=== PATIENT | female | born 1980 | race American Indian/Alaskan Native ===

== ENCOUNTER → 2017-10-19 08:24 | Outpatient (CLI) | payer MEDICAID, SELFPAY ==
[2017-10-21 11:40] LABS: Sequential Screen 2nd Trimeste SCREEN NEGATIVE
== END ==
DX: Z3A.16 16 weeks gestation of pregnancy (principal)
CPT/HCPCS: 36415; 86336

== ENCOUNTER → 2018-01-04 11:53 | Outpatient (CLI) | payer MEDICAID, SELFPAY ==
[2018-01-04 14:52] LABS: Hematocrit 34.3 % (36-46); Hemoglobin 11.5 g/dL (12.0-16.0)
[2018-01-04 15:22] LABS: GTT (PREG) 1 Hour PP 50gm Dose 101 mg/dL (76-139)
== END ==
DX: Z3A.26 26 weeks gestation of pregnancy (principal)
CPT/HCPCS: 36415; 82950; 85014; 85018

== ENCOUNTER 2018-01-20 09:09 | Observation (INO) | payer MEDICAID, SELFPAY ==
[2018-01-20] MEDS: NIFEdipine 10 MG CAPSULE PO ×4 (09:45→10:45)
[2018-01-20] MEDS: NIFEdipine 30 MG TAB ER PO (09:56)
[2018-01-20] MEDS: INDOMETHACIN 25 MG CAPSULE 50 MG PO (09:56)
[2018-01-20 10:17] LABS: Appearance Urine UA CLEAR; Bilirubin Urine UA NEGATIVE (NEGATIVE); Color Urine UA YELLOW; Glucose Urine UA NEGATIVE (Normal); Ketones Urine UA NEGATIVE (NEGATIVE); Leukocyte Esterase Urine UA NEGATIVE (NEGATIVE); Nitrite Urine UA Negative (Negative); Occult Blood Urine UA NEGATIVE (Negative); Protein Urine UA NEGATIVE (Negative); Specific Gravity Urine UA 1.015 (1.000-1.035); Urobilinogen Urine UA 0.2 E.U./dL (0.2)
[2018-01-20 10:17] LABS: Add Manual Diff / Slide Review NO; Basophils Percent Auto 0.5 % (0-2); Eosinophils Percent Auto 1.3 % (2-4); Hematocrit 35.3 % (36-46); Hemoglobin 11.9 g/dL (12.0-16.0); Lymphocytes Percent Auto 17.9 % (25-40); Mean Corpuscular HGB Conc 33.8 % (30-36); Mean Corpuscular Hemoglobin 28.8 PG (26-34); Mean Corpuscular Volume 85.2 fL (80-100); Monocytes Percent Auto 3.8 % (3-14); Neutrophils Absolute Auto 8300 /uL (3000-5900); Neutrophils Percent Auto 76.5 % (50-75); Platelet Count 364 X10^3/uL (150-400); Red Blood Cell Count 4.14 X10^6/uL (4.0-5.2); Red Cell Distribution Width 16.2 % (11.6-14.8); White Blood Cell Count 10.9 X10^3/uL (4.5-11.0)
[2018-01-20 10:23] LABS: Aspartate Aminotransferase 15 IU/L (14-36); Carbon Dioxide 18 mmol/L (22-32); Chloride 107 mmol/L (98-107); Estimated Glomerular Filt Rate > 60.0 mL/min (>60); HEMOLYSIS < 15 (0-50); Magnesium 1.9 mg/dL (1.6-2.3); Potassium 3.8 mmol/L (3.4-5.1); Sodium 134 mmol/L (137-145)
[2018-01-20 10:26] LABS: Blood Urea Nitrogen 2 mg/dL (7-17)
== END 2018-01-20 11:30 | disposition home or self-care (01) ==
DX: O60.03 Preterm labor without delivery, third trimester (principal); Z3A.29 29 weeks gestation of pregnancy
CPT/HCPCS: 59025; 59050; 80051; 81003; 82565; 82731; 83735; 84112; 84450; 84520; 84550; 85025; G0378; G0379

== ENCOUNTER → 2018-03-01 13:46 | Outpatient (CLI) | payer MEDICAID, SELFPAY | DX: Z34.93 Encounter for supervision of normal pregnancy, unspecified, third trimester (principal); Z3A.35 35 weeks gestation of pregnancy | CPT/HCPCS: 87081; 87653 ==

== ENCOUNTER → 2018-03-08 10:32 | Outpatient (CLI) | payer MEDICAID, SELFPAY ==
[2018-03-08 11:44] LABS: Add Manual Diff / Slide Review NO; Basophils Percent Auto 0.6 % (0-2); Eosinophils Percent Auto 0.9 % (2-4); Hematocrit 38.7 % (36-46); Hemoglobin 13.1 g/dL (12.0-16.0); Lymphocytes Percent Auto 23.4 % (25-40); Mean Corpuscular Hemoglobin 29.8 PG (26-34); Mean Corpuscular Volume 87.6 fL (80-100); Monocytes Percent Auto 3.8 % (3-14); Neutrophils Absolute Auto 7000 /uL (3000-5900); Neutrophils Percent Auto 71.3 % (50-75); Platelet Count 338 X10^3/uL (150-400); Red Blood Cell Count 4.41 X10^6/uL (4.0-5.2); Red Cell Distribution Width 16.4 % (11.6-14.8); White Blood Cell Count 9.8 X10^3/uL (4.5-11.0)
[2018-03-08 12:27] LABS: Alanine Aminotransferase 20 IU/L (9-52); Aspartate Aminotransferase 18 IU/L (14-36); BUN Creatinine Ratio 8.3 (6-22); Blood Urea Nitrogen 5 mg/dL (7-17); Estimated Glomerular Filt Rate > 60.0 mL/min (>60); Uric Acid 4.7 mg/dL (2.5-6.2)
== END ==
DX: O16.5 Unspecified maternal hypertension, complicating the puerperium (principal)
CPT/HCPCS: 36415; 82565; 84450; 84460; 84520; 84550; 85025

== ENCOUNTER 2018-03-15 11:09 | Observation (INO) | payer MEDICAID, SELFPAY ==
[2018-03-15] MEDS: MORPHINE 10 MG/ML INJ IM (14:10)
== END 2018-03-15 14:00 | disposition home or self-care (01) ==
DX: Z34.83 Encounter for supervision of other normal pregnancy, third trimester (principal); Z3A.37 37 weeks gestation of pregnancy
CPT/HCPCS: 59025; 59050; 96372; G0378; G0379; J2270

== ENCOUNTER 2018-03-17 12:50 | Outpatient (CLI) | payer MEDICAID, SELFPAY ==
--- NOTE | 2018-03-17 13:36 | PM.OBTRLD ---
Visit Information Visit Information Date of evaluation: 03/17/18 Primary OB Provider: Toi Ann On-call OB Provider: Susan Muhammad Reason for Evaluation: Yes rupture of membranes Exam Vital Signs (past 8 hours): Blood pressure 126/79, pulse of 95 Evaluation Evaluation Baseline heart rate: 125 Variability: Moderate (11-25) monitor accelerations: Present monitor decelerations: Absent Uterine Contraction Intensity: Mild Category of Tracing: I Non-invasive Membranes Rupture Test: negative Diagnosis, Plan/Disposition Final Diagnosis (1) 37 weeks gestation of : Current Visit: Yes Status: Acute (2) Third trimester : Current Visit: Yes Status: Acute Plan/Disposition Plan: Patient with no evidence of rupture membranes follow-up in 1 week or unless active labor, decreased movement, signs of preeclampsia
== END 2018-03-17 13:51 | disposition home or self-care (01) ==
LOC: OB 03-18 16:53
DX: Z03.71 Encounter for suspected problem with amniotic cavity and membrane ruled out (principal); Z3A.37 37 weeks gestation of pregnancy
CPT/HCPCS: 59025; 84112; G0378; G0379

== ENCOUNTER 2018-03-18 19:30 | Inpatient (IN) | payer MEDICAID, SELFPAY ==
[2018-03-18 20:30] VITALS: BP 172/104; PULSE 105
[2018-03-18] MEDS: HYDRALAZINE 20 MG/ML VIAL 5 MG IV ×2 (20:30→23:47)
[2018-03-18 20:40] LABS: Add Manual Diff / Slide Review NO; Eosinophils Percent Auto 0.6 % (2-4); Hematocrit 38.8 % (36-46); Lymphocytes Percent Auto 16.2 % (25-40); Mean Corpuscular HGB Conc 33.5 % (30-36); Mean Corpuscular Hemoglobin 29.4 PG (26-34); Mean Corpuscular Volume 87.8 fL (80-100); Neutrophils Absolute Auto 12000 /uL (3000-5900); Neutrophils Percent Auto 77.2 % (50-75); Platelet Count 337 X10^3/uL (150-400); Red Blood Cell Count 4.42 X10^6/uL (4.0-5.2); White Blood Cell Count 15.6 X10^3/uL (4.5-11.0)
--- NOTE | 2018-03-18 20:41 | PM.OBHP.1 ---
OB HPI Date/Time Date of admission: 03/18/18 Date Patient Seen: 03/18/18 Time Patient Seen: 20:20 History of Present Condition Chief complaint: OBSERVATION : 2 Para: 1 Estimated Date of Delivery: 04/04/18 Estimated Gestational Age (weeks): 37 Narrative: Jenni Mitchell is a 37 year old female 2 para 1 at 37 and 4/7 weeks by dates arrived on Labor and delivery in active labor with elevated blood pressures History of Present care: good care Dating criteria: LMP confirmed by 1st trimester US Ultrasounds: normal mid trimester US Obstetrical complications: gestational hypertension Medical complications: none Preadmission Labs Blood type: O (+) positive -: Antibody screen: negative, GBS status: negative, HBsAG: negative, HIV: negative, HSV 1: positive and HSV 2: negative -: Chlamydia screen: not detected and Gonorrhea screen: not detected -: Rubella: immune and Varicella: immune Sequential screen: Negative 1 hr GTT: 101 Prior (ies) History: 09/08/16 38 weeks female 5 lb 9 oz vaginal delivery with epidural Evaluation Evaluation Baseline heart rate: 120 Variability: Moderate (11-25) monitor accelerations: Present monitor decelerations: Absent Contraction Frequency (minutes): 2 Uterine Contraction Intensity: Moderate Category of Tracing: I Cervical dilation (cm): 4 Cervical effacement (%): 90 station: 0 PFSH Medical History Asthma (Chronic) Surgical History History of cholecystectomy (Inactive) Meds Home Medications Medication Instructions Recorded Confirmed Type albuterol sulfate [Ventolin HFA] #0 09/08/16 History vit-iron fum-folic ac #0 09/08/16 History [Mynatal] nifedipine ER 30 mg 30 mg PO BID #60 tab 02/16/18 02/16/18 Rx tablet,extended release 24 hr Allergies Allergy/AdvReac Type Severity Reaction Status Date / Time codeine Allergy Intermediate HIVES Unverified 09/09/17 12:21 Review of Systems Review of Systems Patient denies headaches, scotomata, epigastric pain. She has had good movement. No rupture membranes. All systems reviewed & are unremarkable except as noted in HPI and below Exam Vital Signs (past 8 hours): blood pressure 155/108, pulse of 93 Narrative Exam Narrative: Patient is HEENT exam poor dentition an abnormal nasal structure. Lungs are clear to auscultation percussion. Heart is regular rate and rhythm no S3-S4 or murmurs. Abdomen is gravid and nontender. DTRs are brisk with no clonus and no edema. Objective Labs Result Diagrams: 03/18/18 20:25 03/18/18 20:33 Assessment and Plan (1) 37 weeks gestation of : Current visit: No Status: Acute (2) Hypertension affecting , antepartum: Current visit: Yes Status: Acute Patient in active labor with hypertension no specific evidence of preeclampsia. Will do preeclamptic labs and treat with IV hydralazine. Monitor for need to start magnesium for preeclampsia. Patient is requesting epidural. Anticipate vaginal delivery.
[2018-03-18 20:59] LABS: Alanine Aminotransferase 16 IU/L (9-52); Albumin 3.4 g/dL (3.5-5.0); Alkaline Phosphatase 282 U/L (38-126); Aspartate Aminotransferase 16 IU/L (14-36); BUN Creatinine Ratio 6.3 (6-22); Bilirubin Total 0.3 mg/dL (0.2-1.3); Blood Urea Nitrogen 5 mg/dL (7-17); Calcium 8.4 mg/dL (8.4-10.2); Carbon Dioxide 21 mmol/L (22-32); Chloride 107 mmol/L (98-107); Estimated Glomerular Filt Rate > 60.0 mL/min (>60); Globulin 3.4 g/dL (1.7-4.1); Glucose 98 mg/dL (70-100); HEMOLYSIS < 15 (0-50); Magnesium 1.9 mg/dL (1.6-2.3); Potassium 3.6 mmol/L (3.4-5.1); Sodium 136 mmol/L (137-145); Total Protein 6.8 g/dL (6.3-8.2); Uric Acid 4.9 mg/dL (2.5-6.2)
[2018-03-18] MEDS: LACTATED RINGERS 1,000 ML 100 ML IV (21:16)
[2018-03-18 22:24] VITALS: BP 159/108
[2018-03-18 23:47] VITALS: BP 160/107; PULSE 117
[2018-03-19] VITALS (7 sets, daily range): BP systolic 109–139; BP diastolic 81–97; PULSE 91–129; RESP 17; TEMP 36.3–37; O2SAT 99–100
--- NOTE | 2018-03-19 | PATH_ITS ---
[facility] Accession Number: [id number] . 01 Material submitted: . PLACENTAL FRAGMENTS . 02 Diagnosis: Placental Fragments: Products of conception/chorionic villi identified. MRV/03/22/2018 . 02 Electronically signed: . Arlen Miguel MD, Pathologist NPI- [id number] . 01 Gross description: . Received in formalin, labeled placental fragments, are multiple fragments of awad-brown and dark maroon spongy hemorrhagic tissue (5.2 x 3.5 x 1.2 cm in aggregate). Entirely submitted in cassettes A1-A4. ([id number]) /FRR . 02 Pathologist provided ICD-10: O43.90 . 02 CPT . 679008 Performed at: 01 [facility] [address] [place] [address], [place], [place] [id number] MD Harris Valverde MD Phone: [phone] Performed at: 02 [facility] [address] [place], [place] [id number] MD Rome Gallardo MD Phone: [phone]
--- NOTE | 2018-03-19 01:56 | PM.OBPRVD ---
Events: Induced HTN Delivery date: 03/19/18 Intrapartal events: None Induction method: none Route of delivery: Laceration description: None Estimated blood loss (mL): 300 Anesthesia type: Epidural Complications: Retained placenta fragment Narrative: Patient arrived on Labor and delivery in active labor. She received an epidural catheter for pain control. heart tones were category 1 to category 2 throughout labor. Patient delivered spontaneously, over an intact perineum. There was a nuchal cord. The infant was placed on the maternal abdomen and after cord stopped pulsating the cord was clamped cut and cord bloods obtained. The placenta did not deliver spontaneously. After 30 min the a attempt at manual delivery removed the majority of the placenta but it was evident there were still placental fragments left. The operating room staff was called and patient was taken for a curettage which removed fragments of retained placenta. Patient had no cervical, vaginal, or perineal tears. Baby 1: Infant gender: Male Presentation: vertex position: Right Occiput Anterior Placenta delivery description: Curettage cord vessel description: Nuchal Cord score (1 min): 6 score (5 min): 7 score (10 min): 9 Plan for aftercare: Routine post vaginal delivery with careful monitoring for bleeding.
--- NOTE | 2018-03-19 02:49 | PM.PREOP ---
Pre-operative Note Interval Note Pre-op Check: Yes History & Physical exam performed today by Physician Changes: Yes H&P completed within 30 days and has changed as indicated here:: vaginal delivery followed by retained placental fragment
[2018-03-19] MEDS: CEFAZOLIN 2 GM/100 ML FROZ.PIGGY IV (02:55)
--- NOTE | 2018-03-19 03:03 | SUR.OPER ---
Lithotomy on padded OR bed, head on pillow, arms secured on padded arm boards at <90 degrees abduction. Legs secured in padded yellow fins stirrups.
--- NOTE | 2018-03-19 03:25 | PM.OP.1 ---
Operative Date/Time/Diagnoses Date of procedure: 03/19/18 Time of procedure: 03:25 Pre-op diagnosis: Retained placental fragment Post-op diagnosis: same Procedure & Clinicians Procedure: Uterine curettage Same procedure as scheduled: Yes Indications: Retained placental fragment Surgeon: Susan Muhammad Click Yes if Unassisted: Yes Anesthesia Type: Epidural and Sedation Operative Notes Findings: Retained placental fragment Closure Type: not applicable Specimen(s): other (Placental fragments) Estimated Blood Loss (mL): 200 Blood products transfused: none Procedure in detail: Patient was brought to the operating room where she underwent sedation. She was placed in low Yellofin stirrups and prepped and draped in the usual sterile fashion. 2 g of Ancef were given IV. Patient was prepped and draped the usual sterile fashion. Her bladder was drained with an in-and out catheter. A ring forceps was was placed on the anterior lip of the cervix. Clots were removed. Gentle scraping removed placental fragments. The patient's bleeding seemed to be under control. She went to the recovery room in good condition. Counts of instruments and sponges were correct. Complications: none Condition: stable Disposition: other ( bernardo) Plan for aftercare: Routine with monitoring for bleeding
--- NOTE | 2018-03-19 03:28 | P.OP_ITS ---
Operative Date/Time/Diagnoses Date of procedure: 03/19/18 Time of procedure: 03:25 Pre-op diagnosis: Retained placental fragment Post-op diagnosis: same Procedure & Clinicians Procedure: Uterine curettage Same procedure as scheduled: Yes Indications: Retained placental fragment Surgeon: Susan Muhammad Click Yes if Unassisted: Yes Anesthesia Type: Epidural and Sedation Operative Notes Findings: Retained placental fragment Closure Type: not applicable Specimen(s): other (Placental fragments) Estimated Blood Loss (mL): 200 Blood products transfused: none Procedure in detail: Patient was brought to the operating room where she underwent sedation. She was placed in low Yellofin stirrups and prepped and draped in the usual sterile fashion. 2 g of Ancef were given IV. Patient was prepped and draped the usual sterile fashion. Her bladder was drained with an in -and out catheter. A ring forceps was was placed on the anterior lip of the cervix. Clots were removed. Gentle scraping removed placental fragments. The patient's bleeding seemed to be under control. She went to the recovery room in good condition. Counts of instruments and sponges were correct. Complications: none Condition: stable Disposition: other ( bernardo) Plan for aftercare: Routine with monitoring for bleeding
[2018-03-19] MEDS: IBUPROFEN 600 MG TABLET PO ×3 (04:08→18:41)
[2018-03-19] MEDS: HYDROCODONE/ACET 5/325 TABLET 2 TAB PO ×5 (04:55→22:13)
[2018-03-19] MEDS: DOCUSATE 250 MG CAPSULE PO (09:21)
[2018-03-19] MEDS: LABETALOL 100 MG TABLET PO (16:43)
[2018-03-20 03:35] VITALS: TEMP 36.3
[2018-03-20] MEDS: HYDROCODONE/ACET 5/325 TABLET 2 TAB PO ×2 (03:35→08:28)
[2018-03-20] MEDS: IBUPROFEN 600 MG TABLET PO (03:39)
[2018-03-20 07:27] LABS: Add Manual Diff / Slide Review NO; Basophils Percent Auto 0.6 % (0-2); Eosinophils Percent Auto 0.8 % (2-4); Hematocrit 29.5 % (36-46); Hemoglobin 10.1 g/dL (12.0-16.0); Lymphocytes Percent Auto 28.7 % (25-40); Mean Corpuscular HGB Conc 34.2 % (30-36); Mean Corpuscular Hemoglobin 29.8 PG (26-34); Mean Corpuscular Volume 87.2 fL (80-100); Monocytes Percent Auto 3.1 % (3-14); Neutrophils Absolute Auto 9400 /uL (3000-5900); Neutrophils Percent Auto 66.8 % (50-75); Platelet Count 304 X10^3/uL (150-400); Red Blood Cell Count 3.38 X10^6/uL (4.0-5.2); Red Cell Distribution Width 16.3 % (11.6-14.8)
--- NOTE | 2018-03-20 08:20 | PM.OBDS.1 ---
Discharge Providers Date of admission: 03/18/18 19:30 Primary care physician: Toi Ann MD Consults: 03/19/18 03:52 Consult to Serology Teacher Routine Comment: Discharge provider: Toi Ann MD Discharge Date: 03/20/18 Summary Date Patient Seen: 03/20/18 Time Patient Seen: 08:23 Hospital Course: The patient is a 37-year-old female two now para two who presented in active labor. Patient had a spontaneous vaginal delivery of a 37 week male infant weighing 5 lb 14 oz with scores of eight at 1 min nine at 5 min. Patient had a retained placenta and was taken to the operating room where a curettage was performed. Post delivery and curettage the patient did wel. She remained afebrile with stable vital signs. The patient had mildly elevated blood pressures and was treated with labetalol. The labetalol dose was 100 b.i.d.. Peripartum Data Delivery Method: Natural Vaginal Laceration description: None Procedures: Dilatation and curettage complications: retained placenta Discharge Diagnosis (1) 37 weeks gestation of : Status: Acute Problem Details: The patient is a 37-year-old [place] female who presented in active labor at 37 weeks. Patient delivered spontaneously without difficulty but had a retained placenta which required curettage. Post delivery she did well. She remained afebrile with stable vital signs and was progressively elevated and ambulated. (2) Hypertension affecting , antepartum: Status: Acute Problem Details: Patient with gestational hypertension treated with labetalol and discharged on 100 mg b.i.d. Status at Discharge Functional status at discharge: independent ambulation Overall status at discharge: patient is back to baseline Time Spent with Patient Total time spent providing and/or coordinating discharge services: Less than 30 minutes Objective Labs Result Diagrams: 03/20/18 Unknown 03/18/18 20:33 Labs: Laboratory Results - last 24 hr 03/20/18 Unknown WBC 14.0 H RBC 3.38 L Hgb 10.1 L Hct 29.5 L MCV 87.2 MCH 29.8 MCHC 34.2 RDW 16.3 H Plt Count 304 Neut % (Auto) 66.8 Lymph % (Auto) 28.7 [place] % (Auto) 3.1 Eos % (Auto) 0.8 L Baso % (Auto) 0.6 Neut # (Auto) 9400 H Discharge Plan Discharge Plan Patient Disposition: Home Discharge comment: follow up 1 week for blood pressure check Discharge Med Rec/Prescriptions Prescriptions: New ibuprofen 600 mg tablet 600 mg PO QID PRN (Reason: pain) Qty: 20 RF: 0 hydrocodone-acetaminophen [Vicodin] 5-300 mg tablet 1 tab PO Q4H PRN (Reason: pain) Qty: 20 RF: 0 benzocaine-menthol [Dermoplast (with menthol)] 20-0.5 % Aerosol 1 spray Topical Q1HR PRN (Reason: perineal pain) Qty: 1 RF: 0 labetalol 100 mg Tablet 100 mg PO BID Qty: 28 RF: 0 docusate sodium 250 mg Capsule 250 mg PO DAILY Qty: 20 RF: 0 lanolin [Gxn-[id number]] Cream 1 applic Topical PRN PRN (Reason: Tenderness) Qty: 1 RF: 0 Continue albuterol sulfate [Ventolin HFA] 90 MCG/PUFF HFA aerosol inhaler Qty: 0 RF: 0 vit-iron fum-folic ac [Mynatal] 1 EACH capsule Qty: 0 RF: 0 Discontinued nifedipine 30 mg tablet extended release 24hr 30 mg PO BID Qty: 60 RF: 0 Follow up/Referrals: Toi Ann MD [Primary Care Provider] - 03/25/18 12:00 am Provider Discharge Instructions Diet: Diet as Tolerated Activity: up ad ;jennifer Skin/Wound/Dressing Care Report to your healthcare provider any signs of infection, such as:: chills, fever, increased pain and unusual drainage Other wound treatment: keep clean and dry Discharge Data Primary Care Provider: Toi Ann Attending Provider: Susan Muhammad Admit Date/Time: 03/18/18 19:30
[2018-03-20 08:26] VITALS: BP 122/84; PULSE 88
[2018-03-20] MEDS: LABETALOL 100 MG TABLET PO (08:26)
[2018-03-20] MEDS: DOCUSATE 250 MG CAPSULE PO (08:26)
--- NOTE | 2018-03-20 08:53 | PM.OBHP.1 ---
OB HPI Date/Time Date of admission: 03/20/18 Date Patient Seen: 03/20/18 Time Patient Seen: 08:54 History of Present Condition Chief complaint: OBSERVATION : 1 Para: 0 Estimated Date of Delivery: 03/23/18 Estimated Gestational Age (weeks): 39 Narrative: Jenni Mitchell is a 37 year old female Evaluation Evaluation Laboratory results: Laboratory Tests 03/18/18 03/18/18 03/18/18 20:25 20:25 20:33 WBC 15.6 H RBC 4.42 Hgb 13.0 Hct 38.8 MCV 87.8 MCH 29.4 MCHC 33.5 RDW 16.0 H Plt Count 337 Neut % (Auto) 77.2 H Lymph % (Auto) 16.2 L [place] % (Auto) 5.0 Eos % (Auto) 0.6 L Baso % (Auto) 1.0 Neut # (Auto) 20452 H Sodium 136 L Potassium 3.6 Chloride 107 Carbon Dioxide 21 L BUN 5 L Creatinine 0.80 Estimated GFR > 60.0 BUN/Creatinine Ratio 6.3 Glucose 98 Uric Acid 4.9 Calcium 8.4 Magnesium 1.9 Total Bilirubin 0.3 AST 16 ALT 16 Alkaline Phosphatase 282 H Total Protein 6.8 Albumin 3.4 L Globulin 3.4 Albumin/Globulin Ratio 1.0 Blood Type O Positive Antibody Screen Negative 03/20/18 Unknown WBC 14.0 H RBC 3.38 L Hgb 10.1 L Hct 29.5 L MCV 87.2 MCH 29.8 MCHC 34.2 RDW 16.3 H Plt Count 304 Neut % (Auto) 66.8 Lymph % (Auto) 28.7 [place] % (Auto) 3.1 Eos % (Auto) 0.8 L Baso % (Auto) 0.6 Neut # (Auto) 9400 H Sodium Potassium Chloride Carbon Dioxide BUN Creatinine Estimated GFR BUN/Creatinine Ratio Glucose Uric Acid Calcium Magnesium Total Bilirubin AST ALT Alkaline Phosphatase Total Protein Albumin Globulin Albumin/Globulin Ratio Blood Type Antibody Screen [facility] Medical History Asthma (Chronic) Surgical History History of cholecystectomy (Inactive) Social History Smoking Status: Unknown if ever smoked Meds Home Medications Medication Instructions Recorded Confirmed Type albuterol sulfate [Ventolin HFA] #0 09/08/16 History vit-iron fum-folic ac #0 09/08/16 History [Mynatal] benzocaine-menthol [Dermoplast 1 spray TOPICAL Q1HR PRN #1 g 03/20/18 Rx (with menthol)] docusate sodium 250 mg PO DAILY #20 cap 03/20/18 Rx hydrocodone-acetaminophen [Vicodin] 1 tab PO Q4H PRN #20 tab 03/20/18 Rx ibuprofen 600 mg PO QID PRN #20 tab 03/20/18 Rx labetalol 100 mg PO BID #28 tab 03/20/18 Rx lanolin [Bjw-A-Hwqeig] 1 applic TOPICAL PRN PRN #1 g 03/20/18 Rx Allergies Allergy/AdvReac Type Severity Reaction Status Date / Time codeine Allergy Intermediate HIVES Verified 03/18/18 22:28 Exam Vital Signs (past 8 hours): - 03/20/18 03:35 03/20/18 08:26 Temperature 97.4 F L Pulse Rate 88 Blood Pressure 122/84 Oxygen Delivery Method Room Air Objective Labs Result Diagrams: 03/20/18 Unknown 03/18/18 20:33 Labs: Laboratory Results - last 24 hr 03/20/18 Unknown WBC 14.0 H RBC 3.38 L Hgb 10.1 L Hct 29.5 L MCV 87.2 MCH 29.8 MCHC 34.2 RDW 16.3 H Plt Count 304 Neut % (Auto) 66.8 Lymph % (Auto) 28.7 [place] % (Auto) 3.1 Eos % (Auto) 0.8 L Baso % (Auto) 0.6 Neut # (Auto) 9400 H Assessment and Plan (1) 37 weeks gestation of : Problem details: The patient is a 37-year-old [place] female who presented in active labor at 37 weeks. Patient delivered spontaneously without difficulty but had a retained placenta which required curettage. Post delivery she did well. She remained afebrile with stable vital signs and was progressively elevated and ambulated. Current visit: No Status: Acute (2) Hypertension affecting , antepartum: Problem details: Patient with gestational hypertension treated with labetalol and discharged on 100 mg b.i.d. Current visit: Yes Status: Acute
--- NOTE | 2018-03-20 08:56 | P.HPOB_ITS ---
OB HPI Date/Time Date of admission: 03/20/18 Date Patient Seen: 03/20/18 Time Patient Seen: 08:54 History of Present Condition Chief complaint: OBSERVATION : 1 Para: 0 Estimated Date of Delivery: 03/23/18 Estimated Gestational Age (weeks): 39 Narrative: Jenni Mitchell is a 37 year old female Evaluation Evaluation Laboratory results: Laboratory Tests 03/18/18 03/18/18 03/18/18 20:25 20:25 20:33 WBC 15.6 H RBC 4.42 Hgb 13.0 Hct 38.8 MCV 87.8 MCH 29.4 MCHC 33.5 RDW 16.0 H Plt Count 337 Neut % (Auto) 77.2 H Lymph % (Auto) 16.2 L [place] % (Auto) 5.0 Eos % (Auto) 0.6 L Baso % (Auto) 1.0 Neut # (Auto) 43882 H Sodium 136 L Potassium 3.6 Chloride 107 Carbon Dioxide 21 L BUN 5 L Creatinine 0.80 Estimated GFR > 60.0 BUN/Creatinine Ratio 6.3 Glucose 98 Uric Acid 4.9 Calcium 8.4 Magnesium 1.9 Total Bilirubin 0.3 AST 16 ALT 16 Alkaline Phosphatase 282 H Total Protein 6.8 Albumin 3.4 L Globulin 3.4 Albumin/Globulin Ratio 1.0 Blood Type O Positive Antibody Screen Negative 03/20/18 Unknown WBC 14.0 H RBC 3.38 L Hgb 10.1 L Hct 29.5 L MCV 87.2 MCH 29.8 MCHC 34.2 RDW 16.3 H Plt Count 304 Neut % (Auto) 66.8 Lymph % (Auto) 28.7 [place] % (Auto) 3.1 Eos % (Auto) 0.8 L Baso % (Auto) 0.6 Neut # (Auto) 9400 H Sodium Potassium Chloride Carbon Dioxide BUN Creatinine Estimated GFR BUN/Creatinine Ratio Glucose Uric Acid Calcium Magnesium Total Bilirubin AST ALT Alkaline Phosphatase Total Protein Albumin Globulin Albumin/Globulin Ratio Blood Type Antibody Screen [facility] Medical History Asthma (Chronic) Surgical History History of cholecystectomy (Inactive) Social History Smoking Status: Unknown if ever smoked Meds Home Medications Medication Instructions Recorded Confirmed Type albuterol sulfate [Ventolin HFA] #0 09/08/16 History vit-iron fum-folic ac #0 09/08/16 History [Mynatal] benzocaine-menthol [Dermoplast 1 spray TOPICAL Q1HR PRN #1 g 03/20/18 Rx (with menthol)] docusate sodium 250 mg PO DAILY #20 cap 03/20/18 Rx hydrocodone-acetaminophen [Vicodin] 1 tab PO Q4H PRN #20 tab 03/20/18 Rx ibuprofen 600 mg PO QID PRN #20 tab 03/20/18 Rx labetalol 100 mg PO BID #28 tab 03/20/18 Rx lanolin [[id number]-B-Gqitpj] 1 applic TOPICAL PRN PRN #1 g 03/20/18 Rx Allergies Allergy/AdvReac Type Severity Reaction Status Date / Time codeine Allergy Intermediate HIVES Verified 03/18/18 22:28 Exam Vital Signs (past 8 hours): - 03/20/18 03:35 03/20/18 08:26 Temperature 97.4 F L Pulse Rate 88 Blood Pressure 122/84 Oxygen Delivery Method Room Air Objective Labs Result Diagrams: 03/20/18 Unknown 03/18/18 20:33 Labs: Laboratory Results - last 24 hr 03/20/18 Unknown WBC 14.0 H RBC 3.38 L Hgb 10.1 L Hct 29.5 L MCV 87.2 MCH 29.8 MCHC 34.2 RDW 16.3 H Plt Count 304 Neut % (Auto) 66.8 Lymph % (Auto) 28.7 [place] % (Auto) 3.1 Eos % (Auto) 0.8 L Baso % (Auto) 0.6 Neut # (Auto) 9400 H Assessment and Plan (1) 37 weeks gestation of : Problem details: The patient is a 37-year-old [place] female who presented in active labor at 37 weeks. Patient delivered spontaneously without difficulty but had a retained placenta which required curettage. Post delivery she did well. She remained afebrile with stable vital signs and was progressively elevated and ambulated. Current visit: No Status: Acute (2) Hypertension affecting , antepartum: Problem details: Patient with gestational hypertension treated with labetalol and discharged on 100 mg b.i.d. Current visit: Yes Status: Acute
[2018-03-20 10:47] VITALS: BP 122/84; PULSE 88; RESP 17; TEMP 36.6
== END 2018-03-20 13:35 | disposition home or self-care (01) | DRG 807 ==
PROVIDERS: Admitting Provider Specialist; Visit Provider Specialist
PROC: 10E0XZZ Delivery of Products of Conception, External Approach (ICD-10-PCS; CPT 58120; principal; 2018-03-19 02:40)
DX: O13.4 Gestational [pregnancy-induced] hypertension without significant proteinuria, complicating childbirth (principal); Z37.0 Single live birth; Z3A.37 37 weeks gestation of pregnancy; O69.81X0 Labor and delivery complicated by cord around neck, without compression, not applicable or unspecified; O72.2 Delayed and secondary postpartum hemorrhage
CPT/HCPCS: 01967; 36415; 59025; 59050; 59160; 59409; 80053; 83735; 84112; 84550; 85025; 86850; 86900; 86901; 88305; G0379; J0360; J0690; J2704

== ENCOUNTER 2019-03-13 17:35 | Emergency (ER) | payer MEDICAID, OTHER, SELFPAY ==
[2019-03-13 17:46] VITALS: BP 127/80; PULSE 73; RESP 18; TEMP 36.4; O2SAT 99
--- NOTE | 2019-03-13 17:52 | DI.US.S_ITS ---
PROCEDURE: US OB <= 14 WEEKS FETUS INDICATIONS: SPOTTING OUTSIDE/PRIOR DATING DATA: Last menstrual period (LMP): Not available. LMP-based estimated date of delivery (GURU): Not available. First dating scan (date and location): This study, 03/13/19. Estimated date of delivery (GURU) from first dating scan: 11/11/19, plus or -7 days. TECHNIQUE: Real-time scanning was performed of the fetus and maternal pelvic organs, with image documentation. COMPARISON: None. FINDINGS: Embryo: Not seen but a gestational sac is present with 5 mm mean sac diameter correlating with a gestational age of 5 weeks 2 days, plus or -7 days. Measurement variability in dating: +/- 4 weeks by LMP, +/- 7 days by mean sac diameter (use before 6 weeks gestation if crown-rump length not able to be measured), +/- 5 days by crown-rump length (up to 8 weeks 6 days gestation), +/- 7 days by crown-rump length (up to 13 weeks 6 days gestation). Maternal organs: Ovaries normal considering gestational status. Limited images through the kidneys demonstrate no hydronephrosis. IMPRESSION: Apparent intrauterine gestation, by mean sac diameter measuring approximately 5 weeks 2 days of gestational age. Assuming viable gestation is present the liver they would be projected to be centered on 11/11/19. Followup anatomic survey at 20 weeks gestation is recommended. Correlation with quantitative beta hCG may be warranted depending on clinical status to confirm viable gestation. Dictated by: Daron Jaime M.D. on 03/13/2019 at 19:12 Approved by: Daron Jaime M.D. on 03/13/2019 at 19:13
--- NOTE | 2019-03-13 18:37 | ED.PREGNANCY ---
HPI - General Chief complaint: Vaginal Bleeding Stated complaint: 13WKS PREG AND HAS SPOTTING Time Seen by Provider: 03/13/19 17:59 Source: patient Mode of arrival: Ambulatory Limitations: no limitations History of Present Illness HPI Narrative: Patient is a 38-year-old female presenting with some light spotting today. She only noticed it when she wiped she has had a was bright red no cramping. She is not sure exactly how far along she is she initially thought 13 weeks but really does not know. She has no nausea or vomiting. No problems previous pregnancies. MD Complaint: vaginal bleeding Related Data Home Medications Medication Instructions Recorded Confirmed Mynatal 1 cap PO DAILY #0 09/08/16 03/13/19 Allergies Allergy/AdvReac Type Severity Reaction Status Date / Time codeine Allergy Intermediate HIVES Verified 03/13/19 17:51 Review of Systems Review of Systems Narrative: GENERAL: Denies chills, fatigue, malaise, fever, sweats, travel HEENT: Denies sinus pain, ear pain, sore throat, difficulty swallowing, neck pain RESPIRATORY: Denies dyspnea, cough, wheezing, hemoptysis, sputum. CARDIOVASCULAR: Denies chest pain, palpitations, orthopnea, edema GASTROINTESTINAL: Denies nausea, vomiting, abdominal pain, diarrhea, constipation, melena. : Denies dysuria, frequency, incontinence, hematuria, urinary retention, flank pain. BOOKKEEPING MACHINE OPERATOR: See HPI MUSCULOSKELETAL: Denies weakness, joint pain, or bony pain SKIN: No rash, no erythema, no pruritus NEUROLOGIC: Denies weakness, dizziness, headache, numbness, change in speech, confusion PSYCHIATRIC: No concerning psychosocial issues. 12 point review of systems is negative except for those stated above and HPI Exam Initial Vital Signs Initial Vital Signs: Vital Signs Temperature 97.5 F L 03/13/19 17:46 Pulse Rate 73 03/13/19 17:46 Respiratory Rate 18 03/13/19 17:46 Blood Pressure 127/80 03/13/19 17:46 Pulse Oximetry 99 03/13/19 17:46 GENERAL: Well-appearing, well-nourished and in no acute distress. HEENT: Head atraumatic,EOMI, pupils reactive, face symmetric, moist mucous membranes CARDIOVASCULAR: Regular rate and rhythm without murmurs, rubs or gallops. RESPIRATORY: Breath sounds equal bilaterally, no wheezes rales or rhonchi. ABDOMEN: Soft, nontender. Normoactive bowel sounds all 4 quadrants. No guarding or rebound. : No CVA tenderness EXTREMITIES: Normal range of motion, no clubbing or edema. Neurovascularly intact NEUROLOGICAL: Alert and oriented x4.Normal gait and speech. SKIN: Warm, dry, no laceration, no petechiae, no rashes or lesions. Course Orders Ordered: ED Orders 03/13/19 17:52 US OB <= 14 weeks fetus Stat 03/13/19 18:13 ABO RH Type Stat Complete Blood Count AUTO DIFF Stat Comprehensive Metabolic Panel Stat HCG Quantitative Stat 03/13/19 18:14 Urine Culture Stat Urine Microscopic Stat Vital Signs Vital signs: Vital Signs - 8 hr 03/13/19 17:46 03/13/19 19:22 Temperature 97.5 F L Pulse Rate 73 90 Respiratory Rate 18 16 Blood Pressure 127/80 Blood Pressure [Right Arm] 129/89 Pulse Oximetry 99 100 MDM - OB/Uterine Contractions Lab Data Attestation: I reviewed the patient's lab results. Result diagrams: 03/13/19 18:13 03/13/19 18:13 Labs: Lab Results 03/13/19 03/13/19 03/13/19 Range/Units 18:13 18:13 18:14 WBC 14.0 H (4.5-11.0) X10^3/uL RBC 4.66 (4.0-5.2) X10^6/uL Hgb 12.8 (12.0-16.0) g/dL Hct 39.4 (36-46) % MCV 84.5 (80-100) fL MCH 27.4 (26-34) PG MCHC 32.5 (30-36) % RDW 15.5 H (11.6-14.8) % Plt Count 377 (150-400) X10^3/uL Neut % (Auto) 80.4 H (50-75) % Lymph % (Auto) 11.8 L (25-40) % [place] % (Auto) 4.1 (3-14) % Eos % (Auto) 3.0 (2-4) % Baso % (Auto) 0.7 (0-2) % Neut # (Auto) 01135 H (3136-2486) /uL Lymph # (Auto) 1700 (2888-2964) /uL [place] # (Auto) 600 (0-900) /uL Eos # (Auto) 400 (0-450) /uL Baso # (Auto) 100 (0-100) /uL Sodium 137 (137-145) mmol/L Potassium 3.4 (3.4-5.1) mmol/L Chloride 106 (98-107) mmol/L Carbon Dioxide 22 (22-32) mmol/L BUN 6 L (7-17) mg/dL Creatinine 0.70 (0.52-1.04) mg/dL Estimated GFR > 60.0 (>60) mL/min BUN/Creatinine Ratio 8.6 (6-22) Glucose 115 H (70-100) mg/dL Calcium 8.5 (8.4-10.2) mg/dL Total Bilirubin 0.3 (0.2-1.3) mg/dL AST 22 (14-36) IU/L ALT 19 (9-52) IU/L Alkaline Phosphatase 104 (38-126) U/L Total Protein 7.6 (6.3-8.2) g/dL Albumin 4.1 (3.5-5.0) g/dL Globulin 3.5 (1.7-4.1) g/dL Albumin/Globulin Ratio 1.2 (1.0-2.8) HCG, Quant 2275.2 mIU/mL Urine RBC None seen (0-5/HPF) Urine WBC 1-5/hpf (0-5/HPF) Ur Squamous Epith Cells 1-5 /hpf (0-5/HPF) Urine Bacteria Few (2-10) H (None) Urine Mucus 1+ H (Negative) Ur Culture Indicated? Specimen cultured Point of Care Testing Test Results Positive Urine Dip Bedside Urine Glucose Negative Bedside Urine Bilirubin - Negative Bedside Urine Ketone +/- 5 Urine Specific [place] 1.020 Bedside Urine Occult Blood - Negative Bedside Urine pH 6.5 Bedside Urine Protein +/- 15 Bedside Urine Urobilinogen - Negative Bedside Urine Nitrite - Negative Bedside Urine Leukocytes + 70 Esterase Imaging Data OB US: Radiologist's impression: PROCEDURE: US OB <= 14 WEEKS FETUS INDICATIONS: SPOTTING OUTSIDE/PRIOR DATING DATA: Last menstrual period (LMP): Not available. LMP-based estimated date of delivery (GURU): Not available. First dating scan (date and location): This study, 03/13/19. Estimated date of delivery (GURU) from first dating scan: 11/11/19, plus or -7 days. TECHNIQUE: Real-time scanning was performed of the fetus and maternal pelvic organs, with image documentation. COMPARISON: None. FINDINGS: Embryo: Not seen but a gestational sac is present with 5 mm mean sac diameter correlating with a gestational age of 5 weeks 2 days, plus or -7 days. Measurement variability in dating: +/- 4 weeks by LMP, +/- 7 days by mean sac diameter (use before 6 weeks gestation if crown-rump length not able to be measured), +/- 5 days by crown-rump length (up to 8 weeks 6 days gestation), +/- 7 days by crown-rump length (up to 13 weeks 6 days gestation). Maternal organs: Ovaries normal considering gestational status. Limited images through the kidneys demonstrate no hydronephrosis. IMPRESSION: Apparent intrauterine gestation, by mean sac diameter measuring approximately 5 weeks 2 days of gestational age. Assuming viable gestation is present the liver they would be projected to be centered on 11/11/19. Followup anatomic survey at 20 weeks gestation is recommended. Correlation with quantitative beta hCG may be warranted depending on clinical status to confirm viable gestation. Dictated by: Daron Jaime M.D. on 03/13/2019 at 19:12 Approved by: Daron Jaime M.D. on 03/13/2019 at 19:13 MDM Narrative Medical decision making narrative: Patient has minimal amount of bleeding. Elevated HCG and 5 week on ultrasound. I explained threatened and she needs to have repeat ultrasound. Also when to return to ED. Amoxicillin called in to look on her drug for patient for UTI amoxicillin 500 mg twice a day for 7 days Discharge Plan Departure Patient Disposition: Home Clinical Impression: , threatened, UTI (urinary tract infection) Discharge Date/Time: 03/13/19 19:48 Instructions: Threatened Activity Restrictions/Additional Instructions: [facility] [place]275.2 Due date: 11/11/19 *You have been diagnosed with Threatened *What to do: You need to follow up with your TRAILER PARK MANAGER. NO SEX, until bleeding stops *Continue to take medications as directed *Follow up with your primary care provider in 2-3 days *Return to ER if you should have increased vaginal bleeding, increasing cramping any new, worsening or concerning symptoms Prescriptions: No Action Mynatal 1 EACH capsule 1 cap PO DAILY Qty: 0 RF: 0 Referrals: Toi Ann MD [Primary Care Provider] -
[2019-03-13 18:46] LABS: Bacteria Urine Few (2-10); Culture Indicated Urine Specimen Cultured; Mucus Urine 1+ (Negative); RBC Urine None Seen (0-5/HPF); Squamous Epithelial Cell Urine 1-5 /HPF (0-5/HPF); WBC Urine 1-5/HPF (0-5/HPF)
[2019-03-13 18:47] LABS: Add Manual Diff / Slide Review NO; Basophils Absolute Auto 100 /uL (0-100); Basophils Percent Auto 0.7 % (0-2); Eosinophils Absolute Auto 400 /uL (0-450); Hematocrit 39.4 % (36-46); Hemoglobin 12.8 g/dL (12.0-16.0); Lymphocytes Absolute Auto 1700 /uL (1100-4500); Lymphocytes Percent Auto 11.8 % (25-40); Mean Corpuscular HGB Conc 32.5 % (30-36); Mean Corpuscular Hemoglobin 27.4 PG (26-34); Mean Corpuscular Volume 84.5 fL (80-100); Monocytes Absolute Auto 600 /uL (0-900); Monocytes Percent Auto 4.1 % (3-14); Neutrophils Absolute Auto 11200 /uL (1500-7000); Neutrophils Percent Auto 80.4 % (50-75); Platelet Count 377 X10^3/uL (150-400); Red Blood Cell Count 4.66 X10^6/uL (4.0-5.2); Red Cell Distribution Width 15.5 % (11.6-14.8)
[2019-03-13 18:59] LABS: Alanine Aminotransferase 19 IU/L (9-52); Albumin 4.1 g/dL (3.5-5.0); Albumin Globulin Ratio 1.2 (1.0-2.8); Alkaline Phosphatase 104 U/L (38-126); Aspartate Aminotransferase 22 IU/L (14-36); BUN Creatinine Ratio 8.6 (6-22); Bilirubin Total 0.3 mg/dL (0.2-1.3); Blood Urea Nitrogen 6 mg/dL (7-17); Calcium 8.5 mg/dL (8.4-10.2); Carbon Dioxide 22 mmol/L (22-32); Chloride 106 mmol/L (98-107); Estimated Glomerular Filt Rate > 60.0 mL/min (>60); Globulin 3.5 g/dL (1.7-4.1); Glucose 115 mg/dL (70-100); HEMOLYSIS < 15 (0-50); Potassium 3.4 mmol/L (3.4-5.1); Sodium 137 mmol/L (137-145); Total Protein 7.6 g/dL (6.3-8.2)
[2019-03-13 19:15] LABS: HCG Quantitative /Beta subunit 2275.2 mIU/mL
[2019-03-13 19:22] VITALS: BP 129/89; PULSE 90; RESP 16; O2SAT 100
== END 2019-03-13 19:48 | disposition home or self-care (01) ==
PROVIDERS: Emergency Medicine; Emergency Provider Emergency Medicine
DX: O20.9 Hemorrhage in early pregnancy, unspecified (principal); N39.0 Urinary tract infection, site not specified; Z3A.13 13 weeks gestation of pregnancy
CPT/HCPCS: 36415; 76801; 76830; 80053; 81003; 81015; 81025; 84702; 85025; 86900; 86901; 87086; 99282; 99284

== ENCOUNTER → 2019-03-28 15:30 | Outpatient (ROUT) | payer MEDICAID, OTHER, SELFPAY ==
[2019-03-28 17:27] LABS: Urine N gonorrhoeae NOT DETECTED
[2019-03-28 17:29] LABS: Urine Chlamydia NOT DETECTED
== END ==
DX: Z11.3 Encounter for screening for infections with a predominantly sexual mode of transmission (principal)
CPT/HCPCS: 87491; 87591

== ENCOUNTER 2019-04-11 09:29 | Day surgery (SDC) | payer MEDICAID, OTHER, SELFPAY ==
[2019-04-06 15:07] VITALS: BMI 23.2
[2019-04-11] VITALS (9 sets, daily range): BP systolic 112–151; BP diastolic 75–93; PULSE 57–90; RESP 10–24; TEMP 36.1–36.6; O2SAT 97–100; BMI 22.7
--- NOTE | 2019-04-11 | PATH_ITS ---
[facility] Accession Number: [id number] . 01 Material submitted: . product of conception - PRODUCTS OF CONCEPTION . 02 Diagnosis: Products Of Conception, Removal: Chorionic villi, consistent with products of conception. [facility] 04/13/2019 1250 Local . 02 Electronically signed: . Ptaricia Ray MD, Pathologist NPI- [id number] . 01 Gross description: . The specimen is received in a formalin-filled container labeled products of conception and consists of multiple red hemorrhagic soft tissue fragments admixed with blood clot, 8.5 x 7.0 x 2.1 cm in aggregate. Sectioning reveals a 3.1 x 2.4 x 1.5 cm fragment of gestational sac with adherent chorionic villi. The sac linings are smooth and unremarkable, however, an umbilical cord or part is not grossly identified. Sectioning of the remaining specimen reveals hemorrhagic grossly unremarkable cut surfaces without parts identified. Protective Services Officer sections including gestational sac and chorionic villi are submitted in A1. ([id number]) /[facility] 04/12/2019 1653 Local . 02 Pathologist provided ICD-10: O02.1 . 02 CPT . 929292 Performed at: 01 [facility] [address], [place], [place] [id number] MD Harris Valverde MD Phone: [phone] Performed at: 02 [facility] [address] [place], [place] [id number] MD Patricia Ray MD Phone: [phone]
--- NOTE | 2019-04-11 12:01 | PM.HP.1 ---
History of Present Illness History of Present Illness Date Patient Seen: 04/11/19 Time Patient Seen: 12:01 Chief complaint: 91349 Narrative: Patient is a 38-year-old 3 para 2 with a blighted ovum Patient History Medical History (Updated 03/28/19 @ 12:52 by Toi Ann MD) Asthma (Chronic) Surgical History (Updated 03/18/18 @ 20:51 by Susan Muhammad MD) History of cholecystectomy (Inactive) Family & Social History Family History (Updated 03/24/19 @ 16:46 by Sera Gooden RN) Father Diabetes mellitus Hypertension Social History: household members spouse Tobacco & Substance use: Smoking Status Never smoker alcohol intake frequency other Substance Use Type does not use Meds Home Medications and Allergies Home Medications Medication Instructions Recorded Confirmed Type Mynatal 1 cap PO DAILY #0 09/08/16 04/06/19 History Allergies Allergy/AdvReac Type Severity Reaction Status Date / Time codeine Allergy Intermediate HIVES Verified 04/11/19 10:18 Exam Vital Signs (past 8 hours): - 04/11/19 09:56 Temperature 97.6 F Pulse Rate 62 Respiratory Rate 16 Blood Pressure 132/85 Pulse Oximetry 98 Oxygen Delivery Method Room Air Narrative Exam Narrative: HEENT: No thyromegaly, no anterior cervical or supraclavicular lymphadenopathy. Lungs:Clear to auscultation bilaterally, no wheezes. Cardiovascular: Regular rate and rhythm, no murmurs, rubs, or gallops. Abdomen: Well-healed laparoscopy scars. No hepatosplenomegaly. No masses palpable. External genitalia: Normal Vagina: Normal Cervix: Normal Bimanual exam: 7 Week size uterus. Mobile. Rectal: No masses. Assessment & Plan Assessment & Plan narrative: Assessment: 38-year-old 3 para 2 with a blighted ovum Plan: Suction D&C The risks, benefits, and alternatives to the procedure were explained to the patient. The risks including bleeding, infection, and uterine perforation. She understands these risks and agrees to proceed. A full par Q was held and consent form was signed. Time Spent With Patient Time with patient: 15-24 minutes
--- NOTE | 2019-04-11 12:02 | PM.PREOP ---
Pre-operative Note Interval Note History & Physical reviewed/Exam performed by Physician: Yes Changes to H&P: No
--- NOTE | 2019-04-11 12:29 | SUR.OPER ---
Lithotomy on padded OR bed, head on pillow, arms secured on padded arm boards at <90 degrees abduction. Legs secured in padded yellow fins stirrups.
[2019-04-11] MEDS: fentaNYL 100 MCG/2 ML INJ IV (13:03)
[2019-04-11] MEDS: OXYCODONE/ACETAMINOPHEN 5/325 TABLET 1 TAB PO (13:51)
--- NOTE | 2019-04-11 19:05 | SUR.PHASEII ---
1355 Pt ambulated to the bathroom x2.
--- NOTE | 2019-04-25 07:50 | PM.GYNOP.1 ---
Operative Date/Time/Diagnoses Date of procedure: 04/11/19 Time of procedure: 12:45 Pre-op diagnosis: Blighted ovum Post-op diagnosis: same Procedure & Clinicians Procedure: Procedures Operation Date: 04/11/19 11:15 Actual Procedures Side Surgeon p Dilation and Curettage suction Nettie Whitley MD Indications: Blighted ovum Surgeon: Nettie Whitley Anesthesia Type: General (LMA) Operative Notes Findings: Seven week size anteverted uterus Large amount of fluid in blood Closure Type: not applicable Specimen(s): other (Products of conception) Estimated blood loss (mL): 75 Blood products transfused: none Procedure in detail: After informed consent was obtained, the patient was taken to the operating room where she was placed in the dorsal supine position. After adequate LMA general anesthesia was achieved, she was placed in the dorsal lithotomy position, and prepped and draped in the usual sterile fashion. A time-out was performed. A bivalve speculum was placed into the vagina and the anterior lip of the cervix was grasped with a single-tooth tenaculum. The cervix was dilated to the # 7 Hegar dilator. The # 7 curved plastic curette passed easily into the endometrial cavity. Several passes with suction revealed fluid and blood. There was small amount of tissue. Several more passes with suction revealed blood only. Gentle sharp curettage was performed yielding a small amount of blood. The instruments were removed from the uterus. Single-tooth tenaculum was removed from the anterior lip of the cervix. The bivalve speculum was removed from the vagina. Sponge, lap, and instrument counts were correct x2. The patient tolerated the procedure well, and was taken to PACU in stable condition. Complications: none Post-operative Condition: stable Disposition: PACU Plan for aftercare: Home after recovery
== END 2019-04-11 14:06 | disposition home or self-care (01) ==
PROVIDERS: Visit Provider Obstetrics & Gynecology
PROC: (CPT 58120; principal; 2019-04-11 11:15)
DX: O02.1 Missed abortion (principal); J45.909 Unspecified asthma, uncomplicated
CPT/HCPCS: 59820; 94762; J1100; J1885; J2250; J2405; J2704; J3010

== ENCOUNTER → 2019-08-25 11:14 | Outpatient (CLI) | payer MEDICAID, OTHER, SELFPAY ==
[2019-08-25 13:30] LABS: Urine N gonorrhoeae NOT DETECTED
[2019-08-25 13:32] LABS: Urine Chlamydia NOT DETECTED
== END ==
DX: Z11.3 Encounter for screening for infections with a predominantly sexual mode of transmission (principal)
CPT/HCPCS: 87491; 87591

== ENCOUNTER → 2019-09-28 15:09 | Outpatient (CLI) | payer MEDICAID, OTHER, SELFPAY ==
[2019-09-28 17:00] LABS: HCG Quantitative /Beta subunit 674.4 mIU/mL
== END ==
DX: O03.9 Complete or unspecified spontaneous abortion without complication (principal)
CPT/HCPCS: 36415; 84702

== ENCOUNTER → 2019-10-17 14:14 | Outpatient (CLI) | payer MEDICAID, OTHER, SELFPAY ==
[2019-10-17 15:15] LABS: HCG Quantitative /Beta subunit 157.1 mIU/mL
== END ==
DX: O02.1 Missed abortion (principal)
CPT/HCPCS: 36415; 84702

== ENCOUNTER 2019-12-11 01:57 | Emergency (ER) | payer MEDICAID, OTHER, SELFPAY ==
[2019-12-11 02:05] VITALS: BP 170/102; PULSE 92; RESP 20; TEMP 36.2; O2SAT 98; BMI 27.3
--- NOTE | 2019-12-11 02:15 | ED.GENADULT ---
HPI - General Adult General Chief complaint: Abdominal Pain Stated complaint: stomach pain/bleeding Time Seen by Provider: 12/11/19 02:00 Source: patient Mode of arrival: Ambulatory Limitations: no limitations History of Present Illness HPI narrative: 39-year-old female here for evaluation of lower abdominal discomfort. She states that a couple days ago she started having some mild discomfort. Also notice vaginal bleeding with urination only. She did where he had stated that she was not having any vaginal bleeding when she was not urinating. Denies any change in bowel habits. States that his August she had a spontaneous . This was medically managed. No instrumentation was performed. She also had a spontaneous at the end of last year. She has not had a menstrual cycle since this in August. She is not currently on control. No prior abdominal surgeries. Has not tried anything for symptoms prior to arrival. States that last evening the pain became worse. It is left greater than right. She also had some more bright red blood with urination. Related Data Home Medications Medication Instructions Recorded Confirmed Mynatal 1 cap PO DAILY #0 09/08/16 08/25/19 Allergies Allergy/AdvReac Type Severity Reaction Status Date / Time codeine Allergy Intermediate HIVES Verified 12/11/19 02:11 Review of Systems Constitutional Constitutional: Denies fatigue and Denies fever(s) Cardiovascular Cardiovascular: Denies chest pain and Denies dyspnea Respiratory Respiratory: Denies dyspnea Gastrointestinal Gastrointestinal: Reports abdominal pain, Denies change in bowel habits, Denies nausea and Denies vomiting Genitourinary Genitourinary: Denies change in libido, Denies dysuria and Denies dysuria Genitourinary: Denies change in libido, Denies difficulty voiding, Denies dysuria, Denies dysuria, Reports pelvic pain, Reports vaginal discharge (Blood with urination) and Denies vaginal odor Musculoskeletal Musculoskeletal: Denies arthralgias and Denies myalgias Integumentary/Breasts Skin/Breast: Denies rash Neurologic Neurologic: Denies behavioral changes Psychiatric Psychiatric: Denies behavioral changes and Denies change in libido Endocrine Endocrine: Denies change in libido and Denies fatigue Hematologic/Lymphatic Hematologic/Lymphatic: Denies easy bleeding and Denies easy bruising Allergic/Immunologic Allergic/Immunologic: Denies urticaria Patient History Medical History AMA (advanced maternal age) multigravida 35+ (Acute) Asthma (Chronic) (Inactive) (spontaneous vaginal delivery) (Acute) Surgical History (Updated 08/24/19 @ 14:48 by Elham Davidson RN) History of cholecystectomy (Inactive ~2010) S/P dilatation and curettage (Acute ~04/11/19) S/P rhinoplasty (Acute ~2006) [place] teeth removed (Acute) Family History (Updated 08/24/19 @ 14:51 by Elham Davidson RN) Father Diabetes mellitus Hypertension Mother Pancreatic cancer Grandfather Hypertension Diabetes mellitus S/P triple vessel bypass Grandmother Cancer Grandfather No problems noted. Grandmother No problems noted. Social History marital status: household members: spouse and children education level: high school (10th Grade) occupational status: unemployed current occupational exposures/hazards: No special constantine needs: No Smoking Status: Never smoker substance use type: does not use Smoking Status: Never smoker alcohol intake frequency: other Substance Use Type: does not use Exam Initial Vital Signs Initial Vital Signs: Vital Signs Temperature 97.1 F L 12/11/19 02:05 Pulse Rate 92 H 12/11/19 02:05 Respiratory Rate 20 12/11/19 02:05 Blood Pressure 170/102 H 12/11/19 02:05 Pulse Oximetry 98 12/11/19 02:05 Const General: cooperative and comfortable Limitations: mental status not altered HENMT Head: normal to inspection and normocephalic Resp Effort & Inspection: normal respiratory effort Cardio Rate: regular rate GI Inspection: non-distended Palpation: soft, No firm and tender (Lower abdomen) Back/Spine/Pelvis Back: No CVA tenderness Skin Lesions: no lesions Rashes: no rashes Neuro General: patient alert and patient awake Cognition: normal cognition Speech: speech normal Extrem General: normal to inspection and capillary refill normal Psych Appearance: grossly normal and well kempt Scores GCS Richie coma scale eye opening: Spontaneous Richie coma scale verbal response: Orientated Richie coma scale motor response: Obey commands Richie coma scale total score: 15 Course Orders Ordered: ED Orders 12/11/19 02:03 Urine Culture Stat Urine Microscopic Stat 12/11/19 02:25 US pelvic complete Stat 12/11/19 02:40 Complete Blood Count AUTO DIFF Stat Comprehensive Metabolic Panel Stat Lipase Stat Discontinued Medications Morphine Sulfate (Morphine) 4 mg IV NOW ONE Stop: 12/11/19 02:16 Last Admin: 12/11/19 02:46 Dose: 4 mg Documented by: [email or web address] Vital Signs Vital signs: Vital Signs - 8 hr 12/11/19 02:05 12/11/19 02:48 12/11/19 03:33 Temperature 97.1 F L Pulse Rate 92 H 85 66 Respiratory Rate 20 24 16 Blood Pressure 170/102 H 143/108 H 134/83 Pulse Oximetry 98 99 99 Medical Decision Making Lab Data Lab results reviewed: Yes I reviewed the patient's lab results. Result diagrams: 12/11/19 02:40 12/11/19 02:40 Labs: Lab Results 12/11/19 12/11/19 12/11/19 Range/Units 02:03 02:40 02:40 WBC 10.5 (4.5-11.0) X10^3/uL RBC 4.51 (4.0-5.2) X10^6/uL Hgb 13.0 (12.0-16.0) g/dL Hct 39.4 (36-46) % MCV 87.2 (80-100) fL MCH 28.8 (26-34) PG MCHC 33.0 (30-36) % RDW 13.8 (11.6-14.8) % Plt Count 363 (150-400) X10^3/uL Neut % (Auto) 65.6 (50-75) % Lymph % (Auto) 20.4 L (25-40) % [place] % (Auto) 5.0 (3-14) % Eos % (Auto) 7.5 H (2-4) % Baso % (Auto) 1.5 (0-2) % Neut # (Auto) 6900 (1707-3438) /uL Lymph # (Auto) 2100 (4266-6117) /uL [place] # (Auto) 500 (0-900) /uL Eos # (Auto) 800 H (0-450) /uL Baso # (Auto) 200 H (0-100) /uL Sodium 137 (137-145) mmol/L Potassium 3.7 (3.4-5.1) mmol/L Chloride 109 H (98-107) mmol/L Carbon Dioxide 21 L (22-32) mmol/L BUN 6 L (7-17) mg/dL Creatinine 0.68 (0.52-1.04) mg/dL Estimated GFR > 60.0 (>60) mL/min BUN/Creatinine Ratio 8.8 (6-22) Glucose 110 H (70-100) mg/dL Calcium 8.9 (8.4-10.2) mg/dL Total Bilirubin 0.5 (0.2-1.3) mg/dL AST 28 (14-36) IU/L ALT 20 (<35) IU/L Alkaline Phosphatase 110 (38-126) U/L Total Protein 7.5 (6.3-8.2) g/dL Albumin 4.3 (3.5-5.0) g/dL Globulin 3.2 (1.7-4.1) g/dL Albumin/Globulin Ratio 1.3 (1.0-2.8) Lipase 94 (23-300) U/L Urine RBC 0-1/hpf (0-5/HPF) Urine WBC 0-1/hpf (0-5/HPF) Ur Squamous Epith Cells 0-1 /hpf (0-5/HPF) Urine Bacteria Occasional (0-1) (None) Ur Culture Indicated? Specimen cultured Point of Care Testing Test Results Negative Urine Dip Bedside Urine Glucose Negative Bedside Urine Bilirubin - Negative Bedside Urine Ketone - Negative Urine Specific [place] 1.005 Bedside Urine Occult Blood +++ Bedside Urine pH 7.0 Bedside Urine Protein - Negative Bedside Urine Urobilinogen +/- 1mg Bedside Urine Nitrite - Negative Bedside Urine Leukocytes +/- 15 Esterase Point of care testing: Point of Care Testing Test Results Negative Urine Dip Bedside Urine Glucose Negative Bedside Urine Bilirubin - Negative Bedside Urine Ketone - Negative Urine Specific [place] 1.005 Bedside Urine Occult Blood +++ Bedside Urine pH 7.0 Bedside Urine Protein - Negative Bedside Urine Urobilinogen +/- 1mg Bedside Urine Nitrite - Negative Bedside Urine Leukocytes +/- 15 Esterase Imaging Data US - SUGARCANE RESEARCH TECHNICIAN: Radiologist's Impression: Large amount of mildly complex fluid in the endometrial cavity/cervical canal. 3.6 cm complex cyst left ovary. Close follow-up recommended to surgical intervention is not being clinically considered at this time. MDM Narrative Medical decision making narrative: -given her clinical presentation and the abdominal exam and the CT report and the lack of vaginal bleeding except for when urinating that we can hold on a pelvic exam for now. Patient is low suspicion for STI. Patient states she is not having any vaginal bleeding except when she urinates. She states that when she does urinate the blood is coming from her vagina and not from her urine. The ultrasound shows complex fluid in the uterus/cervical canal. She also has a left-sided ovary. I do suspect that this is what is causing the patient's lower abdominal pain which she describes as a cramping sensation. There is blood flow to the left ovary. Low suspicion for ovarian torsion. I did discuss the case with Dr. jean who was the putty mixer on-call. Given the patient's vital signs/labs/clinical presentation feel that a D&C is not currently indicated. I did discuss potentially putting the patient on a control taper however the patient declined this. Will send home with symptom control. She was given strict return precautions with regard to bleeding that could potentially happen over the next couple hours/days. Patient will contact Dr. jean office on Thursday for follow-up. I feel given the findings today on the ultrasound that we can hold on a CT scan for now. I did consider other intra-abdominal causes of her discomfort however feel that is most likely related to the findings of the ultrasound this evening. Discharge Plan Departure Patient Disposition: Home Clinical Impression: Abdominal pain Qualifiers: Abdominal location: unspecified location Qualified Code(s): R10.9 - Unspecified abdominal pain Ovarian cyst Qualifiers: Laterality: left Qualified Code(s): N83.202 - Unspecified ovarian cyst, left side Instructions: DI for Ovarian Cyst, DI for Abnormal Uterine Bleeding Activity Restrictions/Additional Instructions: I do recommend on Thursday you contact the [facility] at [phone] to schedule a follow-up with Dr. jean. Do not be surprised if you start to have vaginal bleeding over the next several hours/days. This could potentially be fairly significant given the fact that she has not had a menstrual cycle since your miscarriage several months ago. If you have bleeding of more than 2-3 pads an hour for 2-3 hours in a row please return to the emergency department for further evaluation. If your abdominal pain worsens please return. If you develop any other new symptoms please return. Take the medications as directed. Prescriptions: No Action Mynatal 1 EACH capsule 1 cap PO DAILY Qty: 0 RF: 0
--- NOTE | 2019-12-11 02:25 | DI.US.S_ITS ---
PROCEDURE: US PELVIC COMPLETE INDICATIONS: Lower abdominal pain, vaginal bleeding, eval ovaries TECHNIQUE: Real-time scanning was performed of the pelvic organs, with image documentation. Additional endovaginal scanning was necessary due to incomplete visualization of the adnexal and endometrial structures by transabdominal scanning. COMPARISON: [facility], , US OB <= 14 WEEKS FETUS, 03/13/2019, 18:24. [facility], , US OB <= 14 WEEKS FETUS, 03/28/2019, 12:49. [facility], [place], US OB <= 14 WEEKS FETUS, 04/04/2019, 10:34. [facility], [place], US OB <= 14 WEEKS FETUS, 08/25/2019, 11:00. [facility], , US OB <= 14 WEEKS FETUS, 09/19/2019, 13:05. FINDINGS: Transabdominal scanning: Limited scanning through the kidneys shows no hydronephrosis. No pathologic free abdominal or pelvic fluid. Endovaginal scanning: Uterus: The uterus is normal in size and measures 8.1 x 4.9 x 4.8 centimetres. No focal myometrial abnormality is identified. A large amount of fluid is identified contained within the endometrial cavity that measures up to 1.6 centimeters in thickness and is 6.2 centimetres in length. This fluid extends into the region of the cervix to the level of the external cervical os. Fluid is noted to be present within the vagina. Heterogeneous echotexture is evident along the periphery of this fluid collection involving the endometrial tissues. There may be debris contained within the endometrial cavity. No intrauterine is evident. Ovaries: The right ovary measures 1.5 x 3.3 x 2.2 centimeters. The left ovary measures 4.6 x 3.7 x 4.0 centimeters. The right ovary is normal in size. The left ovary is enlarged related to a 3.6 x 3.2 x 4.6 centimeter left ovarian cyst that contains a single peripheral nodule and at least 1 thin septation. IMPRESSION: 1. No intrauterine or extrauterine is evident. 2. Prominent endometrial heterogeneity with a large amount of fluid contained within the uterine cavity and endocervical canal may be related to a spontaneous and clinical correlation is recommended. Superimposed hemorrhage or infection cannot be excluded. But considered to be unlikely, the possibility of a neoplastic process cannot be excluded and follow-up imaging is recommended. 3. Mildly complex left ovarian cyst. A follow-up pelvic ultrasound in 2 months is recommended to re-evaluate this structure. Note: The preliminary report provided by [facility] is concordant with the final report. Dictated by: Paco Hale M.D. on 12/11/2019 at 6:38 Approved by: Paco Hale M.D. on 12/11/2019 at 6:44
[2019-12-11 02:34] LABS: RBC Urine 0-1/HPF (0-5/HPF); WBC Urine 0-1/HPF (0-5/HPF)
[2019-12-11 02:35] LABS: Bacteria Urine Occasional (0-1); Culture Indicated Urine Specimen Cultured; Squamous Epithelial Cell Urine 0-1 /HPF (0-5/HPF)
[2019-12-11] MEDS: MORPHINE 4 MG/ML INJ IV (02:46)
[2019-12-11 02:48] VITALS: BP 143/108; PULSE 85; RESP 24; O2SAT 99
[2019-12-11 02:51] LABS: Add Manual Diff / Slide Review NO; Basophils Absolute Auto 200 /uL (0-100); Basophils Percent Auto 1.5 % (0-2); Eosinophils Absolute Auto 800 /uL (0-450); Eosinophils Percent Auto 7.5 % (2-4); Hematocrit 39.4 % (36-46); Lymphocytes Absolute Auto 2100 /uL (1100-4500); Lymphocytes Percent Auto 20.4 % (25-40); Mean Corpuscular Hemoglobin 28.8 PG (26-34); Mean Corpuscular Volume 87.2 fL (80-100); Monocytes Absolute Auto 500 /uL (0-900); Neutrophils Absolute Auto 6900 /uL (1500-7000); Neutrophils Percent Auto 65.6 % (50-75); Platelet Count 363 X10^3/uL (150-400); Red Blood Cell Count 4.51 X10^6/uL (4.0-5.2); Red Cell Distribution Width 13.8 % (11.6-14.8); White Blood Cell Count 10.5 X10^3/uL (4.5-11.0)
[2019-12-11 03:01] LABS: Alanine Aminotransferase 20 IU/L (<35); Albumin 4.3 g/dL (3.5-5.0); Albumin Globulin Ratio 1.3 (1.0-2.8); Alkaline Phosphatase 110 U/L (38-126); Aspartate Aminotransferase 28 IU/L (14-36); BUN Creatinine Ratio 8.8 (6-22); Bilirubin Total 0.5 mg/dL (0.2-1.3); Blood Urea Nitrogen 6 mg/dL (7-17); Calcium 8.9 mg/dL (8.4-10.2); Carbon Dioxide 21 mmol/L (22-32); Chloride 109 mmol/L (98-107); Estimated Glomerular Filt Rate > 60.0 mL/min (>60); Globulin 3.2 g/dL (1.7-4.1); Glucose 110 mg/dL (70-100); HEMOLYSIS < 15 (0-50); Lipase 94 U/L (23-300); Potassium 3.7 mmol/L (3.4-5.1); Sodium 137 mmol/L (137-145); Total Protein 7.5 g/dL (6.3-8.2)
[2019-12-11 03:33] VITALS: BP 134/83; PULSE 66; RESP 16; O2SAT 99
[2019-12-11 04:40] VITALS: BP 135/90; PULSE 64; RESP 17; O2SAT 99
[2019-12-11] MEDS: TRAMADOL 50 MG PREPACK 1 BOTTLE MISC (04:45)
[2019-12-11] MEDS: KETOROLAC 60 MG/2 ML VIAL 30 MG IV (04:46)
== END 2019-12-11 04:55 | disposition home or self-care (01) ==
PROVIDERS: Emergency Provider Emergency Medicine
DX: N83.202 Unspecified ovarian cyst, left side (principal); R31.9 Hematuria, unspecified; R10.9 Unspecified abdominal pain
CPT/HCPCS: 36415; 76830; 76856; 80053; 81003; 81015; 81025; 83690; 85025; 87086; 96374; 96375; 99284; J1885; J2270

== ENCOUNTER 2020-01-11 21:04 | Emergency (ER) | payer MEDICAID, OTHER, SELFPAY ==
[2020-01-11 21:10] VITALS: BP 148/94; PULSE 95; RESP 15; TEMP 36.8; O2SAT 96; BMI 25.4
--- NOTE | 2020-01-11 22:50 | ED.DIZZY ---
HPI - Dizziness General Chief Complaint: Dizziness Stated Complaint: dizzy after ear surgery Time Seen by Provider: 01/11/20 21:15 Source: patient Mode of arrival: Ambulatory Limitations: no limitations History of Present Illness HPI Narrative: 39F non smoker with history of chronic ear problems and hearing loss presents with dizziness, nausea and vomiting over the past day or two. She just had a left mastoidectomy at [facility] a few days ago. She has had no headache or blurred vision. She denies any trouble with speech. She denies any fever, chills nor chest pain or shortness of breath. She is admittedly quite anxious and states she is very concerned about having caught COVID while at [facility] complaint: dizziness Onset (ago): day(s) Timing: unsure Description: sense of movement History of similar episodes: Yes History of trauma: No Severity: moderate Relieving factors: rest Exacerbating factors: movement Associated symptoms: nausea and vomiting Related Data Home Medications Medication Instructions Recorded Confirmed Mynatal 1 cap PO DAILY #0 09/08/16 08/25/19 Previous Rx's Medication Instructions Recorded meclizine 25 mg PO TID PRN #10 tab 01/12/20 Allergies Allergy/AdvReac Type Severity Reaction Status Date / Time codeine Allergy Intermediate HIVES Verified 12/11/19 02:11 Review of Systems Constitutional Constitutional: Denies chills, Denies fatigue, Denies fever(s), Denies frequent falls, Denies lethargy and Denies weakness Eyes Eyes: Denies change in vision, Denies eye discharge, Denies irritation and Denies loss of vision ENT Ears, Nose, Mouth, and Throat: Denies change in voice, Reports vertigo, Denies dizziness, Denies neck pain, Denies sore throat and Denies throat swelling Cardiovascular Cardiovascular: Denies chest pain, Denies irregular heart rhythm, Denies lightheadedness, Denies palpitations, Denies dyspnea, Denies dyspnea on exertion and Denies orthopnea Respiratory Respiratory: Denies cough, Denies dyspnea, Denies dyspnea on exertion and Denies wheezing Gastrointestinal Gastrointestinal: Denies abdominal pain, Denies change in bowel habits, Denies diarrhea, Denies nausea and Denies vomiting Musculoskeletal Musculoskeletal: Denies neck pain and Denies numbness Integumentary/Breasts Skin/Breast: Denies pruritus, Denies erythema, Denies rash and Denies wounds Neurologic Neurologic: Denies behavioral changes, Denies confusion, Reports vertigo, Denies dizziness, Denies frequent falls, Denies loss of vision, Denies numbness and Denies weakness Psychiatric Psychiatric: Denies anxiety, Denies behavioral changes, Denies confusion, Denies depression, Denies homicidal ideation and Denies suicidal ideation Endocrine Endocrine: Denies fatigue, Denies flushing and Denies palpitations Hematologic/Lymphatic Hematologic/Lymphatic: Denies easy bruising Allergic/Immunologic Allergic/Immunologic: Denies urticaria, Denies throat swelling and Denies wheezing Patient History Medical History AMA (advanced maternal age) multigravida 35+ (Acute) Asthma (Chronic) (Inactive) (spontaneous vaginal delivery) (Acute) Surgical History History of cholecystectomy (Inactive ~2010) S/P dilatation and curettage (Acute ~04/11/19) S/P rhinoplasty (Acute ~2006) [place] teeth removed (Acute) Family History Father Diabetes mellitus Hypertension Mother Pancreatic cancer Grandfather Hypertension Diabetes mellitus S/P triple vessel bypass Grandmother Cancer Grandfather No problems noted. Grandmother No problems noted. Social History marital status: household members: spouse and children education level: high school (10th Grade) occupational status: unemployed current occupational exposures/hazards: No special constantine needs: No Smoking Status: Never smoker substance use type: does not use Smoking Status: Never smoker alcohol intake frequency: other Substance Use Type: does not use Exam Narrative Exam Narrative: GEN: AOx3 and in mild distress EYES: Pupils are equal, round, and reactive to light and accommodation. Extraoccular muscles are intact bilaterally. There is no subconjunctival hemorrhage or exudate. ENT: R TM with tube in place. L TM obscured by cerumen. CHEST: Lungs are clear to auscultation bilaterally and free of wheezes, rales, or rhonchi. Heart rate is regular rhythm, there are no murmurs, clicks, rubs, or gallops. There is no chest wall tenderness. ABD: Abdomen is soft and nontender. There is no guarding or rebound. Bowel sounds are normal in all 4 quadrants. There is no mass or organomegaly. EXT: Full painless ROM of all extremities with no loss of sensation or strength. SKIN: Warm, pink, and dry. No erythema or rash Initial Vital Signs Initial Vital Signs: Vital Signs Temperature 98.3 F 01/11/20 21:10 Pulse Rate 95 H 01/11/20 21:10 Respiratory Rate 15 01/11/20 21:10 Blood Pressure 148/94 H 01/11/20 21:10 Pulse Oximetry 96 01/11/20 21:10 Course Orders Ordered: Discontinued Medications Meclizine HCl (Antivert) 50 mg PO NOW ONE Stop: 01/11/20 22:47 Last Admin: 01/12/20 00:15 Dose: 50 mg Documented by: JOB Ondansetron HCl (Zofran Odt Prepack) 1 bottle MISC SEEINSTR ONE Stop: 01/11/20 22:47 Last Admin: 01/12/20 00:15 Dose: 1 bottle Documented by: JOB Vital Signs Vital signs: Vital Signs - 8 hr 01/12/20 00:52 Pulse Rate 78 Respiratory Rate 15 Blood Pressure 152/106 H Pulse Oximetry 98 MDM - Dizziness MDM Narrative Medical decision making narrative: patient much better after above stated therapies. No longer dizzy. No vomiting. She has an appointment later today. She's given return precautions. Discharge Plan Departure Patient Disposition: Home Clinical Impression: Dizziness, Vertigo Vomiting Qualifiers: Vomiting type: unspecified Vomiting Intractability: non-intractable Nausea presence: with nausea Qualified Code(s): R11.2 - Nausea with vomiting, unspecified Discharge Date/Time: 01/12/20 00:53 Instructions: DI for Vertigo, Nausea and Vomiting-Adult Activity Restrictions/Additional Instructions: There is no evidence of an emergent or life threatening illness at this time, but follow up with your doctor later today is recommended nonetheless to continue to rule out serious underlying causes of your symptoms. Please call the office for an appointment. Please return to the Emergency Department for any worsening or persistent symptoms. Please take medications as directed. Prescriptions: New meclizine 25 mg tablet 25 mg PO TID PRN (Reason: dizziness) Qty: 10 RF: 0 No Action Mynatal 1 EACH capsule 1 cap PO DAILY Qty: 0 RF: 0
[2020-01-12] MEDS: MECLIZINE HCL 12.5 MG TABLET 50 MG PO (00:15)
[2020-01-12] MEDS: ONDANSETRON 4 MG ODT PREPACK 1 BOTTLE MISC (00:15)
[2020-01-12 00:52] VITALS: BP 152/106; PULSE 78; RESP 15; O2SAT 98
--- NOTE | 2020-01-12 12:10 | PC.NURSE ---
Pt on phone, [facility] pharmacy does not have meclizine in stock. Requests prescription be called in to [facility]. With authorization from Dr Christa RN complies.
[2020-01-13 21:10] LABS: COVID19 Sendout Not Detected (Not Detect)
== END 2020-01-12 00:53 | disposition home or self-care (01) ==
PROVIDERS: Emergency Provider Emergency Medicine
DX: R42 Dizziness and giddiness (principal); R11.2 Nausea with vomiting, unspecified; Z98.890 Other specified postprocedural states
CPT/HCPCS: 87635; 99283

== ENCOUNTER 2020-01-14 06:53 | Emergency (ER) | payer MEDICAID, OTHER, SELFPAY ==
[2020-01-14 07:04] VITALS: BP 170/97; PULSE 108; RESP 20; TEMP 36.8; O2SAT 99; BMI 25.4
[2020-01-14 07:26] VITALS: PULSE 86; O2SAT 98
--- NOTE | 2020-01-14 07:28 | PC.NURSE ---
Pt states she recently had ear procedure done which she cannot remember the name of. states after procedure she was having bouts of vertigo. came to ED to be seen. states she was covid testing and she was having anxiety regarding her results which were negative. appears well. warm to touch. NAD. denies breathing difficulty cough or SOB.
[2020-01-14 07:30] VITALS: PULSE 100; O2SAT 98
--- NOTE | 2020-01-14 07:42 | ED.FEVER ---
HPI - Fever General Chief Complaint: Fever Stated Complaint: Hot and cold flashes, doesn't feel well Time Seen by Provider: 01/14/20 07:08 Source: patient Mode of arrival: Ambulatory Limitations: no limitations History of Present Illness HPI Narrative: Patient is a 39-year-old female who presents with hot and cold flashes ongoing for the past few nights. She was actually seen and evaluated here 2 nights ago with dizziness and vertigo. She had a COVID-19 test at that time that was pending she has been quite anxious and nervous about it she has 5 children at home. She also recently had surgery on her left ear, to clean out some inflammation. But that appears to be healing and she does not have any complaints about that. She called earlier for her COVID-19 results but they were not in however they are in this morning and are negative. The nurse told her these results and she says she instantly feels better. She says she thinks she was making herself sick with worry. She kept getting hot and cold flashes no chest pain shortness of breath no painful or frequent urination no abdominal pain. She now overall feels 100% better. Associated symptoms: denies other symptoms Related Data Home Medications Medication Instructions Recorded Confirmed Mynatal 1 cap PO DAILY #0 09/08/16 08/25/19 Previous Rx's Medication Instructions Recorded meclizine 25 mg PO TID PRN #10 tab 01/12/20 Allergies Allergy/AdvReac Type Severity Reaction Status Date / Time codeine Allergy Intermediate HIVES Verified 12/11/19 02:11 Review of Systems Review of Systems Narrative: GENERAL: See HPI Denies chills, fatigue, malaise, fever, sweats, travel HEENT: Denies sinus pain, ear pain, sore throat, difficulty swallowing, neck pain RESPIRATORY: Denies dyspnea, cough, wheezing, hemoptysis, sputum. CARDIOVASCULAR: Denies chest pain, palpitations, orthopnea, edema GASTROINTESTINAL: Denies nausea, vomiting, abdominal pain, diarrhea, constipation, melena. : Denies dysuria, frequency, incontinence, hematuria, urinary retention, flank pain. MUSCULOSKELETAL: Denies weakness, joint pain, or bony pain SKIN: No rash, no erythema, no pruritus NEUROLOGIC: Denies weakness, dizziness, headache, numbness, change in speech, confusion PSYCHIATRIC: No concerning psychosocial issues. 12 point review of systems is negative except for those stated above and HPI Patient History Medical History AMA (advanced maternal age) multigravida 35+ (Acute) Asthma (Chronic) (Inactive) (spontaneous vaginal delivery) (Acute) Surgical History History of cholecystectomy (Inactive ~2010) S/P dilatation and curettage (Acute ~04/11/19) S/P rhinoplasty (Acute ~2006) [place] teeth removed (Acute) Family History Father Diabetes mellitus Hypertension Mother Pancreatic cancer Grandfather Hypertension Diabetes mellitus S/P triple vessel bypass Grandmother Cancer Grandfather No problems noted. Grandmother No problems noted. Social History marital status: household members: spouse and children education level: high school (10th Grade) occupational status: unemployed current occupational exposures/hazards: No special constantine needs: No Smoking Status: Never smoker substance use type: does not use Smoking Status: Never smoker alcohol intake frequency: other Substance Use Type: does not use Exam Initial Vital Signs Initial Vital Signs: Vital Signs Temperature 98.2 F 01/14/20 07:04 Pulse Rate 108 H 01/14/20 07:04 Respiratory Rate 20 01/14/20 07:04 Blood Pressure 170/97 H 01/14/20 07:04 Pulse Oximetry 99 01/14/20 07:04 GENERAL: Well-appearing, well-nourished and in no acute distress. HEENT: Head atraumatic,EOMI, pupils reactive, face symmetric, moist mucous membranes CARDIOVASCULAR: Regular rate and rhythm without murmurs, rubs or gallops. RESPIRATORY: Breath sounds equal bilaterally, no wheezes rales or rhonchi. ABDOMEN: Soft, nontender. Normoactive bowel sounds all 4 quadrants. No guarding or rebound. EXTREMITIES: Normal range of motion, no clubbing or edema. Neurovascularly intact NEUROLOGICAL: Alert and oriented x4.Normal gait and speech. Cranial nerves II through XII grossly intact. SKIN: Warm, dry, no laceration, no petechiae, no rashes or lesions. Course Orders Ordered: ED Orders 01/14/20 07:24 Basic Metabolic Panel Stat Complete Blood Count AUTO DIFF Stat Vital Signs Vital signs: Vital Signs - 8 hr 01/14/20 07:04 01/14/20 07:26 01/14/20 07:30 Temperature 98.2 F Pulse Rate 108 H 86 100 H Respiratory Rate 20 Blood Pressure 170/97 H Pulse Oximetry 99 98 98 01/14/20 08:00 Temperature Pulse Rate 82 Respiratory Rate Blood Pressure Pulse Oximetry 97 MDM - Fever Lab Data Result diagrams: 01/14/20 07:24 01/14/20 07:24 Labs: Lab Results 01/14/20 01/14/20 Range/Units 07:24 07:24 WBC 6.3 (4.5-11.0) X10^3/uL RBC 4.78 (4.0-5.2) X10^6/uL Hgb 13.9 (12.0-16.0) g/dL Hct 41.3 (36-46) % MCV 86.5 (80-100) fL MCH 29.1 (26-34) PG MCHC 33.7 (30-36) % RDW 14.2 (11.6-14.8) % Plt Count 394 (150-400) X10^3/uL Neut % (Auto) 64.3 (50-75) % Lymph % (Auto) 28.3 (25-40) % [place] % (Auto) 6.0 (3-14) % Eos % (Auto) 1.1 L (2-4) % Baso % (Auto) 0.3 (0-2) % Neut # (Auto) 4100 (6024-7622) /uL Lymph # (Auto) 1800 (3494-2304) /uL [place] # (Auto) 400 (0-900) /uL Eos # (Auto) 100 (0-450) /uL Baso # (Auto) 0 (0-100) /uL Sodium 137 (137-145) mmol/L Potassium 3.9 (3.4-5.1) mmol/L Chloride 107 (98-107) mmol/L Carbon Dioxide 21 L (22-32) mmol/L BUN 6 L (7-17) mg/dL Creatinine 0.70 (0.52-1.04) mg/dL Estimated GFR > 60.0 (>60) mL/min BUN/Creatinine Ratio 8.6 (6-22) Glucose 106 H (70-100) mg/dL Calcium 9.0 (8.4-10.2) mg/dL MDM Narrative Medical decision making narrative: Patient initially did not have blood work done with dizziness. Was complaining of sweats and chills but all her symptoms immediately resolved when she found results of COVID-19 test. Her basic blood work today is overall reassuring. She has no other infectious symptoms. At this time can be discharged home. Discharge Plan Departure Patient Disposition: Home Clinical Impression: Worried well Discharge Date/Time: 01/14/20 08:29 Instructions: DI for Fever (Symptom) -- Adult Activity Restrictions/Additional Instructions: *You have been diagnosed with no abnormality found in her blood work *What to do: The COVID-19 test is negative recommend that you continue to still wear mask and practice social distance same *Continue to take medications as directed *Follow up with your primary care provider in 2-3 days *Return to ER if you should have increased dizziness chest pain shortness of breath or any new, worsening or concerning symptoms Prescriptions: No Action Mynatal 1 EACH capsule 1 cap PO DAILY Qty: 0 RF: 0 meclizine 25 mg tablet 25 mg PO TID PRN (Reason: dizziness) Qty: 10 RF: 0 Referrals: [facility] [Outside]
[2020-01-14 07:47] LABS: Add Manual Diff / Slide Review NO; Basophils Absolute Auto 0 /uL (0-100); Basophils Percent Auto 0.3 % (0-2); Eosinophils Absolute Auto 100 /uL (0-450); Eosinophils Percent Auto 1.1 % (2-4); Hematocrit 41.3 % (36-46); Hemoglobin 13.9 g/dL (12.0-16.0); Lymphocytes Absolute Auto 1800 /uL (1100-4500); Lymphocytes Percent Auto 28.3 % (25-40); Mean Corpuscular HGB Conc 33.7 % (30-36); Mean Corpuscular Hemoglobin 29.1 PG (26-34); Mean Corpuscular Volume 86.5 fL (80-100); Monocytes Absolute Auto 400 /uL (0-900); Neutrophils Absolute Auto 4100 /uL (1500-7000); Neutrophils Percent Auto 64.3 % (50-75); Platelet Count 394 X10^3/uL (150-400); Red Blood Cell Count 4.78 X10^6/uL (4.0-5.2); Red Cell Distribution Width 14.2 % (11.6-14.8); White Blood Cell Count 6.3 X10^3/uL (4.5-11.0)
[2020-01-14 07:56] LABS: BUN Creatinine Ratio 8.6 (6-22); Blood Urea Nitrogen 6 mg/dL (7-17); Carbon Dioxide 21 mmol/L (22-32); Chloride 107 mmol/L (98-107); Estimated Glomerular Filt Rate > 60.0 mL/min (>60); Glucose 106 mg/dL (70-100); HEMOLYSIS 17 (0-50); Potassium 3.9 mmol/L (3.4-5.1); Sodium 137 mmol/L (137-145)
[2020-01-14 08:00] VITALS: PULSE 82; O2SAT 97
[2020-01-14 08:29] VITALS: BP 168/75; PULSE 84; RESP 16; O2SAT 97
== END 2020-01-14 08:29 | disposition home or self-care (01) ==
PROVIDERS: Emergency Provider Emergency Medicine
DX: R50.9 Fever, unspecified (principal)
CPT/HCPCS: 36415; 80048; 85025; 99283

== ENCOUNTER 2020-01-30 18:24 | Emergency (ER) | payer MEDICAID, OTHER, SELFPAY ==
[2020-01-30] VITALS (12 sets, daily range): BP systolic 160–191; BP diastolic 85–116; PULSE 85–112; RESP 20; TEMP 37.3; O2SAT 94–99
--- NOTE | 2020-01-30 19:01 | DI.CT.S_ITS ---
PROCEDURE: CT HEAD/BRAIN WO CON INDICATIONS: Left-sided weakness TECHNIQUE: Noncontrast 4.5 mm thick angled axial sections acquired from the foramen magnum to the vertex, with coronal and sagittal reformats. For radiation dose reduction, the following was used: automated exposure control, adjustment of mA and/or kV according to patient size. COMPARISON: [facility], CT, HEAD WITHOUT CONTRAST, 06/01/2010, 2:44. FINDINGS: Image quality: Excellent. CSF spaces: Basal cisterns are patent. No extra-axial fluid collections. Ventricles are normal in size and shape. Brain: No midline shift. No intracranial masses or hemorrhage. Joshua-white matter interface is normal. Skull and face: Calvarium and visualized facial bones are intact, without suspicious lesions. Sinuses: Visualized sinuses and mastoids are clear. IMPRESSION: No acute process. Dictated by: Ulysses Bhatt M.D. on 01/30/2020 at 19:40 Approved by: Ulysses Bhatt M.D. on 01/30/2020 at 19:40
--- NOTE | 2020-01-30 19:13 | ED_ITS ---
HPI - Neuro Symptoms/Deficit General Chief Complaint: Neuro Symptoms/Deficit Stated Complaint: Left side weakness, numbness Time Seen by Provider: 01/30/20 19:00 Source: patient and EMS Mode of arrival: EMS Limitations: no limitations History of Present Illness HPI Narrative: 39-year-old female who arrived by EMS for 2 days of tingling in her left hand and left elbow and along the outside of her left leg. She is also having some fullness in her left ear which he states was similar to what it felt like before she had a tympanoplasty on the left. Symptoms been going on for 2 days. She noticed it in her left hand when she was beading a couple days ago. She noticed that it was on the little finger side of her hand him moved up to her elbow. Has been off and on. Same with her left lower extremity. Has not tried anything for her symptoms prior to arrival On Anticoagulants: No Related Data Home Medications Medication Instructions Recorded Confirmed Mynatal 1 cap PO DAILY #0 09/08/16 08/25/19 Previous Rx's Medication Instructions Recorded meclizine 25 mg PO TID PRN #10 tab 01/12/20 Allergies Allergy/AdvReac Type Severity Reaction Status Date / Time codeine Allergy Intermediate HIVES Verified 01/30/20 18:27 Review of Systems Constitutional Constitutional: Denies fever(s) and Denies headache(s) Eyes Eyes: Denies change in vision ENT Ears, Nose, Mouth, and Throat: Denies vertigo, Denies dizziness, Denies facial pain, Denies headache(s), Denies disequilibrium, Denies sinus pressure and Denies sore throat Comments: Left ear fullness Cardiovascular Cardiovascular: Denies chest pain at rest, Denies rapid heart rate and Denies dyspnea Respiratory Respiratory: Denies dyspnea Gastrointestinal Gastrointestinal: Denies abdominal pain, Denies nausea and Denies vomiting Genitourinary Genitourinary: Denies dysuria Genitourinary: Denies dysuria Musculoskeletal Musculoskeletal: Denies arthralgias, Denies myalgias and Reports tingling Integumentary/Breasts Skin/Breast: Denies lesions and Denies rash Neurologic Neurologic: Denies behavioral changes, Denies confusion, Denies vertigo, Denies dizziness, Denies headache(s), Reports tingling and Denies disequilibrium Psychiatric Psychiatric: Denies behavioral changes and Denies confusion Hematologic/Lymphatic Hematologic/Lymphatic: Denies easy bleeding and Denies easy bruising Patient History Medical History AMA (advanced maternal age) multigravida 35+ (Acute) Asthma (Chronic) (Inactive) (spontaneous vaginal delivery) (Acute) Surgical History History of cholecystectomy (Inactive ~2010) S/P dilatation and curettage (Acute ~04/11/19) S/P rhinoplasty (Acute ~2006) [place] teeth removed (Acute) Family History Father Diabetes mellitus Hypertension Mother Pancreatic cancer Grandfather Hypertension Diabetes mellitus S/P triple vessel bypass Grandmother Cancer Grandfather No problems noted. Grandmother No problems noted. Social History marital status: household members: spouse and children education level: high school (10th Grade) occupational status: unemployed current occupational exposures/hazards: No special constantine needs: No Smoking Status: Never smoker substance use type: does not use Smoking Status: Never smoker alcohol intake frequency: other Substance Use Type: does not use Exam Initial Vital Signs Initial Vital Signs: Vital Signs Pulse Oximetry 99 01/30/20 18:33 Const General: cooperative and comfortable Limitations: mental status not altered HENMT Head: normal to inspection and normocephalic Ears: EAC's normal, mastoid abnormal and other (PE tube R ear. L TM S/O surgery ) Resp Effort & Inspection: normal respiratory effort Auscultation: clear to auscultation bilaterally Cardio Rate: regular rate Rhythm: regular rhythm GI Palpation: soft Skin Lesions: no lesions Rashes: no rashes Neuro General: patient alert, patient awake and patient oriented x3 Cognition: normal cognition Speech: speech normal Extrem General: normal to inspection and capillary refill normal Psych Appearance: grossly normal and well kempt Scores GCS Richie coma scale eye opening: Spontaneous Richie coma scale verbal response: Orientated Richie coma scale motor response: Obey commands [place] coma scale total score: 15 NIH Stroke Scale Level of Conciousness: Alert, keenly responsive Ask month/age: Answers both questions correctly. Open/close eyes, close hand: Performs both tasks correctly Best gaze horizontal: Normal Visual garcia: No visual loss Facial palsy: Normal symetrical movement Left arm drift: No drift for full 10 sec Right arm drift: No drift for full 10 sec Left leg drift: No drift for full 10 sec Right leg drift: No drift for full 10 sec Limb ataxia: Absent Sensory on face/arms/legs: Mild to moderate sensory loss, can tell touch Best language: No aphasia, normal Dysarthria: Normal Extinction or inattention: No abnormality Total NIH Stroke scale score: 1 Course Orders Ordered: ED Orders 01/30/20 19:01 CT head/brain wo con Stat 01/30/20 19:50 CMP [Comprehensive Metabolic Panel] Stat Complete Blood Count AUTO DIFF Stat Vital Signs Vital signs: Vital Signs - 8 hr 01/30/20 18:34 01/30/20 18:35 01/30/20 18:38 Temperature Pulse Rate 87 96 H 112 H Respiratory Rate Blood Pressure 160/101 H 162/108 H 162/108 H Pulse Oximetry 99 98 01/30/20 19:00 01/30/20 19:37 01/30/20 19:38 Temperature Pulse Rate 100 H 107 H 99 H Respiratory Rate Blood Pressure 180/107 H 191/116 H Pulse Oximetry 98 94 97 01/30/20 20:00 01/30/20 20:16 01/30/20 20:17 Temperature Pulse Rate 91 H 88 94 H Respiratory Rate Blood Pressure 167/99 H Pulse Oximetry 98 99 98 01/30/20 20:30 01/30/20 21:01 Temperature 99.1 F Pulse Rate 90 85 Respiratory Rate 20 Blood Pressure 166/110 H 162/85 H Pulse Oximetry 98 98 MDM - Neuro Symptoms/Deficit Lab Data Attestation: I reviewed the patient's lab results. Result diagrams: 01/30/20 19:50 01/30/20 19:50 Labs: Lab Results 01/30/20 01/30/20 Range/Units 19:50 19:50 WBC 9.1 (4.5-11.0) X10^3/uL RBC 4.61 (4.0-5.2) X10^6/uL Hgb 13.5 (12.0-16.0) g/dL Hct 40.0 (36-46) % MCV 86.7 (80-100) fL MCH 29.2 (26-34) PG MCHC 33.7 (30-36) % RDW 14.2 (11.6-14.8) % Plt Count 317 (150-400) X10^3/uL Neut % (Auto) 72.6 (50-75) % Lymph % (Auto) 20.0 L (25-40) % [place] % (Auto) 6.4 (3-14) % Eos % (Auto) 0.3 L (2-4) % Baso % (Auto) 0.7 (0-2) % Neut # (Auto) 6600 (6582-9278) /uL Lymph # (Auto) 1800 (1281-1389) /uL [place] # (Auto) 600 (0-900) /uL Eos # (Auto) 0 (0-450) /uL Baso # (Auto) 100 (0-100) /uL Sodium 137 (137-145) mmol/L Potassium 3.7 (3.4-5.1) mmol/L Chloride 108 H (98-107) mmol/L Carbon Dioxide 21 L (22-32) mmol/L BUN 6 L (7-17) mg/dL Creatinine 0.72 (0.52-1.04) mg/dL Estimated GFR > 60.0 (>60) mL/min BUN/Creatinine Ratio 8.3 (6-22) Glucose 112 H (70-100) mg/dL Calcium 8.8 (8.4-10.2) mg/dL Total Bilirubin 0.4 (0.2-1.3) mg/dL AST 21 (14-36) IU/L ALT 15 (<35) IU/L Alkaline Phosphatase 98 (38-126) U/L Total Protein 7.7 (6.3-8.2) g/dL Albumin 4.3 (3.5-5.0) g/dL Globulin 3.4 (1.7-4.1) g/dL Albumin/Globulin Ratio 1.3 (1.0-2.8) Urine Dip Bedside Urine Glucose Negative Bedside Urine Bilirubin - Negative Bedside Urine Ketone - Negative Urine Specific [place] 1.015 Bedside Urine Occult Blood + Bedside Urine pH 6.5 Bedside Urine Protein - Negative Bedside Urine Urobilinogen - Negative Bedside Urine Nitrite - Negative Bedside Urine Leukocytes - Negative Esterase Imaging Data CT scan - head: Radiologist's Impression: [address] [address] [address] Scan Report Signed Patient: Jenni Mitchell R#: [id number] : 1980Acct:[id number] Age/Sex: 39 / FDate of Service: 01/30/20 Loc: ED Accession Number: [id number] Procedure: CT head/brain wo con Ordering Provider: Jeronimo Mendoza D.O. PROCEDURE: CT HEAD/BRAIN WO CON INDICATIONS: Left-sided weakness TECHNIQUE: Noncontrast 4.5 mm thick angled axial sections acquired from the foramen magnum to the vertex, with coronal and sagittal reformats. For radiation dose reduction, the following was used: automated exposure control, adjustment of mA and/or kV according to patient size. COMPARISON: [facility], CT, HEAD WITHOUT CONTRAST, 06/01/2010, 2:44. FINDINGS: Image quality: Excellent. CSF spaces: Basal cisterns are patent. No extra-axial fluid collections. Ventricles are normal in size and shape. Brain: No midline shift. No intracranial masses or hemorrhage. Joshua-white matter interface is normal. Skull and face: Calvarium and visualized facial bones are intact, without suspicious lesions. Sinuses: Visualized sinuses and mastoids are clear. IMPRESSION: No acute process. Dictated by: Ulysses Bhatt M.D. on 01/30/2020 at 19:40 Approved by: Ulysses Bhatt M.D. on 01/30/2020 at 19:40 [facility] Narrative Medical decision making narrative: NIH score 1 secondary to subjective decreased sensation to left side of face and left lower extremity. Rest of her neurologic exam is unremarkable. Head CT is unremarkable. Labs are unremarkable. Low suspicion for CVA. Her left arm symptoms could potentially be a ulnar nerve issue secondary to the distribution of her tingling. I feel no further workup is needed in the emergency department. We did discuss return precautions and follow-up instructions. She expressed understanding and agreement. Discharge Plan Departure Patient Disposition: Home Clinical Impression: Paresthesias Discharge Date/Time: 01/30/20 21:03 Instructions: DI for Numbness/Tingling Activity Restrictions/Additional Instructions: Recommend that you obtain a blood pressure cuff and start taking your blood pressure no more than 1 time a day and potentially even just 2 or 3 times a week. Once you obtain several readings of this talk with your primary doctor about the indications for starting blood pressure medications. Also recommend that you start on a whxc-umg-ayhiydk decongestant such as Claritin or Priya or Zyrtec. You can purchase the generic versions of these medications. Return to the emergency department for any new or worsening symptoms Prescriptions: No Action Mynatal 1 EACH capsule 1 cap PO DAILY Qty: 0 RF: 0 meclizine 25 mg tablet 25 mg PO TID PRN (Reason: dizziness) Qty: 10 RF: 0
[2020-01-30 19:57] LABS: Add Manual Diff / Slide Review NO; Basophils Absolute Auto 100 /uL (0-100); Basophils Percent Auto 0.7 % (0-2); Eosinophils Absolute Auto 0 /uL (0-450); Eosinophils Percent Auto 0.3 % (2-4); Hemoglobin 13.5 g/dL (12.0-16.0); Lymphocytes Absolute Auto 1800 /uL (1100-4500); Mean Corpuscular HGB Conc 33.7 % (30-36); Mean Corpuscular Hemoglobin 29.2 PG (26-34); Mean Corpuscular Volume 86.7 fL (80-100); Monocytes Absolute Auto 600 /uL (0-900); Monocytes Percent Auto 6.4 % (3-14); Neutrophils Absolute Auto 6600 /uL (1500-7000); Neutrophils Percent Auto 72.6 % (50-75); Platelet Count 317 X10^3/uL (150-400); Red Blood Cell Count 4.61 X10^6/uL (4.0-5.2); Red Cell Distribution Width 14.2 % (11.6-14.8); White Blood Cell Count 9.1 X10^3/uL (4.5-11.0)
[2020-01-30 20:09] LABS: Alanine Aminotransferase 15 IU/L (<35); Albumin 4.3 g/dL (3.5-5.0); Albumin Globulin Ratio 1.3 (1.0-2.8); Alkaline Phosphatase 98 U/L (38-126); Aspartate Aminotransferase 21 IU/L (14-36); BUN Creatinine Ratio 8.3 (6-22); Bilirubin Total 0.4 mg/dL (0.2-1.3); Blood Urea Nitrogen 6 mg/dL (7-17); Calcium 8.8 mg/dL (8.4-10.2); Carbon Dioxide 21 mmol/L (22-32); Chloride 108 mmol/L (98-107); Estimated Glomerular Filt Rate > 60.0 mL/min (>60); Globulin 3.4 g/dL (1.7-4.1); Glucose 112 mg/dL (70-100); HEMOLYSIS < 15 (0-50); Potassium 3.7 mmol/L (3.4-5.1); Sodium 137 mmol/L (137-145); Total Protein 7.7 g/dL (6.3-8.2)
== END 2020-01-30 21:03 | disposition home or self-care (01) ==
PROVIDERS: Nurse Practitioner Family; Emergency Provider Emergency Medicine
DX: R20.2 Paresthesia of skin (principal)
CPT/HCPCS: 36415; 70450; 80053; 81003; 85025; 99284

== ENCOUNTER 2020-05-19 01:53 | Emergency (ER) | payer MEDICAID, OTHER, SELFPAY ==
[2020-05-19 01:55] VITALS: BP 149/110; PULSE 112; RESP 18; TEMP 36.6; O2SAT 99; BMI 25.4
--- NOTE | 2020-05-19 02:24 | ED.EAR ---
HPI - Ear Problem General Chief complaint: Ear Stated complaint: Sinus pressure X1 day Time Seen by Provider: 05/19/20 01:57 Source: patient and family Mode of arrival: Ambulatory Limitations: no limitations History of Present Illness HPI Narrative: 39F non smoker with extensive history of nose and ear surgeries presents with the chief complaint of some facial fullness and pain, bilateral ear pain, and mild headache this afternoon. She has not taken any medications thus far. She denies any fever chills and has had no sore throat or cough. She denies any N/V/D or other. Related Data Home Medications Medication Instructions Recorded Confirmed Mynatal 1 cap PO DAILY #0 09/08/16 08/25/19 Previous Rx's Medication Instructions Recorded meclizine 25 mg PO TID PRN #10 tab 01/12/20 Allergies Allergy/AdvReac Type Severity Reaction Status Date / Time codeine Allergy Intermediate HIVES Verified 05/19/20 02:01 Review of Systems Constitutional Constitutional: Denies chills, Denies fatigue, Denies fever(s), Denies frequent falls, Denies lethargy and Denies weakness Eyes Eyes: Denies change in vision, Denies eye discharge, Denies irritation and Denies loss of vision ENT Ears, Nose, Mouth, and Throat: Denies change in voice, Denies dizziness, Reports facial pain, Denies neck pain, Reports post nasal drip, Denies sore throat and Denies throat swelling Comments: otalgia Cardiovascular Cardiovascular: Denies chest pain, Denies irregular heart rhythm, Denies lightheadedness, Denies palpitations, Denies dyspnea, Denies dyspnea on exertion and Denies orthopnea Respiratory Respiratory: Denies cough, Denies dyspnea, Denies dyspnea on exertion and Denies wheezing Gastrointestinal Gastrointestinal: Denies abdominal pain, Denies change in bowel habits, Denies diarrhea, Denies nausea and Denies vomiting Musculoskeletal Musculoskeletal: Denies neck pain and Denies numbness Integumentary/Breasts Skin/Breast: Denies pruritus, Denies erythema, Denies rash and Denies wounds Neurologic Neurologic: Denies behavioral changes, Denies confusion, Denies dizziness, Denies frequent falls, Denies loss of vision, Denies numbness and Denies weakness Psychiatric Psychiatric: Denies anxiety, Denies behavioral changes, Denies confusion, Denies depression, Denies homicidal ideation and Denies suicidal ideation Endocrine Endocrine: Denies fatigue, Denies flushing and Denies palpitations Hematologic/Lymphatic Hematologic/Lymphatic: Denies easy bruising Allergic/Immunologic Allergic/Immunologic: Denies urticaria, Denies throat swelling and Denies wheezing Patient History Medical History AMA (advanced maternal age) multigravida 35+ Asthma (spontaneous vaginal delivery) Surgical History History of cholecystectomy (~2010) S/P dilatation and curettage (~04/11/19) S/P rhinoplasty (~2006) [place] teeth removed Family History Father Diabetes mellitus Hypertension Mother Pancreatic cancer Grandfather Hypertension Diabetes mellitus S/P triple vessel bypass Grandmother Cancer Grandfather No problems noted. Grandmother No problems noted. Social History marital status: household members: spouse and children education level: high school (10th Grade) occupational status: unemployed current occupational exposures/hazards: No special constantine needs: No Smoking Status: Never smoker substance use type: does not use Smoking Status: Never smoker alcohol intake frequency: other Substance Use Type: does not use and marijuana Exam Narrative Exam Narrative: GEN: AOx3 and in mild distress EYES: Pupils are equal, round, and reactive to light and accommodation. Extraoccular muscles are intact bilaterally. There is no subconjunctival hemorrhage or exudate. HEAD: mild tenderness to palpation over maxillary sinuses. No pain over frontal. No change with transillumination ENT: TMs clear bilaterally. Mild clear effusion B/L. Mild postnasal drip. No pharyngeal erythema or exudate. No uvular swelling CHEST: Lungs are clear to auscultation bilaterally and free of wheezes, rales, or rhonchi. Heart rate is regular rhythm, there are no murmurs, clicks, rubs, or gallops. There is no chest wall tenderness. ABD: Abdomen is soft and nontender. There is no guarding or rebound. Bowel sounds are normal in all 4 quadrants. There is no mass or organomegaly. EXT: Full painless ROM of all extremities with no loss of sensation or strength. SKIN: Warm, pink, and dry. No erythema or rash Initial Vital Signs Initial Vital Signs: Vital Signs Temperature 97.9 F 05/19/20 01:55 Pulse Rate 112 H 05/19/20 01:55 Respiratory Rate 18 05/19/20 01:55 Blood Pressure 149/110 H 05/19/20 01:55 Pulse Oximetry 99 05/19/20 01:55 Course Vital Signs Vital signs: Vital Signs - 8 hr 05/19/20 01:55 Temperature 97.9 F Pulse Rate 112 H Respiratory Rate 18 Blood Pressure 149/110 H Pulse Oximetry 99 Discharge Plan Departure Patient Disposition: Home Clinical Impression: Congestion of nasal sinus Instructions: DI for Sinus Headache Activity Restrictions/Additional Instructions: *You have been diagnosed with [headache, ear fullness, face pain all likely due to nasal congestion and drainage ] *What to do: *Take medications as directed: Over the counter medications with an antihistamine (Benadryl, Cristin, Zyrtec, etc) to help dry your secretions and a decongestant (such as sudafed or phenylephrine) to help with inflammation. Also, Tylenol or Motrin will be helpful for pain. *Follow up with your primary care provider in 2-3 days, call for an appointment. Let them know you were seen in the Emergency Department and that we ask that you be seen in follow up *Return to ER if you should have any new, worsening or concerning symptoms Prescriptions: No Action Mynatal 1 EACH capsule 1 cap PO DAILY Qty: 0 RF: 0 meclizine 25 mg tablet 25 mg PO TID PRN (Reason: dizziness) Qty: 10 RF: 0
== END 2020-05-19 02:30 | disposition home or self-care (01) ==
PROVIDERS: Emergency Provider Emergency Medicine
DX: R09.81 Nasal congestion (principal); R51.9 Headache, unspecified; H92.03 Otalgia, bilateral
CPT/HCPCS: 99281

== ENCOUNTER 2020-05-21 16:47 | Emergency (ER) | payer OTHER, MEDICAID, SELFPAY ==
[2020-05-21] VITALS (11 sets, daily range): BP systolic 134–172; BP diastolic 86–110; PULSE 85–115; RESP 14–26; TEMP 36.8–37.2; O2SAT 97–99
--- NOTE | 2020-05-21 17:16 | DI.CT.S_ITS ---
PROCEDURE: CT STROKE INDICATIONS: TPA CANDIDATE, RUE weakness, tingling started 164 TECHNIQUE: Noncontrast 4.5 mm thick angled axial sections acquired from the foramen magnum to the vertex, with coronal reformats. For radiation dose reduction, the following was used: automated exposure control, adjustment of mA and/or kV according to patient size. COMPARISON: [facility], CT, CT HEAD/BRAIN WO CON, 01/30/2020, 19:30. FINDINGS: Image quality: Excellent. CSF spaces: Basal cisterns are patent. No extra-axial fluid collections. Ventricles are normal in size and shape. Brain: No midline shift. No intracranial masses or hemorrhage. Joshua-white matter interface is normal. Skull and face: Calvarium and visualized facial bones are intact, without suspicious lesions. Sinuses: Patient is status post left mastoidectomy. Fluid and gas is noted within the nasopharynx. Visualized sinuses and mastoids are otherwise clear. IMPRESSION: 1. No acute intracranial findings. These findings were discussed with Dr. Youssef at 5:34 p.m. On May 21, 2020. This study fulfills neurological imaging criteria for inclusion or exclusion of acute stroke therapies based on available published neurological imaging guidelines. Dictated by: Kayleigh Oconnor M.D. on 05/21/2020 at 17:31 Approved by: Kayleigh Oconnor M.D. on 05/21/2020 at 17:34
--- NOTE | 2020-05-21 17:17 | DI.CT.S_ITS ---
PROCEDURE: CT ANGIO HEAD AND NECK INDICATIONS: RUE weakness, tingling started 1644 TECHNIQUE: Pre-contrast 4.5 mm thick sections acquired from the foramen magnum to the vertex. After the administration of intravenous contrast, 1 mm thick sections acquired from the aortic arch through the [place]. Post-contrast 4.5 mm thick sections then re-acquired from the foramen magnum to the vertex. 3-dimensional tylhzmj-ryywqrxps-bqlxdowold (MIP) and/or volume rendering reformats were acquired of the central intracranial vasculature and neck separately. COMPARISON: None. FINDINGS: Image quality: Excellent. BRAIN: CSF spaces: Ventricles are normal in size and shape. Basal cisterns are patent. No extra-axial fluid collections. Brain: No midline shift. No intracranial bleeds or masses. Joshua-white matter interface appears intact. Skull and face: Calvarium and facial bones appear intact, without suspicious lesions. Orbits appear normal. Sinuses: Sinuses and mastoids are clear. HEAD CT ANGIOGRAPHY: Anterior circulation: Intracranial internal carotid arteries are normal in size and flow. The flow within the paired anterior cerebral arteries is normal and symmetric. The flow within the middle cerebral arteries is normal and symmetric. The anterior communicating artery is seen. No aneurysms are seen. Posterior circulation: Visualized portions of the vertebral arteries demonstrate normal caliber, and join to form a normal appearing basilar artery. Flow within the posterior cerebral arteries is normal and symmetric. No aneurysms are seen. NECK CT ANGIOGRAPHY: Carotid system: The great vessels demonstrate a bovine anatomy as they arise from the aortic arch. The origins of the common carotid arteries appear patent. The common carotid arteries demonstrate normal caliber and courses. The bifurcation regions are both widely patent. The internal carotid arteries demonstrate normal calibers and courses. Posterior circulation: The origins of the vertebral arteries both appear widely patent. The more superior extracranial portions of both vertebral arteries also demonstrate normal courses and calibers. They join to form a normal appearing basilar artery. Soft tissues: Visualized neck soft tissues demonstrate no suspicious abnormalities. Bones: No suspicious bony lesions. Patient status post left mastoidectomy. Visualized cervical spine appears normally aligned. Fluid and gas is noted in the nasopharynx. IMPRESSION: 1. No stenosis, occlusion, or aneurysm. 2. Postsurgical change of the left mastoid. Fluid and gas in the nasopharynx Any quantitative measurements of stenosis were performed using NASCET criteria. Dictated by: Kayleigh Oconnor M.D. on 05/21/2020 at 17:56 Approved by: Kayleigh Oconnor M.D. on 05/21/2020 at 18:03
--- NOTE | 2020-05-21 17:31 | ED_ITS ---
HPI - Neuro Symptoms/Deficit General Chief Complaint: Neuro Symptoms/Deficit Stated Complaint: Right side numbeness Time Seen by Provider: 05/21/20 16:56 Source: patient Mode of arrival: Ambulatory Limitations: no limitations History of Present Illness HPI Narrative: 39-year-old female non-smoker with history of hypertension and multiple sinus surgeries presents with her significant other and a chief complaint of a sudden onset right upper extremity numbness, tingling, weakness and blurred vision that started suddenly at 4:45 p.m. she was taken directly to CT and activated as a code stroke. She denies any recent injury, fever chills. She denies use of blood thinners or trouble with bleeding. She states her symptoms are worsening. She's had no recent surgery, denies bleeding. She had no seizure activity. She's had no fever or chills. She denies known exposure to COVID Onset (ago): minute(s) Time: 16:45 Last Observed Normal: 16:45 Timing confirmed by: family member Location: right arm History of same: No Severity: moderate Quality: weak, numb and tingling Relieving factors: none Exacerbating factors: none Context: sudden onset On Anticoagulants: No Treatments Prior to Arrival: none Related Data Home Medications Medication Instructions Recorded Confirmed Mynatal 1 cap PO DAILY #0 09/08/16 08/25/19 Previous Rx's Medication Instructions Recorded meclizine 25 mg PO TID PRN #10 tab 01/12/20 Allergies Allergy/AdvReac Type Severity Reaction Status Date / Time codeine Allergy Intermediate HIVES Verified 05/19/20 02:01 Review of Systems Constitutional Constitutional: Denies chills, Denies fatigue, Denies fever(s), Denies frequent falls, Denies lethargy and Reports weakness Eyes Eyes: Denies change in vision, Denies eye discharge, Denies irritation and Denies loss of vision ENT Ears, Nose, Mouth, and Throat: Denies change in voice, Denies dizziness, Denies neck pain, Denies sore throat and Denies throat swelling Cardiovascular Cardiovascular: Denies chest pain, Denies irregular heart rhythm, Denies lightheadedness, Denies palpitations, Denies dyspnea, Denies dyspnea on exertion and Denies orthopnea Respiratory Respiratory: Denies cough, Denies dyspnea, Denies dyspnea on exertion and Denies wheezing Gastrointestinal Gastrointestinal: Denies abdominal pain, Denies change in bowel habits, Denies diarrhea, Denies nausea and Denies vomiting Musculoskeletal Musculoskeletal: Denies neck pain and Denies numbness Integumentary/Breasts Skin/Breast: Denies pruritus, Denies erythema, Denies rash and Denies wounds Neurologic Neurologic: Denies behavioral changes, Denies confusion, Denies dizziness, Denies frequent falls, Denies loss of vision, Denies numbness, Reports paresthesias and Reports weakness Psychiatric Psychiatric: Denies anxiety, Denies behavioral changes, Denies confusion, Denies depression, Denies homicidal ideation and Denies suicidal ideation Endocrine Endocrine: Denies fatigue, Denies flushing and Denies palpitations Hematologic/Lymphatic Hematologic/Lymphatic: Denies easy bruising Allergic/Immunologic Allergic/Immunologic: Denies urticaria, Denies throat swelling and Denies wheezing Patient History Medical History (Updated 05/21/20 @ 21:28 by Enma Bloom RN) AMA (advanced maternal age) multigravida 35+ Asthma (spontaneous vaginal delivery) Surgical History History of cholecystectomy (~2010) S/P dilatation and curettage (~04/11/19) S/P rhinoplasty (~2006) B[place] teeth removed Family History Father Diabetes mellitus Hypertension Mother Pancreatic cancer Grandfather Hypertension Diabetes mellitus S/P triple vessel bypass Grandmother Cancer Grandfather No problems noted. Grandmother No problems noted. Social History marital status: household members: spouse and children education level: high school (10th Grade) occupational status: unemployed current occupational exposures/hazards: No special constantine needs: No Smoking Status: Never smoker substance use type: does not use Smoking Status: Never smoker alcohol intake frequency: other Substance Use Type: does not use and marijuana Exam Narrative Exam Narrative: GENERAL: [39] year old patient appears stated age. Well- nourished, well-developed patient, in mild distress. Anxious HEAD: Atraumatic. Normocephalic. EYES: Pupils equal round and reactive. Extraocular motions intact. No scleral icterus. No injection or drainage. ENT: Nose without bleeding, purulent drainage. Throat without erythema, tonsillar hypertrophy or exudate. Airway patent. NECK: Trachea midline. Non tender CARDIOVASCULAR: Regular rate and rhythm without murmurs, gallops, or rubs. RESPIRATORY: Clear to auscultation. Breath sounds equal bilaterally. No wheezes, rales, or rhonchi. GASTROINTESTINAL: Abdomen soft, non-tender, nondistended. EXTREMITIES: No edema or joint tenderness. BACK: Nontender without deformity or crepitance. No flank tenderness. NEURO: AOx3. SKIN: No rash or erythema of visible areas Initial Vital Signs Initial Vital Signs: Vital Signs Temperature 99 F 05/21/20 17:12 Pulse Rate 115 H 05/21/20 17:12 Respiratory Rate 18 05/21/20 17:12 Blood Pressure 172/106 H 05/21/20 17:12 Pulse Oximetry 98 05/21/20 17:12 Scores NIH Stroke Scale Level of Conciousness: Alert, keenly responsive Ask month/age: Answers both questions correctly. Open/close eyes, close hand: Performs both tasks correctly Best gaze horizontal: Normal Visual garcia: No visual loss Facial palsy: Minor paralysis, flattened nasolabial fold, asymmetry on smiling Left arm drift: No drift for full 10 sec Right arm drift: Some effort against gravity, cannot maintain, drifts down to bed Left leg drift: No drift for full 5 sec Right leg drift: No drift for full 5 sec Limb ataxia: Absent Sensory on face/arms/legs: Mild to moderate sensory loss, can tell touch Best language: No aphasia, normal Dysarthria: Normal Extinction or inattention: No abnormality Total NIH Stroke scale score: 4 Course Course Course Narrative: tPA (Tissue Plasminogen Activator) Dosing for Stroke Calculator from [employer] on 05/21/2020 All calculations should be rechecked by clinician prior to use RESULT SUMMARY: 5.7 mg Bolus dose, given IV over 1 min 51.5 mg Infusion, given IV over 60 mins 42.8 mg Waste, to be discarded INPUTS: Weight ?> 63.6 kg tPA Contraindications for Ischemic Stroke from [employer] on 05/21/2020 All calculations should be rechecked by clinician prior to use RESULT SUMMARY: Patient eligible for tPA. INPUTS: Age ?18 ?> 1 = Yes Clinical diagnosis of ischemic stroke causing neurological deficit ?> 1 = Yes Time of symptom onset ?> 1 = Yes Intracranial hemorrhage on CT ?> 0 = No Clinical presentation suggests subarachnoid hemorrhage ?> 0 = No Neurosurgery, head trauma, or stroke in past 3 months ?> 0 = No Uncontrolled hypertension (>185 mmHg SBP or >110 mmHg DBP) ?> 0 = No History of intracranial hemorrhage ?> 0 = No Known intracranial arteriovenous malformation, neoplasm, or aneurysm ?> 0 = No Active internal bleeding ?> 0 = No Suspected/confirmed endocarditis ?> 0 = No Known bleeding diathesis ?> 0 = No Abnormal blood glucose ( ?> 0 = No Only minor or rapidly improving stroke symptoms ?> 0 = No Major surgery or serious non-head trauma in the previous 14 days ?> 0 = No History of gastrointestinal or urinary tract hemorrhage within 21 days ?> 0 = No Seizure at stroke onset ?> 0 = No Recent arterial puncture at a noncompressible site ?> 0 = No Recent lumbar puncture ?> 0 = No Post myocardial infarction pericarditis ?> 0 = No ?> 0 = No Age >80 years ?> 0 = No History of prior stroke and diabetes ?> 0 = No Any active anticoagulant use (even with INR ?> 0 = No NIHSS >25 ?> 0 = No CT shows multilobar infarction (hypodensity >1/3 cerebral hemisphere) ?> 0 = No 1735 tPA ordered 1750 bolus administered, followed by drip Orders Ordered: Discontinued Medications Alteplase, Recombinant (Alteplase 100 Mg Vial) 5.7 mg 0.09 mg/kg (5.7 mg) IV NOW ONE Stop: 05/21/20 18:33 Last Admin: 05/21/20 17:48 Dose: 5.7 mg Documented by: LESA Alteplase, Recombinant (Alteplase 100 Mg Vial) 51.5 mg 0.81 mg/kg (51.5 mg) IV NOW ONE Stop: 05/21/20 18:33 Last Admin: 05/21/20 17:51 Dose: 51.5 mg Documented by: LESA Sodium Chloride (Normal Saline 0.9%) 1,000 mls @ 150 mls/hr IV CONT MAYANK Last Infusion: 05/21/20 21:05 Dose: 150 mls/hr Documented by: Infusion: 05/21/20 21:05 Dose: 150 mls/hr Documented by: Infusion: 05/21/20 20:52 Dose: 0 mls/hr Documented by: Admin: 05/21/20 19:22 Dose: 150 mls/hr Documented by: LESA Pantoprazole Sodium (Pantoprazole 40 Mg Vial) 40 mg IV NOW ONE Stop: 05/21/20 20:42 Last Admin: 05/21/20 20:44 Dose: 40 mg Documented by: LESA Reevaluation(s) Reevaluation #1: near complete resolution of symptoms at completion of drip Consultations Consultation #1: call to [facility] Neuro, agree with plan, request we speak with Neuro ICU call to [facility] Neuro ICU (Jase) happy to accept Vital Signs Vital signs: Vital Signs - 8 hr 05/21/20 17:12 05/21/20 17:40 05/21/20 17:41 Temperature 99 F 98.2 F Pulse Rate 115 H 85 Respiratory Rate 18 16 Blood Pressure 172/106 H 166/110 H 146/96 H Pulse Oximetry 98 05/21/20 18:46 05/21/20 19:30 05/21/20 19:31 Temperature Pulse Rate 89 99 H 99 H Respiratory Rate 16 18 25 H Blood Pressure 138/91 H 134/89 Pulse Oximetry 99 98 98 05/21/20 19:40 05/21/20 19:50 05/21/20 20:00 Temperature Pulse Rate 87 94 H 96 H Respiratory Rate 26 H 25 H 25 H Blood Pressure 146/90 H Pulse Oximetry 99 97 98 05/21/20 20:10 Temperature Pulse Rate 92 H Respiratory Rate 25 H Blood Pressure Pulse Oximetry 99 MDM - Neuro Symptoms/Deficit Lab Data Result diagrams: 05/21/20 17:29 05/21/20 17:29 Labs: Lab Results 05/21/20 05/21/20 05/21/20 Range/Units 17:29 17:29 17:29 WBC 9.1 (4.5-11.0) X10^3/uL RBC 4.57 (4.0-5.2) X10^6/uL Hgb 13.5 (12.0-16.0) g/dL Hct 40.1 (36-46) % MCV 87.8 (80-100) fL MCH 29.5 (26-34) PG MCHC 33.6 (30-36) % RDW 14.3 (11.6-14.8) % Plt Count 420 H (150-400) X10^3/uL Neut % (Auto) 58.0 (50-75) % Lymph % (Auto) 28.9 (25-40) % [place] % (Auto) 5.7 (3-14) % Eos % (Auto) 6.2 H (2-4) % Baso % (Auto) 1.2 (0-2) % Neut # (Auto) 5300 (6839-1102) /uL Lymph # (Auto) 2600 (5915-4249) /uL [place] # (Auto) 500 (0-900) /uL Eos # (Auto) 600 H (0-450) /uL Baso # (Auto) 100 (0-100) /uL PT 11.6 (10.1-12.7) SECONDS INR 1.0 (0.9-1.3) APTT 32 (26.4-36.2) SECONDS Sodium 139 (137-145) mmol/L Potassium 3.6 (3.4-5.1) mmol/L Chloride 109 H (98-107) mmol/L Carbon Dioxide 23 (22-32) mmol/L BUN 8 (7-17) mg/dL Creatinine 0.80 (0.52-1.04) mg/dL Estimated GFR > 60.0 (>60) mL/min BUN/Creatinine Ratio 10.0 (6-22) Glucose 116 H (70-100) mg/dL Calcium 8.8 (8.4-10.2) mg/dL Total Creatine Kinase 72 (30-135) U/L CK-MB (CK-2) TNP CK-MB (CK-2) Rel Index TNP Troponin I < 0.012 (0.01-0.034) ng/mL Urine RBC (0-5/HPF) Urine WBC (0-5/HPF) Ur Squamous Epith Cells (0-5/HPF) Amorphous Sediment Urine Bacteria (None) Ur Culture Indicated? U Opiates 300ng/mL cut (Negative) Ur Oxycodone Screen (Negative) Urine Methadone Screen (Negative) Ur Barbiturates Screen (Negative) U Tricyclic Antidepress (Negative) Ur Phencyclidine Scrn (Negative) Ur Amphetamines Screen (Negative) U Methamphetamines Scrn (Negative) Ur MDMA Scrn (Ecstasy) (Negative) U Benzodiazepines Scrn (Negative) Urine Cocaine Screen (Negative) U Marijuana (THC) Screen (Negative) COVID-19 PCR (Negative) 05/21/20 05/21/20 05/21/20 Range/Units 18:11 18:22 18:22 WBC (4.5-11.0) X10^3/uL RBC (4.0-5.2) X10^6/uL Hgb (12.0-16.0) g/dL Hct (36-46) % MCV (80-100) fL MCH (26-34) PG MCHC (30-36) % RDW (11.6-14.8) % Plt Count (150-400) X10^3/uL Neut % (Auto) (50-75) % Lymph % (Auto) (25-40) % [place] % (Auto) (3-14) % Eos % (Auto) (2-4) % Baso % (Auto) (0-2) % Neut # (Auto) (9633-3067) /uL Lymph # (Auto) (5611-8395) /uL [place] # (Auto) (0-900) /uL Eos # (Auto) (0-450) /uL Baso # (Auto) (0-100) /uL PT (10.1-12.7) SECONDS INR (0.9-1.3) APTT (26.4-36.2) SECONDS Sodium (137-145) mmol/L Potassium (3.4-5.1) mmol/L Chloride (98-107) mmol/L Carbon Dioxide (22-32) mmol/L BUN (7-17) mg/dL Creatinine (0.52-1.04) mg/dL Estimated GFR (>60) mL/min BUN/Creatinine Ratio (6-22) Glucose (70-100) mg/dL Calcium (8.4-10.2) mg/dL Total Creatine Kinase (30-135) U/L CK-MB (CK-2) CK-MB (CK-2) Rel Index Troponin I (0.01-0.034) ng/mL Urine RBC 1-5/hpf (0-5/HPF) Urine WBC 0-1/hpf (0-5/HPF) Ur Squamous Epith Cells 1-5 /hpf (0-5/HPF) Amorphous Sediment 1+ Urine Bacteria Occasional (0-1) (None) Ur Culture Indicated? Cult not indicated U Opiates 300ng/mL cut Negative (Negative) Ur Oxycodone Screen Negative (Negative) Urine Methadone Screen Negative (Negative) Ur Barbiturates Screen Negative (Negative) U Tricyclic Antidepress Negative (Negative) Ur Phencyclidine Scrn Negative (Negative) Ur Amphetamines Screen Negative (Negative) U Methamphetamines Scrn Negative (Negative) Ur MDMA Scrn (Ecstasy) Negative (Negative) U Benzodiazepines Scrn Negative (Negative) Urine Cocaine Screen Negative (Negative) U Marijuana (THC) Screen Positive H (Negative) COVID-19 PCR Negative (Negative) Point of Care Testing Glucose POC 98 Urine Dip Bedside Urine Glucose Negative Bedside Urine Bilirubin - Negative Bedside Urine Ketone - Negative Urine Specific [place] 1.010 Bedside Urine Occult Blood + Bedside Urine pH 7.5 Bedside Urine Protein - Negative Bedside Urine Urobilinogen - Negative Bedside Urine Nitrite - Negative Bedside Urine Leukocytes - Negative Esterase Imaging Data CT scan - head: Radiologist's Impression: Jenni Mitchell V 39 F [address] [id number] Scan ReportSigned Patient: Jenni Mitchell VMR#: [id number]: 1980Acct:[id number]/Sex: 39 / FDate of Service: 05/21/20Loc: EDAccession Number: [id number] Procedure: CT Stroke Ordering Provider: Danial Youssef D.O. PROCEDURE: CT STROKE INDICATIONS: TPA CANDIDATE, RUE weakness, tingling started 1645 TECHNIQUE: Noncontrast 4.5 mm thick angled axial sections acquired from the foramen magnum to the vertex, with coronal reformats. For radiation dose reduction, the following was used: automated exposure control, adjustment of mA and/or kV according to patient size. COMPARISON: [facility], CT, CT HEAD/BRAIN WO CON, 01/30/2020, 19:30. FINDINGS: Image quality: Excellent. CSF spaces: Basal cisterns are patent. No extra-axial fluid collections. Ventricles are normal in size and shape. Brain: No midline shift. No intracranial masses or hemorrhage. Joshua-white matter interface is normal. Skull and face: Calvarium and visualized facial bones are intact, without suspicious lesions. Sinuses: Patient is status post left mastoidectomy. Fluid and gas is noted within the nasopharynx. Visualized sinuses and mastoids are otherwise clear. IMPRESSION: 1. No acute intracranial findings. These findings were discussed with Dr. Youssef at 5:34 p.m. On May 21, 2020. This study fulfills neurological imaging criteria for inclusion or exclusion of acute stroke therapies based on available published neurological imaging guidelines. Dictated by: Kayleigh Oconnor M.D. on 05/21/2020 at 17:31 Approved by: Kayleigh Oconnor M.D. on 05/21/2020 at 17:34 CTA Head/Neck: Radiologist's Impression: Chart Viewer Diagnostics DATE TYPE STATUS REF RANGE/AUTHOR Jeremiah Today 17:17 Kayleigh Oconnor Today 17:16 Kayleigh Oconnor 01/30/20 19:01 Ulysses Bhatt 12/11/19 02:25 Paco Hale 03/13/19 17:52 Daron Jaime 09/16/16 12:29 Jenni Mitchell V 39, F0 1980 [facility] ER, Main ED R05 63.6kg Neuro Symptoms/Deficit Search Chart No Data to Display HIVES ONSET 02/12/16 Today 20:10 Jenni Mitchell V 39 F [address] Scan ReportSigned Patient: Jenni Mitchell VMR#: [id number]: 1980Acct:[id number]/Sex: 39 / FDate of Service: 05/21/20Loc: EDAccession Number: [id number] Procedure: CT angio head and neck Ordering Provider: Danial Youssef D.O. PROCEDURE: CT ANGIO HEAD AND NECK INDICATIONS: RUE weakness, tingling started 5 TECHNIQUE: Pre-contrast 4.5 mm thick sections acquired from the foramen magnum to the vertex. After the administration of intravenous contrast, 1 mm thick sections acquired from t he aortic arch through the [place] of [place]. Post-contrast 4.5 mm thick sections then re- acquired from the foramen magnum to the vertex. 3-dimensional scgpijl-maaunxwto-[id number] (MIP) and/or volume rendering reformats were acquired of the central intracranial vasculature and neck separately. COMPARISON: None. FINDINGS: Image quality: Excellent. BRAIN: CSF spaces: Ventricles are normal in size and shape. Basal cisterns are patent. No extra-axial fluid collections. Brain: No midline shift. No intracranial bleeds or masses. Joshua-white matter interface appears intact. Skull and face: Calvarium and facial bones appear intact, without suspicious lesions. Orbits appear normal. Sinuses: Sinuses and mastoids are clear. HEAD CT ANGIOGRAPHY: Anterior circulation: Intracranial internal carotid arteries are normal in size and flow. The flow within the paired anterior cerebral arteries is normal and symmetric. The flow within the middle cerebral arteries is normal and symmetric. The anterior communicating artery is seen. No aneurysms are seen. Posterior circulation: Visualized portions of the vertebral arteries demonstrate normal caliber, and join to form a normal appearing basilar artery. Flow within the posterior cerebral arteries is normal and symmetric. No aneurysms are seen. NECK CT ANGIOGRAPHY: Carotid system: The great vessels demonstrate a bovine anatomy as they arise from the aortic arch. The origins of the common carotid arteries appear patent. The common carotid arteries demonstrate normal caliber and courses. The bifurcation regions are both widely patent. The internal carotid arteries demonstrate normal calibers and courses. Posterior circulation: The origins of the vertebral arteries both appear widely patent. The more superior extracranial portions of both vertebral arteries also demonstrate normal courses and calibers. They join to form a normal appearing basilar artery. Soft tissues: Visualized neck soft tissues demonstrate no suspicious abnormalities. Bones: No suspicious bony lesions. Patient status post left mastoidectomy. Visualized cervical spine appears normally aligned. Fluid and gas is noted in the nasopharynx. IMPRESSION: 1. No stenosis, occlusion, or aneurysm. 2. Postsurgical change of the left mastoid. Fluid and gas in the nasopharynx Any quantitative measurements of stenosis were performed using NASCET criteria. Dictated by: Kayleigh Oconnor M.D. on 05/21/2020 at 17:56 Approved by: Kayleigh Oconnor M.D. on 05/21/2020 at 18:03 Critical Care Time Critical Care Time Critical Care Time: Yes Total Critical Care Time: 30 Attestation: The high probability of a clinically significant, sudden or life threatening deterioration of the [Neuro] system(s) required my full and direct attention, intervention and personal management. The aggregate critical care time was [30] minutes. This time is in addition to time spent performing reported procedures but includes the following: [x] Data Review and interpretation x Patient assessment and monitoring of vital signs [x] Documentation [x] Medication orders and management Discharge Plan Departure Patient Disposition: [facility] Clinical Impression: Ischemic stroke Prescriptions: No Action Mynatal 1 EACH capsule 1 cap PO DAILY Qty: 0 RF: 0 meclizine 25 mg tablet 25 mg PO TID PRN (Reason: dizziness) Qty: 10 RF: 0
[2020-05-21 17:41] LABS: Add Manual Diff / Slide Review NO; Basophils Absolute Auto 100 /uL (0-100); Basophils Percent Auto 1.2 % (0-2); Eosinophils Absolute Auto 600 /uL (0-450); Eosinophils Percent Auto 6.2 % (2-4); Hematocrit 40.1 % (36-46); Hemoglobin 13.5 g/dL (12.0-16.0); Lymphocytes Absolute Auto 2600 /uL (1100-4500); Lymphocytes Percent Auto 28.9 % (25-40); Mean Corpuscular HGB Conc 33.6 % (30-36); Mean Corpuscular Hemoglobin 29.5 PG (26-34); Mean Corpuscular Volume 87.8 fL (80-100); Monocytes Absolute Auto 500 /uL (0-900); Monocytes Percent Auto 5.7 % (3-14); Neutrophils Absolute Auto 5300 /uL (1500-7000); Platelet Count 420 X10^3/uL (150-400); Red Blood Cell Count 4.57 X10^6/uL (4.0-5.2); Red Cell Distribution Width 14.3 % (11.6-14.8); White Blood Cell Count 9.1 X10^3/uL (4.5-11.0)
[2020-05-21 17:48] LABS: Prothrombin Time 11.6 SECONDS (10.1-12.7)
[2020-05-21] MEDS: ALTEPLASE 100 MG VIAL 5.7 MG IV (17:48)
[2020-05-21 17:51] LABS: PTT Partial Thromboplastin Tim 32 SECONDS (26.4-36.2)
[2020-05-21] MEDS: ALTEPLASE 100 MG VIAL 51.5 MG IV (17:51)
[2020-05-21 17:56] LABS: Blood Urea Nitrogen 8 mg/dL (7-17); Calcium 8.8 mg/dL (8.4-10.2); Carbon Dioxide 23 mmol/L (22-32); Chloride 109 mmol/L (98-107); Creatine Kinase 72 U/L (30-135); Estimated Glomerular Filt Rate > 60.0 mL/min (>60); Glucose 116 mg/dL (70-100); HEMOLYSIS 15 (0-50); Potassium 3.6 mmol/L (3.4-5.1); Sodium 139 mmol/L (137-145)
[2020-05-21 18:08] LABS: Troponin I < 0.012 ng/mL (0.01-0.034)
--- NOTE | 2020-05-21 18:31 | PC.NURSE ---
Pt reports improved feeling in fingers at 1805, improvement of feeling in right arm up to elbow, 1814. Able to touch right arm to nose slowly at 182. Dr Youssef notfied or changes in pt condition.
[2020-05-21 18:47] LABS: COVID19 -Nasal RAPID Negative (Negative)
[2020-05-21 18:54] LABS: UR Morphine/Opiate cutoff 300 Negative (Negative); Ur Creatinine Normal (Normal); Ur Specific Gravity Normal (Normal); Urine Amphetamines Negative (Negative); Urine Barbiturates Negative (Negative); Urine Benzodiazepines Negative (Negative); Urine Cocaine Negative (Negative); Urine MDMA Negative (Negative); Urine Methadone Negative (Negative); Urine Methamphetamines Negative (Negative); Urine Oxycodone Negative (Negative); Urine Phencyclidine Negative (Negative); Urine Tetrahydrocannabinol Positive (Negative); Urine Tricyclic Antidepressant Negative (Negative); Urine pH Normal (Normal)
--- NOTE | 2020-05-21 18:57 | PC.NURSE ---
Pt reports I think everything is better. Pt able to move self out of bed, stand at bedside, raise arm with full ROM (though slower movement than left side.) Denies numbness and tingling. NIHSS 1 at this time.
[2020-05-21 19:20] LABS: Amorphous Sediment Urine 1+; Bacteria Urine Occasional (0-1); Culture Indicated Urine Cult Not Indicated; RBC Urine 1-5/HPF (0-5/HPF); Squamous Epithelial Cell Urine 1-5 /HPF (0-5/HPF); WBC Urine 0-1/HPF (0-5/HPF)
[2020-05-21] MEDS: SODIUM CHLORIDE 0.9% 1,000 ML 150 ML IV (19:22)
--- NOTE | 2020-05-21 20:08 | PC.NURSE ---
report called to [facility] ICU, Mily MENARD.
[2020-05-21] MEDS: PANTOPRAZOLE 40 MG VIAL IV (20:44)
--- NOTE | 2020-05-21 21:05 | PC.NURSE ---
pt transferred to outside hospital with NS infusing at 150ml/hr at 2105
== END 2020-05-21 21:00 | disposition short-term general hospital (02) ==
PROVIDERS: Emergency Provider Emergency Medicine
DX: I63.9 Cerebral infarction, unspecified (principal); R20.2 Paresthesia of skin; G81.91 Hemiplegia, unspecified affecting right dominant side; H53.8 Other visual disturbances; R29.704 NIHSS score 4; Z20.828 Contact with and (suspected) exposure to other viral communicable diseases
CPT/HCPCS: 36415; 70450; 70496; 70498; 80048; 80305; 81003; 81015; 82550; 82962; 84484; 85025; 85610; 85730; 87635; 93005; 96361; 96374; 96375; 99283; 99291; 99292; C9113; J2997

== ENCOUNTER 2020-05-28 03:26 | Emergency (ER) | payer MEDICAID, OTHER, SELFPAY ==
[2020-05-28 03:32] VITALS: BP 144/86; PULSE 62; RESP 16; O2SAT 96; BMI 25.4
--- NOTE | 2020-05-28 03:38 | ED_ITS ---
HPI - Female Genitourinary General Chief complaint: GI Bleed Stated complaint: BLOOD IN STOOL X2 Time Seen by Provider: 05/28/20 03:29 Source: patient Mode of arrival: Ambulatory Limitations: no limitations History of Present Illness HPI Narrative: 39-year-old woman 7 days tPA for what was presumed to be a stroke involving her arm. She was sent down to [facility] for continued care after tPA. She has been doing well since discharge but has had a bit of constipation. She was carefully warned to return to the hospital for any evidence of bleeding. This evening after having of very constipated bowel mov ement she noticed bright red blood on the toilet tissue after wiping. She comes in for further evaluation. She has no personal history of internal external hemorrhoids and typically does not have any issues with constipation. She describes no dizziness, palpitations, vaginal bleeding or discharge currently, no chest pain, shortness of breath, fevers, abdominal pain, diarrhea or vomiting. Related Data Home Medications Medication Instructions Recorded Confirmed Mynatal 1 cap PO DAILY #0 09/08/16 08/25/19 Previous Rx's Medication Instructions Recorded meclizine 25 mg PO TID PRN #10 tab 01/12/20 Allergies Allergy/AdvReac Type Severity Reaction Status Date / Time codeine Allergy Intermediate HIVES Verified 05/19/20 02:01 Review of Systems Review of Systems ROS Unobtainable: All systems reviewed & are unremarkable except as noted in HPI and below Patient History Medical History AMA (advanced maternal age) multigravida 35+ Asthma (spontaneous vaginal delivery) Surgical History History of cholecystectomy (~2010) S/P dilatation and curettage (~04/11/19) S/P rhinoplasty (~2006) [place] teeth removed Family History Father Diabetes mellitus Hypertension Mother Pancreatic cancer Grandfather Hypertension Diabetes mellitus S/P triple vessel bypass Grandmother Cancer Grandfather No problems noted. Grandmother No problems noted. alcohol intake frequency: other Substance Use Type: does not use and marijuana Exam Narrative Exam Narrative: General: Healthy appearing, in no acute distress. Able to give a complete and coherent history. Well-nourished well-developed HEENT: Moist mucous membranes, normal sclera with reactive pupils, Respiratory: Lungs are clear to auscultation, no wheezing no rales no rhonchi. Full and symmetrical air movement Cardiac: Regular rate and rhythm no murmurs no bruits Abdomen: Soft nontender good bowel tones, no flank pain Skin: Warm and dry, no rashes Neurologic: Grossly neurologically intact with no obvious asymmetries or abnormalities Extremities: No trauma, well perfused Psych: Cooperative, appropriate insight and affect Rectal exam: Small anal fissure with small external hemorrhoid at the 12 o'clock position. No active bleeding. Initial Vital Signs Initial Vital Signs: Vital Signs Pulse Rate 62 05/28/20 03:32 Respiratory Rate 16 05/28/20 03:32 Blood Pressure 144/86 H 05/28/20 03:32 Pulse Oximetry 96 05/28/20 03:32 Course Vital Signs Vital signs: Vital Signs - 8 hr 05/28/20 03:32 Pulse Rate 62 Respiratory Rate 16 Blood Pressure 144/86 H Pulse Oximetry 96 [facility] - Female Genitourinary Medical Records Attestation: I reviewed the patient's medical records. [facility] Narrative Medical decision making narrative: 39-year-old woman 1 week after tPA given for presumed stroke (later workup bed Sin[facility]a did not confirm evidence of a stroke), presents with bright red blood on the toilet tissue after having a very firm bowel movement. There were 2 episodes of blood on the tissue so she can in for further evaluation. She does have a small rectal fissure and a small external hemorrhoid that are likely the source of her bleeding. Reassurance is given. MiraLax is recommended to avoid constipation and she is safe for home discharge Discharge Plan Departure Patient Disposition: Home Clinical Impression: Bleeding external hemorrhoids Constipation Qualifiers: Constipation type: unspecified constipation type Qualified Code(s): K59.00 - Constipation, unspecified Instructions: DI for Hemorrhoids, DI for Constipation Activity Restrictions/Additional Instructions: Thank you for coming in today Any bleeding a week after you did receive that clot busting medication for an acute stroke is a very appropriate reason to come to the ER. Fortunately, your having a little bit of bleeding from an external hemorrhoid rather than anything more complicated. This is likely related to the bit of constipation that you are experiencing. This is self-limited and should resolve nicely To help with the constipation, I would suggest MiraLax (or the generic version of this) 1 cap full every day in a large glass of water or coffee or tea. When you notice that your stools are very soft, you can discontinue using the MiraLax. I hope you feel better Prescriptions: No Action Mynatal 1 EACH capsule 1 cap PO DAILY Qty: 0 RF: 0 meclizine 25 mg tablet 25 mg PO TID PRN (Reason: dizziness) Qty: 10 RF: 0
== END 2020-05-28 04:01 | disposition home or self-care (01) ==
PROVIDERS: Emergency Provider Emergency Medicine
DX: K64.4 Residual hemorrhoidal skin tags (principal); K59.00 Constipation, unspecified
CPT/HCPCS: 99281

== ENCOUNTER 2020-06-05 04:42 | Emergency (ER) | payer MEDICAID, OTHER, SELFPAY ==
[2020-06-05 04:49] VITALS: BP 155/93; PULSE 89; RESP 16; TEMP 36.3; O2SAT 97; BMI 24.6
--- NOTE | 2020-06-05 04:55 | DI.RAD.S_ITS ---
PROCEDURE: XR CHEST 1V INDICATIONS: Cough and chills, eval for pneumonia TECHNIQUE: One view of the chest was acquired. COMPARISON: None. FINDINGS: Surgical changes and devices: None. Lungs and pleura: Lungs are clear. No pleural effusions or pneumothorax. Mediastinum: Mediastinal contours appear normal. Heart size is normal. Bones and chest wall: No suspicious bony lesions. Overlying soft tissues appear unremarkable. IMPRESSION: No acute cardiopulmonary disease. 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 Dictated by: Ivett Burger M.D. on 06/05/2020 at 9:08 Approved by: Ivett Burger M.D. on 06/05/2020 at 9:09
[2020-06-05 05:03] LABS: Appearance Urine UA CLEAR; Bilirubin Urine UA NEGATIVE (NEGATIVE); Color Urine UA YELLOW; Glucose Urine UA NEGATIVE (Negative); Ketones Urine UA NEGATIVE (NEGATIVE); Leukocyte Esterase Urine UA TRACE (NEGATIVE); Nitrite Urine UA NEGATIVE (Negative); Occult Blood Urine UA 3+ (Negative); Protein Urine UA NEGATIVE (Negative); Specific Gravity Urine UA 1.025 (1.000-1.035); Urobilinogen Urine UA 0.2 E.U./dL (0.2)
[2020-06-05 05:05] LABS: Pregnancy Test Urine Negative (Negative)
[2020-06-05 05:06] LABS: pH Urine UA 5.5 (4.5-8.0)
[2020-06-05 05:19] LABS: COVID19 -Nasal RAPID Negative (Negative)
[2020-06-05 05:21] LABS: Bacteria Urine Few (2-10); RBC Urine 1-5/HPF (0-5/HPF); Squamous Epithelial Cell Urine 10-30 /HPF (0-5/HPF); WBC Urine 1-5/HPF (0-5/HPF)
[2020-06-05 05:22] LABS: Culture Indicated Urine Cult Not Indicated
--- NOTE | 2020-06-05 05:42 | ED_ITS ---
HPI - General Adult General Chief complaint: Upper Respiratory Symptoms Stated complaint: pt states cold/hot/cold symptons Time Seen by Provider: 06/05/20 04:43 Source: patient Mode of arrival: Ambulatory Limitations: no limitations History of Present Illness HPI narrative: Patient is a 39-year-old female who was discharged from an outside facility approximately 10 days ago after she was transferred there for what initially was thought to be an ischemic stroke. She received tPA prior to transfer to that facility. Since that time she has been on aspirin. She states that since that time she has had bruising especially on her forearms and on her shins. He she is unsure why she is bruising so much. She also states that last night she was having alternating hot and cold symptoms. She did feel like she was very anxious at the time because she did not know why she was bruising so much and because of all of the other issues that she has been having over the past several days/weeks. Related Data Home Medications Medication Instructions Recorded Confirmed Mynatal 1 cap PO DAILY #0 09/08/16 08/25/19 Previous Rx's Medication Instructions Recorded meclizine 25 mg PO TID PRN #10 tab 01/12/20 Allergies Allergy/AdvReac Type Severity Reaction Status Date / Time codeine Allergy Intermediate HIVES Verified 05/19/20 02:01 Review of Systems Constitutional Constitutional: Reports chills, Denies fever(s) and Denies headache(s) Eyes Eyes: Denies change in vision ENT Ears, Nose, Mouth, and Throat: Denies vertigo, Denies dizziness, Denies headache(s), Denies sinus pain and Denies sore throat Cardiovascular Cardiovascular: Denies chest pain and Denies dyspnea Respiratory Respiratory: Denies dyspnea Gastrointestinal Gastrointestinal: Denies abdominal pain, Denies nausea and Denies vomiting Genitourinary Genitourinary: Denies hematuria Genitourinary: Denies hematuria Musculoskeletal Musculoskeletal: Denies arthralgias and Denies myalgias Integumentary/Breasts Comments: Multiple bruising Neurologic Neurologic: Denies vertigo, Denies dizziness and Denies headache(s) Hematologic/Lymphatic Hematologic/Lymphatic: Reports easy bruising Allergic/Immunologic Allergic/Immunologic: Denies urticaria Patient History Medical History (Updated 06/05/20 @ 05:47 by Jeronimo Mendoza DO) AMA (advanced maternal age) multigravida 35+ Asthma (spontaneous vaginal delivery) Surgical History History of cholecystectomy (~2010) S/P dilatation and curettage (~04/11/19) S/P rhinoplasty (~2006) [place] teeth removed Family History Father Diabetes mellitus Hypertension Mother Pancreatic cancer Grandfather Hypertension Diabetes mellitus S/P triple vessel bypass Grandmother Cancer Grandfather No problems noted. Grandmother No problems noted. Social History marital status: household members: spouse and children education level: high school (10th Grade) occupational status: unemployed current occupational exposures/hazards: No special constantine needs: No Smoking Status: Never smoker substance use type: does not use Smoking Status: Never smoker alcohol intake frequency: other Substance Use Type: does not use and marijuana Exam Initial Vital Signs Initial Vital Signs: Vital Signs Temperature 97.3 F L 06/05/20 04:49 Pulse Rate 89 06/05/20 04:49 Respiratory Rate 16 06/05/20 04:49 Blood Pressure 155/93 H 06/05/20 04:49 Pulse Oximetry 97 06/05/20 04:49 Const General: cooperative and comfortable Limitations: mental status not altered HENMT Head: normal to inspection and normocephalic Resp Effort & Inspection: normal respiratory effort Cardio Rate: regular rate Rhythm: regular rhythm Skin Other: Multiple bruises especially on the bilateral anterior tibia. Neuro General: patient alert, patient awake and patient oriented x3 Extrem General: capillary refill normal Psych Appearance: well kempt Course Orders Ordered: ED Orders 06/05/20 04:50 Test Urine Stat Urinalysis and Microscopic Stat 06/05/20 04:55 XR chest 1V Stat COVID19 Stat Vital Signs Vital signs: Vital Signs - 8 hr 06/05/20 04:49 Temperature 97.3 F L Pulse Rate 89 Respiratory Rate 16 Blood Pressure 155/93 H Pulse Oximetry 97 Medical Decision Making Medical Records Medical records reviewed: Yes I reviewed the patient's medical records. Lab Data Lab results reviewed: Yes I reviewed the patient's lab results. Labs: Lab Results 06/05/20 06/05/20 06/05/20 Range/Units 04:50 04:50 04:55 Urine Color Yellow Urine Appearance Clear Urine pH 5.5 (4.5-8.0) Ur Specific [place] 1.025 (1.000-1.035) Urine Protein Negative (Negative) Urine Glucose (UA) Negative (Negative) g/dL Urine Ketones Negative (NEGATIVE) Urine Occult Blood 3+ H (Negative) Urine Nitrate Negative (Negative) Urine Bilirubin Negative (NEGATIVE) Urine Urobilinogen 0.2 (0.2) E.U./dL Ur Leukocyte Esterase Trace H (NEGATIVE) Urine RBC 1-5/hpf (0-5/HPF) Urine WBC 1-5/hpf (0-5/HPF) Ur Squamous Epith Cells 10-30 /hpf H D (0-5/HPF) Urine Bacteria Few (2-10) H (None) Ur Culture Indicated? Cult not indicated Micro UA Comment * Urine Test Negative (Negative) SARS-CoV-2 (PCR) Negative (Negative) Imaging Data Chest x-ray: Attestation: I personally reviewed and interpreted this imaging study as follows: My Impression: No acute changes, no pneumonia MDM Narrative Medical decision making narrative: Her bruising is located in areas where she most likely is having minor traumas. The bruising is most likely secondary to the tPA that she received and also the aspirin that she is currently on. I provided reassurance regarding this. She is not having any other indications for major bleeding. Will continue her on her aspirin. The hot and cold symptoms she was describing is most likely anxiety after my discussion with her. Chest x-ray shows no signs of pneumonia. Urine is not concerning for urinary tract infection. Her COVID is negative. I reassured her of the symptoms she is having she felt much better afterwards. She was given return precautions and follow-up instructions. She expressed understanding and agreement. Discharge Plan Departure Patient Disposition: Home Clinical Impression: Bruising Instructions: Easy Bruising (Alternative Therapy) Activity Restrictions/Additional Instructions: Your evaluation here in the emergency department did not show any signs of an infection. I do suspect that the bruising that you are having is because of the aspirin that you are currently taking. I do recommend that you continue to take the aspirin as he was recommended by the specialist that you saw at [facility]. Contact your primary provider for follow-up. Return to the emergency department for any new or worsening symptoms Prescriptions: No Action Mynatal 1 EACH capsule 1 cap PO DAILY Qty: 0 RF: 0 meclizine 25 mg tablet 25 mg PO TID PRN (Reason: dizziness) Qty: 10 RF: 0
[2020-06-05 06:31] VITALS: BP 127/91; PULSE 77; RESP 22; TEMP 36.8; O2SAT 96
== END 2020-06-05 06:15 | disposition home or self-care (01) ==
PROVIDERS: Emergency Provider Emergency Medicine
DX: T14.8XXA Other injury of unspecified body region, initial encounter (principal); J45.909 Unspecified asthma, uncomplicated; Z20.822 Contact with and (suspected) exposure to COVID-19
CPT/HCPCS: 71045; 81001; 81025; 87635; 99283; C9803

== ENCOUNTER 2020-06-11 03:20 | Emergency (ER) | payer MEDICAID, OTHER, SELFPAY ==
[2020-06-11 03:25] VITALS: BP 171/92; PULSE 96; RESP 16; TEMP 36.5; O2SAT 98; BMI 23.4
--- NOTE | 2020-06-11 03:37 | ED.GENADULT ---
HPI - General Adult General Chief complaint: Abdominal Pain Stated complaint: stomach pain Time Seen by Provider: 06/11/20 03:26 Source: patient Mode of arrival: Ambulatory Limitations: no limitations History of Present Illness HPI narrative: Patient is a 39-year-old female here for evaluation of just over 24 hours of lower abdominal pain. Also describes some itching in her vaginal area. Also describes burning with urination. She states she has had symptoms like this in the past and was given antibiotics for presumed urinary tract infection. She also reports she was seen at an outside facility for some vaginal itching. Was given a cream for this and that improved with now seems to have returned. Somewhat difficult to obtain a true HPI from the patient as she seems to switch back and forth as to whether not she is having urinary symptoms worse is vaginal symptoms. She initially stated that the itching was in her vaginal area but then stated that all of her symptoms are related to urination. She told me she was not having any vaginal discharge. Was not concerned about sexually transmitted diseases. Describes the pain is suprapubic area and also lower back. No change in bowel habits. Other than the cream that she was prescribed she has not tried anything for the symptoms prior to arrival. Related Data Home Medications Medication Instructions Recorded Confirmed Mynatal 1 cap PO DAILY #0 09/08/16 08/25/19 Previous Rx's Medication Instructions Recorded meclizine 25 mg PO TID PRN #10 tab 01/12/20 phenazopyridine [Pyridium] 100 mg PO TID PRN #6 tab 06/11/20 Allergies Allergy/AdvReac Type Severity Reaction Status Date / Time codeine Allergy Intermediate HIVES Verified 05/19/20 02:01 Review of Systems Constitutional Constitutional: Denies fever(s) Cardiovascular Cardiovascular: Denies chest pain and Denies dyspnea Respiratory Respiratory: Denies dyspnea Gastrointestinal Gastrointestinal: Reports abdominal pain, Denies nausea and Denies vomiting Genitourinary Genitourinary: Reports dysuria, Reports dysuria and Denies urinary hesitancy Genitourinary: Reports dysuria, Reports dysuria, Reports pelvic pain, Denies urinary hesitancy, Denies vaginal discharge, Denies vaginal odor and Denies vaginal pruritus Musculoskeletal Musculoskeletal: Reports back pain Integumentary/Breasts Skin/Breast: Denies lesions and Denies rash Neurologic Neurologic: Denies behavioral changes Psychiatric Psychiatric: Denies behavioral changes Hematologic/Lymphatic Hematologic/Lymphatic: Denies easy bleeding and Denies easy bruising Allergic/Immunologic Allergic/Immunologic: Denies urticaria Patient History Medical History AMA (advanced maternal age) multigravida 35+ Asthma (spontaneous vaginal delivery) Surgical History History of cholecystectomy (~2010) S/P dilatation and curettage (~04/11/19) S/P rhinoplasty (~2006) [place] teeth removed Family History Father Diabetes mellitus Hypertension Mother Pancreatic cancer Grandfather Hypertension Diabetes mellitus S/P triple vessel bypass Grandmother Cancer Grandfather No problems noted. Grandmother No problems noted. Social History marital status: household members: spouse and children education level: high school (10th Grade) occupational status: unemployed current occupational exposures/hazards: No special constantine needs: No Smoking Status: Never smoker substance use type: does not use Smoking Status: Never smoker alcohol intake frequency: other Substance Use Type: does not use and marijuana Exam Initial Vital Signs Initial Vital Signs: Vital Signs Temperature 97.7 F 06/11/20 03:25 Pulse Rate 96 H 06/11/20 03:25 Respiratory Rate 16 06/11/20 03:25 Blood Pressure 171/92 H 06/11/20 03:25 Pulse Oximetry 98 06/11/20 03:25 Const General: cooperative and comfortable Limitations: mental status not altered [facility] Head: normal to inspection and normocephalic Resp Effort & Inspection: normal respiratory effort Cardio Rate: regular rate GI Inspection: non-distended Palpation: soft, No firm, No guarding, No rigid and tender (Suprapubic) Skin Lesions: no lesions Rashes: no rashes Neuro General: patient alert and patient awake Cognition: normal cognition Speech: speech normal Extrem General: capillary refill normal Psych Appearance: grossly normal and well kempt Course Orders Ordered: ED Orders 06/11/20 03:32 Urine Microscopic Stat 06/11/20 03:58 CT kidney ureter bladder (KUB) Stat 06/11/20 04:08 Complete Blood Count AUTO DIFF Stat Comprehensive Metabolic Panel Stat Lipase Stat 06/11/20 05:11 Urine Culture Stat Discontinued Medications Phenazopyridine HCl (Phenazopyridine 100 Mg Tablet) 100 mg PO NOW ONE Stop: 06/11/20 05:11 Last Admin: 06/11/20 05:14 Dose: 100 mg Documented by: LISBET Vital Signs Vital signs: Vital Signs - 8 hr 06/11/20 03:25 06/11/20 05:29 Temperature 97.7 F Pulse Rate 96 H 80 Respiratory Rate 16 16 Blood Pressure 171/92 H 137/91 H Pulse Oximetry 98 97 Medical Decision Making Medical Records Medical records reviewed: Yes I reviewed the patient's medical records. Lab Data Lab results reviewed: Yes I reviewed the patient's lab results. Result diagrams: 06/11/20 04:08 06/11/20 04:08 Labs: Lab Results 06/11/20 06/11/20 06/11/20 Range/Units 03:32 04:08 04:08 WBC 8.7 (4.5-11.0) X10^3/uL RBC 4.43 (4.0-5.2) X10^6/uL Hgb 12.9 (12.0-16.0) g/dL Hct 38.5 (36-46) % MCV 86.9 (80-100) fL MCH 29.1 (26-34) PG MCHC 33.5 (30-36) % RDW 14.4 (11.6-14.8) % Plt Count 333 (150-400) X10^3/uL Neut % (Auto) 60.8 (50-75) % Lymph % (Auto) 29.6 (25-40) % [place] % (Auto) 6.6 (3-14) % Eos % (Auto) 2.0 (2-4) % Baso % (Auto) 1.0 (0-2) % Neut # (Auto) 5300 (1333-9459) /uL Lymph # (Auto) 2600 (9495-9790) /uL [place] # (Auto) 600 (0-900) /uL Eos # (Auto) 200 (0-450) /uL Baso # (Auto) 100 (0-100) /uL Sodium 135 L (137-145) mmol/L Potassium 4.0 (3.4-5.1) mmol/L Chloride 109 H (98-107) mmol/L Carbon Dioxide 21 L (22-32) mmol/L BUN 8 (7-17) mg/dL Creatinine 0.61 (0.52-1.04) mg/dL Estimated GFR > 60.0 (>60) mL/min BUN/Creatinine Ratio 13.1 (6-22) Glucose 107 H (70-100) mg/dL Calcium 8.5 (8.4-10.2) mg/dL Total Bilirubin 0.3 (0.2-1.3) mg/dL AST 22 (14-36) IU/L ALT 12 (<35) IU/L Alkaline Phosphatase 93 (38-126) U/L Total Protein 7.4 (6.3-8.2) g/dL Albumin 4.0 (3.5-5.0) g/dL Globulin 3.4 (1.7-4.1) g/dL Albumin/Globulin Ratio 1.2 (1.0-2.8) Lipase 143 (23-300) U/L Urine RBC 1-5/hpf (0-5/HPF) Urine WBC None seen (0-5/HPF) Ur Squamous Epith Cells 0-1 /hpf D (0-5/HPF) Urine Bacteria None seen (None) Ur Culture Indicated? Cult not indicated Urine Dip Bedside Urine Glucose Negative Bedside Urine Bilirubin - Negative Bedside Urine Ketone - Negative Urine Specific [place] 1.020 Bedside Urine Occult Blood ++ Bedside Urine pH 6.5 Bedside Urine Protein - Negative Bedside Urine Urobilinogen - Negative Bedside Urine Nitrite - Negative Bedside Urine Leukocytes - Negative Esterase Point of care testing: Urine Dip Bedside Urine Glucose Negative Bedside Urine Bilirubin - Negative Bedside Urine Ketone - Negative Urine Specific [place] 1.020 Bedside Urine Occult Blood ++ Bedside Urine pH 6.5 Bedside Urine Protein - Negative Bedside Urine Urobilinogen - Negative Bedside Urine Nitrite - Negative Bedside Urine Leukocytes - Negative Esterase Imaging Data CT scan - abdomen/pelvis: Radiologist's Impression: No renal calculi or hydronephrosis MDM Narrative Medical decision making narrative: Initially patient had symptoms that seemed consistent with a urinary tract infection however her urinalysis and urine micro only positive for blood. Her symptoms do seem to be located in the suprapubic region. She switch back and forth as to whether not her symptoms were vaginal verses urinary however after multiple questions pertaining to this she stated that her symptoms were urinary in origin. She was not having any vaginal bleeding. No vaginal discharge. She was not concerned about sexually transmitted diseases. CT scan of the abdomen pelvis showed no acute pathology.Feel we should hold on antibiotics given her urinalysis today however a urine culture was ordered and was pending at the time of discharge. She was given Pyridium to try to help with the dysuria symptoms she is having. No indication for surgical consultation. She was instructed that we would contact her once the urine culture resulted if we needed to start with any antibiotics. She was given return precautions. She expressed understanding and agreement. Discharge Plan Departure Patient Disposition: Home Clinical Impression: Abdominal pain, Dysuria Instructions: DI for Dysuria -- Adult Activity Restrictions/Additional Instructions: A urine culture was pending at the time of your discharge. We will contact you if it is positive we need to start you on antibiotics. Until then a prescription for Pyridium was sent to [facility]. Take it as needed and as directed. Contact your primary provider for follow-up. Return to the emergency department for any new or worsening symptoms Prescriptions: New phenazopyridine [Pyridium] 100 mg tablet 100 mg PO TID PRN (Reason: pain) Qty: 6 RF: 0 No Action Mynatal 1 EACH capsule 1 cap PO DAILY Qty: 0 RF: 0 meclizine 25 mg tablet 25 mg PO TID PRN (Reason: dizziness) Qty: 10 RF: 0
[2020-06-11 03:41] LABS: Bacteria Urine None Seen; WBC Urine None Seen (0-5/HPF)
[2020-06-11 03:51] LABS: Culture Indicated Urine Cult Not Indicated; Squamous Epithelial Cell Urine 0-1 /HPF (0-5/HPF)
[2020-06-11 03:52] LABS: RBC Urine 1-5/HPF (0-5/HPF)
--- NOTE | 2020-06-11 03:58 | DI.CT.S_ITS ---
PROCEDURE: CT KIDNEY URETER BLADDER (KUB) INDICATIONS: Suprapubic pain, blood in urine, eval for stone TECHNIQUE: Noncontrast 5 mm thick sections acquired from the diaphragms to the symphysis. 5 mm thick coronal and sagittal reformats were then performed. For radiation dose reduction, the following was used: automated exposure control, adjustment of mA and/or kV according to patient size. COMPARISON: [facility], CT, KIDNEY/ URETER/BLADDER, 09/09/2006, 16:23. FINDINGS: Image quality: Excellent. Lung bases: Lung bases are clear. Heart size is normal. Urinary system: Both kidneys are normal in size. No kidney stones. No hydronephrosis or perinephric fat stranding. Both ureters appear non-dilated throughout their expected courses. Bladder wall thickness is normal; no calcified bladder stones. Other solid organs: Liver is normal in size. Gallbladder is status post cholecystectomy . Pancreas is normal in contours. Spleen is normal in size. No adrenal nodules. Peritoneum and bowel: Unenhanced bowel loops demonstrate normal wall thickness and caliber. No free fluid or air. Nodes and vessels: No retroperitoneal or mesenteric adenopathy by size criteria. Aorta and inferior vena cava are normal in caliber. Abdominal wall: No ventral hernias. Pelvis: No free pelvic fluid. No inguinal hernias or adenopathy. Bones: No suspicious bony lesions. No vertebral body compression fractures. IMPRESSION 1. No acute abdominal or pelvic abnormality. 2. No renal stones identified. Dictated by: Ishan Alan M.D. on 06/11/2020 at 8:09 Approved by: sIhan Alan M.D. on 06/11/2020 at 8:10
[2020-06-11 04:14] LABS: Add Manual Diff / Slide Review NO; Basophils Absolute Auto 100 /uL (0-100); Eosinophils Absolute Auto 200 /uL (0-450); Hematocrit 38.5 % (36-46); Hemoglobin 12.9 g/dL (12.0-16.0); Lymphocytes Absolute Auto 2600 /uL (1100-4500); Lymphocytes Percent Auto 29.6 % (25-40); Mean Corpuscular HGB Conc 33.5 % (30-36); Mean Corpuscular Hemoglobin 29.1 PG (26-34); Mean Corpuscular Volume 86.9 fL (80-100); Monocytes Absolute Auto 600 /uL (0-900); Monocytes Percent Auto 6.6 % (3-14); Neutrophils Absolute Auto 5300 /uL (1500-7000); Neutrophils Percent Auto 60.8 % (50-75); Platelet Count 333 X10^3/uL (150-400); Red Blood Cell Count 4.43 X10^6/uL (4.0-5.2); Red Cell Distribution Width 14.4 % (11.6-14.8); White Blood Cell Count 8.7 X10^3/uL (4.5-11.0)
[2020-06-11 04:26] LABS: Alanine Aminotransferase 12 IU/L (<35); Albumin Globulin Ratio 1.2 (1.0-2.8); Alkaline Phosphatase 93 U/L (38-126); Aspartate Aminotransferase 22 IU/L (14-36); BUN Creatinine Ratio 13.1 (6-22); Bilirubin Total 0.3 mg/dL (0.2-1.3); Blood Urea Nitrogen 8 mg/dL (7-17); Calcium 8.5 mg/dL (8.4-10.2); Carbon Dioxide 21 mmol/L (22-32); Chloride 109 mmol/L (98-107); Estimated Glomerular Filt Rate > 60.0 mL/min (>60); Globulin 3.4 g/dL (1.7-4.1); Glucose 107 mg/dL (70-100); HEMOLYSIS 33 (0-50); Lipase 143 U/L (23-300); Sodium 135 mmol/L (137-145); Total Protein 7.4 g/dL (6.3-8.2)
[2020-06-11] MEDS: PHENAZOPYRIDINE 100 MG TABLET PO (05:14)
[2020-06-11 05:29] VITALS: BP 137/91; PULSE 80; RESP 16; O2SAT 97
== END 2020-06-11 05:29 | disposition home or self-care (01) ==
PROVIDERS: Emergency Provider Emergency Medicine
DX: R10.30 Lower abdominal pain, unspecified (principal); L29.2 Pruritus vulvae; R30.0 Dysuria
CPT/HCPCS: 36415; 74176; 80053; 81003; 81015; 83690; 85025; 87086; 99284

== ENCOUNTER → 2020-06-22 10:27 | Outpatient (CLI) | payer MEDICAID, OTHER, SELFPAY ==
--- NOTE | 2020-06-22 | DI.RAD.S_ITS ---
PROCEDURE: XR KUB INDICATIONS: CONSTIPATION TECHNIQUE: One view of the abdomen acquired. COMPARISON: None. FINDINGS: Surgical changes and devices: None. Bowel: Bowel gas pattern is normal. Soft tissues: No suspicious abdominal calcifications. Visualized solid organ contours appear normal in size. Bones: No suspicious bony lesions. IMPRESSION: Normal for age, source of current constipation symptoms is not seen. Dictated by: Daron Jaime M.D. on 06/22/2020 at 12:47 Approved by: Daron Jaime M.D. on 06/22/2020 at 12:47
== END ==
PROVIDERS: Referring Provider Physician Assistant; Visit Provider Physician Assistant
DX: K59.00 Constipation, unspecified (principal)
CPT/HCPCS: 74018

== ENCOUNTER 2020-06-28 11:42 | Emergency (ER) | payer MEDICAID, OTHER, SELFPAY ==
[2020-06-28] VITALS (11 sets, daily range): BP systolic 123–140; BP diastolic 75–95; PULSE 83–91; RESP 14–21; TEMP 36.7; O2SAT 97–99; BMI 23.4
--- NOTE | 2020-06-28 11:50 | DI.RAD.S_ITS ---
PROCEDURE: XR CHEST 1V INDICATIONS: chest pain TECHNIQUE: One view of the chest was acquired. COMPARISON: [facility], CR, XR CHEST 1V, 06/05/2020, 5:00. FINDINGS: Surgical changes and devices: None. Lungs and pleura: Lungs are clear. No pleural effusions or pneumothorax. Mediastinum: Mediastinal contours appear normal. Heart size is normal. Bones and chest wall: No suspicious bony lesions. Overlying soft tissues appear unremarkable. IMPRESSION: No evidence acute pulmonary process. Dictated by: Bladimir Donato M.D. on 06/28/2020 at 13:41 Approved by: Bladimir Donato M.D. on 06/28/2020 at 13:42
--- NOTE | 2020-06-28 11:58 | ED.CHESTPAIN ---
HPI - Chest Pain <Juju Hobson PA-C - Last Filed: 06/28/20 16:36> General Chief Complaint: Chest Pain Stated Complaint: Chest pain x 45 mins Time Seen by Provider: 06/28/20 11:43 Source: patient Mode of arrival: EMS Limitations: no limitations History of Present Illness HPI narrative: This is a somewhat uncomfortable and anxious appearing 39-year-old woman has a history of recent ureterolithiasis, hypertension, possible CVA who presents complaining of sharp chest pain that started at about 10:45 a.m. when she was at a for her aunt. She said the pain is a little bit more on the right but is generally in the center of her chest is sharp it was 9/10 when it started and continued constantly and unchanged until she received nitro and aspirin at the clinic locally. She said that this improved her pain and then in the ambulance they gave her another medicine and now her pain is 0/10. She also says she had 2 episodes of vomiting today after the pain started. She says she has never had pain like this previously. She notes that she lost both of her aunts and was 1 today and 1 tomorrow. She also notes that she was recently diagnosed with kidney stones and was passing kidney stones as recently as Thursday 5 days ago taking Flomax for this she stop taking this yesterday. She has not had ongoing symptoms. She denies shortness of breath, lightheadedness, dizziness, abdominal pain, flank pain, dysuria, syncope, palpitations or any other symptoms. MD complaint: chest pain Onset (ago): hour(s) (2) Time: 10:45 Duration: constant and now resolved Onset: other (Occurred at rest while at a ) Pain location: right chest Severity: severe Severity scale (1-10): 9 Quality: sharp Pain radiation: none Relieving factors: nitroglycerin Exacerbating factors: nothing Associated symptoms: nausea (now resolved) and vomiting (2 episodes) Treatments prior to arrival chest pain: aspirin (324), nitroglycerin (2 nitro) and other Related Data Home Medications Medication Instructions Recorded Confirmed Mynatal 1 cap PO DAILY #0 09/08/16 08/25/19 Previous Rx's Medication Instructions Recorded meclizine 25 mg PO TID PRN #10 tab 01/12/20 phenazopyridine [Pyridium] 100 mg PO TID PRN #6 tab 06/11/20 Allergies Allergy/AdvReac Type Severity Reaction Status Date / Time codeine Allergy Intermediate HIVES Verified 06/28/20 11:54 Review of Systems <Juju Hobson PA-C - Last Filed: 06/28/20 16:36> Review of Systems Narrative: GENERAL: Denies chills, fatigue, malaise, fever, sweats. HEENT: Denies sinus pain, ear pain, sore throat, difficulty swallowing, dizziness (did feel a little lightheaded a couple days ago when she was taking the Flomax). RESPIRATORY: Denies dyspnea, cough, wheezing, hemoptysis, sputum. CARDIOVASCULAR: Positive for sharp right-sided chest pain now completely resolved, denies palpitations, orthopnea, edema, GASTROINTESTINAL: Denies nausea, vomiting, abdominal pain, diarrhea, constipation, melena. : Denies dysuria, frequency, incontinence, hematuria, urinary retention. MUSCULOSKELETAL: denies weakness, joint pain, or bony pain SKIN: Denies rash, skin lesions, or other NEUROLOGIC: Denies weakness, headache, numbness, change in speech, confusion, seizures, incoordination. PSYCHIATRIC: No concerning psychosocial issues. 12 point review of systems is negative except for those stated above ROS Unobtainable: All systems reviewed & are unremarkable except as noted in HPI and below Patient History <Juju Hobson PA-C - Last Filed: 06/28/20 16:36> Medical History (Updated 06/28/20 @ 15:25 by Juju Hobson PA-C) AMA (advanced maternal age) multigravida 35+ Asthma (spontaneous vaginal delivery) Surgical History History of cholecystectomy (~2010) S/P dilatation and curettage (~04/11/19) S/P rhinoplasty (~2006) [place] teeth removed Family History Father Diabetes mellitus Hypertension Mother Pancreatic cancer Grandfather Hypertension Diabetes mellitus S/P triple vessel bypass Grandmother Cancer Grandfather No problems noted. Grandmother No problems noted. Social History marital status: household members: spouse and children education level: high school (10th Grade) occupational status: unemployed current occupational exposures/hazards: No special constantine needs: No Smoking Status: Never smoker substance use type: does not use Smoking Status: Never smoker alcohol intake frequency: other Substance Use Type: does not use and marijuana Exam <Juju Hobson PA-C - Last Filed: 06/28/20 16:36> Narrative Exam Narrative: GENERAL: 39 year old patient appears stated age. Well-nourished, well-developed patient, in mild distress. HEAD: Atraumatic. Normocephalic. EYES: Pupils equal round and reactive. Extraocular motions intact. No scleral icterus. No injection or drainage. ENT: Nose without bleeding, purulent drainage. Throat without erythema, tonsillar hypertrophy or exudate. Airway patent. NECK: Trachea midline. Non tender CARDIOVASCULAR: Regular rate and rhythm without murmurs, gallops, or rubs. RESPIRATORY: Clear to auscultation. Breath sounds equal bilaterally. No wheezes, rales, or rhonchi. GASTROINTESTINAL: Abdomen soft, non-tender, nondistended. EXTREMITIES: No edema or joint tenderness. BACK: Nontender without deformity or crepitance. No flank tenderness. NEURO: AOx3. SKIN: No rash or erythema of visible areas Initial Vital Signs Initial Vital Signs: Vital Signs Temperature 98.1 F 06/28/20 11:43 Pulse Rate 90 06/28/20 11:43 Respiratory Rate 16 06/28/20 11:43 Blood Pressure 128/80 06/28/20 11:43 Pulse Oximetry 99 06/28/20 11:43 <Ashlyn Miguel DO - Last Filed: 06/28/20 19:50> Initial Vital Signs Initial Vital Signs: Vital Signs Temperature 98.1 F 06/28/20 11:43 Pulse Rate 90 06/28/20 11:43 Respiratory Rate 16 06/28/20 11:43 Blood Pressure 128/80 06/28/20 11:43 Pulse Oximetry 99 06/28/20 11:43 Scores <Juju Hobson PA-C - Last Filed: 06/28/20 16:36> GCS [place] coma scale eye opening: Spontaneous Richie coma scale verbal response: Orientated [place] coma scale motor response: Obey commands [place] coma scale total score: 15 HEART Score Heart Score history: Slightly Suspicious Heart Score EKG: Normal Heart Score Age: < 45 years old Heart Score risk factors: 1-2 risk factors Course <Juju Hobson PA-C - Last Filed: 06/28/20 16:36> Course Additional Information: Patient had 325 of aspirin at the clinic and was also given 1 nitro at the clinic EMS also gave her 1 nitro EN route in the ambulance. Patient's pain is now 0/10 it was 9/10. 11:57 Labs thus far returning unremarkable. Awaiting 2nd troponin. On rechecking with the patient she has not had any recurrence of her chest pain and denies any other symptoms shins since she has been here. I updated regarding what to expect for the remainder of her stay in the ED. I offered to have social Work talk to her if she likes considering that she is clearly had a lot of stress in her life recently with to close in her family but she declines. 13:50 Orders Ordered: ED Orders 06/28/20 11:50 XR chest 1V Stat EKG-12 Lead Stat 06/28/20 12:10 Complete Blood Count AUTO DIFF Stat Comprehensive Metabolic Panel Stat Lipase Stat Troponin & CK Cardiac Panel Stat 06/28/20 13:21 Urine Microscopic Stat 06/28/20 14:15 Troponin I Stat Vital Signs Vital signs: Vital Signs - 8 hr 06/28/20 12:15 06/28/20 12:30 06/28/20 13:00 Pulse Rate 84 89 90 Respiratory Rate 21 16 Blood Pressure 134/90 123/84 130/88 Pulse Oximetry 99 97 98 06/28/20 13:30 06/28/20 14:00 06/28/20 14:43 Pulse Rate 89 85 91 H Respiratory Rate 21 17 Blood Pressure 127/75 124/76 Pulse Oximetry 99 98 06/28/20 14:44 06/28/20 15:00 06/28/20 15:09 Pulse Rate 83 89 84 Respiratory Rate 14 20 Blood Pressure 126/84 132/94 H Pulse Oximetry 98 97 98 06/28/20 15:30 Pulse Rate 86 Respiratory Rate Blood Pressure 140/95 H Pulse Oximetry 97 <Ashlyn Miguel DO - Last Filed: 06/28/20 19:50> Orders Ordered: ED Orders 06/28/20 11:50 XR chest 1V Stat EKG-12 Lead Stat 06/28/20 12:10 Complete Blood Count AUTO DIFF Stat Comprehensive Metabolic Panel Stat Lipase Stat Troponin & CK Cardiac Panel Stat 06/28/20 13:21 Urine Microscopic Stat 06/28/20 14:15 Troponin I Stat Vital Signs Vital signs: Vital Signs - 8 hr 06/28/20 12:15 06/28/20 12:30 06/28/20 13:00 Pulse Rate 84 89 90 Respiratory Rate 21 16 Blood Pressure 134/90 123/84 130/88 Pulse Oximetry 99 97 98 06/28/20 13:30 06/28/20 14:00 06/28/20 14:43 Pulse Rate 89 85 91 H Respiratory Rate 21 17 Blood Pressure 127/75 124/76 Pulse Oximetry 99 98 06/28/20 14:44 06/28/20 15:00 06/28/20 15:09 Pulse Rate 83 89 84 Respiratory Rate 14 20 Blood Pressure 126/84 132/94 H Pulse Oximetry 98 97 98 06/28/20 15:30 Pulse Rate 86 Respiratory Rate Blood Pressure 140/95 H Pulse Oximetry 97 MDM - Chest Pain <Juju Hobson PA-C - Last Filed: 06/28/20 16:36> Differential Diagnosis Differential diagnosis: Likely stable angina, atypical chest pain, chest pain and other (Grief, PE, coronary spasm) Medical Records Data Attestation: I reviewed the patient's medical records. Lab Data Attestation: I reviewed the patient's lab results. Result diagrams: 06/28/20 12:10 06/28/20 12:10 Labs: Lab Results 06/28/20 06/28/20 06/28/20 Range/Units 12:10 12:10 13:21 WBC 9.6 (4.5-11.0) X10^3/uL RBC 4.74 (4.0-5.2) X10^6/uL Hgb 13.5 (12.0-16.0) g/dL Hct 41.6 (36-46) % MCV 87.7 (80-100) fL MCH 28.5 (26-34) PG MCHC 32.5 (30-36) % RDW 13.9 (11.6-14.8) % Plt Count 385 (150-400) X10^3/uL Neut % (Auto) 71.0 (50-75) % Lymph % (Auto) 22.3 L (25-40) % [place] % (Auto) 5.1 (3-14) % Eos % (Auto) 0.9 L (2-4) % Baso % (Auto) 0.7 (0-2) % Neut # (Auto) 6800 (0442-4073) /uL Lymph # (Auto) 2100 (3941-1478) /uL [place] # (Auto) 500 (0-900) /uL Eos # (Auto) 100 (0-450) /uL Baso # (Auto) 100 (0-100) /uL Sodium 136 L (137-145) mmol/L Potassium 4.3 (3.4-5.1) mmol/L Chloride 105 (98-107) mmol/L Carbon Dioxide 25 (22-32) mmol/L BUN 8 (7-17) mg/dL Creatinine 0.58 (0.52-1.04) mg/dL Estimated GFR > 60.0 (>60) mL/min BUN/Creatinine Ratio 13.8 (6-22) Glucose 103 H (70-100) mg/dL Calcium 8.9 (8.4-10.2) mg/dL Total Bilirubin 0.3 (0.2-1.3) mg/dL AST 25 (14-36) IU/L ALT 19 (<35) IU/L Alkaline Phosphatase 122 (38-126) U/L Total Creatine Kinase 49 (30-135) U/L CK-MB (CK-2) TNP CK-MB (CK-2) Rel Index TNP Troponin I < 0.012 (0.01-0.034) ng/mL Total Protein 8.1 (6.3-8.2) g/dL Albumin 4.5 (3.5-5.0) g/dL Globulin 3.6 (1.7-4.1) g/dL Albumin/Globulin Ratio 1.3 (1.0-2.8) Lipase 70 (23-300) U/L Urine RBC 1-5/hpf (0-5/HPF) Urine WBC None seen (0-5/HPF) Urine Bacteria None seen (None) Ur Culture Indicated? Cult not indicated 06/28/20 Range/Units 14:15 WBC (4.5-11.0) X10^3/uL RBC (4.0-5.2) X10^6/uL Hgb (12.0-16.0) g/dL Hct (36-46) % MCV (80-100) fL MCH (26-34) PG MCHC (30-36) % RDW (11.6-14.8) % Plt Count (150-400) X10^3/uL Neut % (Auto) (50-75) % Lymph % (Auto) (25-40) % [place] % (Auto) (3-14) % Eos % (Auto) (2-4) % Baso % (Auto) (0-2) % Neut # (Auto) (4147-6257) /uL Lymph # (Auto) (1937-3933) /uL [place] # (Auto) (0-900) /uL Eos # (Auto) (0-450) /uL Baso # (Auto) (0-100) /uL Sodium (137-145) mmol/L Potassium (3.4-5.1) mmol/L Chloride (98-107) mmol/L Carbon Dioxide (22-32) mmol/L BUN (7-17) mg/dL Creatinine (0.52-1.04) mg/dL Estimated GFR (>60) mL/min BUN/Creatinine Ratio (6-22) Glucose (70-100) mg/dL Calcium (8.4-10.2) mg/dL Total Bilirubin (0.2-1.3) mg/dL AST (14-36) IU/L ALT (<35) IU/L Alkaline Phosphatase (38-126) U/L Total Creatine Kinase (30-135) U/L CK-MB (CK-2) CK-MB (CK-2) Rel Index Troponin I < 0.012 (0.01-0.034) ng/mL Total Protein (6.3-8.2) g/dL Albumin (3.5-5.0) g/dL Globulin (1.7-4.1) g/dL Albumin/Globulin Ratio (1.0-2.8) Lipase (23-300) U/L Urine RBC (0-5/HPF) Urine WBC (0-5/HPF) Urine Bacteria (None) Ur Culture Indicated? Point of Care Testing Test Results Negative ECG Data Attestation: I personally reviewed and interpreted this ECG as follows: Interpretation: EKG is normal sinus rhythm rate 86 and free of any signs of ischemia or ectopy. No ST segmental elevation or depression. T wave inversion lead V1, Otherwise No T wave inversions GA 138, QRS 70ms, QT 354/THV041, P axis 57, R axis 53, T axis 43-- Core Measures Measure exclusions: not indicated MDM Narrative Medical decision making narrative: This is a well-appearing 39-year-old woman with a history of recent ureterolithiasis who presents via ambulance coming from travel clinic with complaint of chest pain that began suddenly is sharp and right-sided when she was at rest attending her aunt's today. Her pain was relieved with aspirin, and nitro 1st dose administered at [facility] 2nd dose administered in the ambulance. On arrival to the ED she had 0/10 pain. EKG was unremarkable, labs returned unremarkable including serial troponins she has no return of her pain during her emergency department stay. I have low suspicion for PE, dissection, pneumonia or other acute cardiothoracic/pulmonary process. Possibly could be stress/grief-induced, coronary vasospasm, but etiology of her pain remains unclear. Given her age, complete improvement in symptoms and unremarkable workup patient is discharged with advice to follow-up primary care provider consider seeing Cardiology return to the ED with any new or worsening symptoms. <Ashlyn Miguel, DO - Last Filed: 06/28/20 19:50> Lab Data Labs: Lab Results 06/28/20 06/28/20 06/28/20 Range/Units 12:10 12:10 13:21 WBC 9.6 (4.5-11.0) X10^3/uL RBC 4.74 (4.0-5.2) X10^6/uL Hgb 13.5 (12.0-16.0) g/dL Hct 41.6 (36-46) % MCV 87.7 (80-100) fL MCH 28.5 (26-34) PG MCHC 32.5 (30-36) % RDW 13.9 (11.6-14.8) % Plt Count 385 (150-400) X10^3/uL Neut % (Auto) 71.0 (50-75) % Lymph % (Auto) 22.3 L (25-40) % [place] % (Auto) 5.1 (3-14) % Eos % (Auto) 0.9 L (2-4) % Baso % (Auto) 0.7 (0-2) % Neut # (Auto) 6800 (8524-6647) /uL Lymph # (Auto) 2100 (9318-4982) /uL [place] # (Auto) 500 (0-900) /uL Eos # (Auto) 100 (0-450) /uL Baso # (Auto) 100 (0-100) /uL Sodium 136 L (137-145) mmol/L Potassium 4.3 (3.4-5.1) mmol/L Chloride 105 (98-107) mmol/L Carbon Dioxide 25 (22-32) mmol/L BUN 8 (7-17) mg/dL Creatinine 0.58 (0.52-1.04) mg/dL Estimated GFR > 60.0 (>60) mL/min BUN/Creatinine Ratio 13.8 (6-22) Glucose 103 H (70-100) mg/dL Calcium 8.9 (8.4-10.2) mg/dL Total Bilirubin 0.3 (0.2-1.3) mg/dL AST 25 (14-36) IU/L ALT 19 (<35) IU/L Alkaline Phosphatase 122 (38-126) U/L Total Creatine Kinase 49 (30-135) U/L CK-MB (CK-2) TNP CK-MB (CK-2) Rel Index TNP Troponin I < 0.012 (0.01-0.034) ng/mL Total Protein 8.1 (6.3-8.2) g/dL Albumin 4.5 (3.5-5.0) g/dL Globulin 3.6 (1.7-4.1) g/dL Albumin/Globulin Ratio 1.3 (1.0-2.8) Lipase 70 (23-300) U/L Urine RBC 1-5/hpf (0-5/HPF) Urine WBC None seen (0-5/HPF) Urine Bacteria None seen (None) Ur Culture Indicated? Cult not indicated 06/28/20 Range/Units 14:15 WBC (4.5-11.0) X10^3/uL RBC (4.0-5.2) X10^6/uL Hgb (12.0-16.0) g/dL Hct (36-46) % MCV (80-100) fL MCH (26-34) PG MCHC (30-36) % RDW (11.6-14.8) % Plt Count (150-400) X10^3/uL Neut % (Auto) (50-75) % Lymph % (Auto) (25-40) % [place] % (Auto) (3-14) % Eos % (Auto) (2-4) % Baso % (Auto) (0-2) % Neut # (Auto) (1580-2954) /uL Lymph # (Auto) (3961-1937) /uL [place] # (Auto) (0-900) /uL Eos # (Auto) (0-450) /uL Baso # (Auto) (0-100) /uL Sodium (137-145) mmol/L Potassium (3.4-5.1) mmol/L Chloride (98-107) mmol/L Carbon Dioxide (22-32) mmol/L BUN (7-17) mg/dL Creatinine (0.52-1.04) mg/dL Estimated GFR (>60) mL/min BUN/Creatinine Ratio (6-22) Glucose (70-100) mg/dL Calcium (8.4-10.2) mg/dL Total Bilirubin (0.2-1.3) mg/dL AST (14-36) IU/L ALT (<35) IU/L Alkaline Phosphatase (38-126) U/L Total Creatine Kinase (30-135) U/L CK-MB (CK-2) CK-MB (CK-2) Rel Index Troponin I < 0.012 (0.01-0.034) ng/mL Total Protein (6.3-8.2) g/dL Albumin (3.5-5.0) g/dL Globulin (1.7-4.1) g/dL Albumin/Globulin Ratio (1.0-2.8) Lipase (23-300) U/L Urine RBC (0-5/HPF) Urine WBC (0-5/HPF) Urine Bacteria (None) Ur Culture Indicated? Point of Care Testing Test Results Negative ECG Data Attestation: I personally reviewed and interpreted this ECG as follows: Interpretation: Sinus rhythm rate of 86, P 138 QRS of 70 QTC of 423. Id no EKG changes appreciated. Similar to today from 09/16/2016. Discharge Plan Departure Patient Disposition: Home Clinical Impression: Chest pain, non-cardiac Instructions: DI for Atypical Chest Pain Activity Restrictions/Additional Instructions: Thank you for letting us be part of your care in the emergency department today. I am glad that your pain improved and did not return while you are staying in the emergency department with us. All of your labs came back looking good today including serial cardiac labs to check on the enzyme we talked about (troponin). Your EKG (that looks at the electrical pattern in your heart and that can indicate heart damage) also looked good today. It is very important that you follow-up with your primary care provider and that if you have chest pain in the future you take it seriously do not hesitate to seek medical care. I do not think that there is a reason to keep the her in the emergency department any longer or do any additional testing at this time. There are number of reasons that people can have chest pain in your case the cause is unclear however it is possible that it could be related to stress and grief. It is very important that if you develop new or concerning symptoms you get rechecked. There is no evidence of an emergent or life threatening illness at this time, but follow up with your doctor in 1-2 days is recommended nonetheless to continue to rule out serious underlying causes of your symptoms. Please call the office for an appointment. Please return to the Emergency Department for any worsening or persistent symptoms. Please take medications as directed. Prescriptions: No Action Mynatal 1 EACH capsule 1 cap PO DAILY Qty: 0 RF: 0 meclizine 25 mg tablet 25 mg PO TID PRN (Reason: dizziness) Qty: 10 RF: 0 phenazopyridine [Pyridium] 100 mg tablet 100 mg PO TID PRN (Reason: pain) Qty: 6 RF: 0 Referrals: [facility] Resources [Outside] <Ashlyn Miguel, - Last Filed: 06/28/20 19:50> Cosign ED Attending Dario Attestation: I was immediately available in the department for consultation. Documentation has been reviewed. EKG was reviewed.
[2020-06-28 12:19] LABS: Add Manual Diff / Slide Review NO; Basophils Absolute Auto 100 /uL (0-100); Basophils Percent Auto 0.7 % (0-2); Eosinophils Absolute Auto 100 /uL (0-450); Eosinophils Percent Auto 0.9 % (2-4); Hematocrit 41.6 % (36-46); Hemoglobin 13.5 g/dL (12.0-16.0); Lymphocytes Absolute Auto 2100 /uL (1100-4500); Lymphocytes Percent Auto 22.3 % (25-40); Mean Corpuscular HGB Conc 32.5 % (30-36); Mean Corpuscular Hemoglobin 28.5 PG (26-34); Mean Corpuscular Volume 87.7 fL (80-100); Monocytes Absolute Auto 500 /uL (0-900); Monocytes Percent Auto 5.1 % (3-14); Neutrophils Absolute Auto 6800 /uL (1500-7000); Platelet Count 385 X10^3/uL (150-400); Red Blood Cell Count 4.74 X10^6/uL (4.0-5.2); Red Cell Distribution Width 13.9 % (11.6-14.8); White Blood Cell Count 9.6 X10^3/uL (4.5-11.0)
[2020-06-28 12:32] LABS: Alanine Aminotransferase 19 IU/L (<35); Albumin 4.5 g/dL (3.5-5.0); Albumin Globulin Ratio 1.3 (1.0-2.8); Alkaline Phosphatase 122 U/L (38-126); Aspartate Aminotransferase 25 IU/L (14-36); BUN Creatinine Ratio 13.8 (6-22); Bilirubin Total 0.3 mg/dL (0.2-1.3); Blood Urea Nitrogen 8 mg/dL (7-17); Calcium 8.9 mg/dL (8.4-10.2); Carbon Dioxide 25 mmol/L (22-32); Chloride 105 mmol/L (98-107); Creatine Kinase 49 U/L (30-135); Estimated Glomerular Filt Rate > 60.0 mL/min (>60); Globulin 3.6 g/dL (1.7-4.1); Glucose 103 mg/dL (70-100); HEMOLYSIS < 15 (0-50); Lipase 70 U/L (23-300); Potassium 4.3 mmol/L (3.4-5.1); Sodium 136 mmol/L (137-145); Total Protein 8.1 g/dL (6.3-8.2)
[2020-06-28 12:42] LABS: Troponin I < 0.012 ng/mL (0.01-0.034)
[2020-06-28 13:22] LABS: Bacteria Urine None Seen; WBC Urine None Seen (0-5/HPF)
[2020-06-28 13:32] LABS: Culture Indicated Urine Cult Not Indicated; RBC Urine 1-5/HPF (0-5/HPF)
[2020-06-28 14:44] LABS: Troponin I < 0.012 ng/mL (0.01-0.034)
== END 2020-06-28 15:49 | disposition home or self-care (01) ==
PROVIDERS: Emergency Provider Student in an Organized Health Care Education/Training Program
DX: R07.89 Other chest pain (principal); R11.10 Vomiting, unspecified; I10 Essential (primary) hypertension
CPT/HCPCS: 36415; 71045; 80053; 81015; 81025; 82550; 83690; 84484; 85025; 93005; 99283; 99284

== ENCOUNTER 2020-07-10 11:19 | Emergency (ER) | payer MEDICAID, OTHER, SELFPAY ==
[2020-07-10 11:22] VITALS: BP 143/99; PULSE 83; RESP 14; TEMP 36.6; O2SAT 98; BMI 24.8
--- NOTE | 2020-07-10 11:45 | ED_ITS ---
HPI - Headache <LUCAS An - Last Filed: 07/10/20 15:14> General Chief Complaint: Headache Stated Complaint: headaches behind eyes/feels like something on eye Time Seen by Provider: 07/10/20 11:28 Mode of arrival: Ambulatory Limitations: no limitations History of Present Illness HPI Narrative: 39yo female with a history of CVA (taking aspirin), HTN, and rhinoplasty, presents to the ED for headache behind her eyes for the past 3 days. Patient states the pain is slightly worse on her left side than her right. She also developed nasal congestion during this time but is able to blow her nose and denies any significant pressure. Verbal, patient noticed that her left eye has a film over where she states it is is more blurry. She also states if she concentrates in the were chart she can see double on her left eye only when her right eye is covered, no double vision when both eyes are on covered. Patient has been taking Tylenol, last dose was at 4:00 a.m.. She states headaches are worse with light. She denies any other symptoms such as fevers, cough, chest pain, shortness of breath, dizziness, nausea, vomiting, diarrhea, or any other concerns. Related Data Home Medications Medication Instructions Recorded Confirmed Mynatal 1 cap PO DAILY #0 09/08/16 08/25/19 Previous Rx's Medication Instructions Recorded meclizine 25 mg PO TID PRN #10 tab 01/12/20 phenazopyridine [Pyridium] 100 mg PO TID PRN #6 tab 06/11/20 Allergies Allergy/AdvReac Type Severity Reaction Status Date / Time codeine Allergy Intermediate HIVES Verified 07/10/20 11:25 Review of Systems <LUCAS An - Last Filed: 07/10/20 15:14> Review of Systems Narrative: REVIEW OF SYSTEMS: GENERAL: Denies fever or chills. HENT: No head trauma. Complains of headache, see HPI. CARDIOVASCULAR: No chest pain or syncope. RESPIRATORY: No shortness of breath or cough. GASTROINTESTINAL: No nausea or vomiting. GENITOURINARY: No flank pain or dysuria. MUSCULOSKELETAL: No pain, weakness, or deformities. INTEGUMENTARY: No rash. NEURO: No numbness or tingling. PSYCH: No behavior or mood changes. Patient History <LCUAS An - Last Filed: 07/10/20 15:14> Medical History (Updated 07/10/20 @ 12:50 by LUCAS An) AMA (advanced maternal age) multigravida 35+ Asthma (spontaneous vaginal delivery) Surgical History History of cholecystectomy (~2010) S/P dilatation and curettage (~04/11/19) S/P rhinoplasty (~2006) [place] teeth removed Family History Father Diabetes mellitus Hypertension Mother Pancreatic cancer Grandfather Hypertension Diabetes mellitus S/P triple vessel bypass Grandmother Cancer Grandfather No problems noted. Grandmother No problems noted. Social History marital status: household members: spouse and children education level: high school (10th Grade) occupational status: unemployed current occupational exposures/hazards: No special constantine needs: No Smoking Status: Never smoker substance use type: does not use Smoking Status: Never smoker alcohol intake frequency: other Substance Use Type: does not use and marijuana Exam <LUCAS An - Last Filed: 07/10/20 15:14> Initial Vital Signs Initial Vital Signs: Vital Signs Temperature 97.8 F 07/10/20 11:22 Pulse Rate 83 07/10/20 11:22 Respiratory Rate 14 07/10/20 11:22 Blood Pressure 143/99 H 07/10/20 11:22 Pulse Oximetry 98 07/10/20 11:22 PHYSICAL EXAMINATION: GENERAL: Awake and alert. HENT: Normocephalic. Ear canals patent. Oral mucosa is pink and moist. EYES: PERRLA, EOMIs, conjunctiva pink, sclera white, no periorbital swelling. NECK: Full ROM, no midline or spinal tenderness. CARDIOVASCULAR: S1 and S2 sounds normal. Regular rate and rhythm, no murmurs, clicks, or bruits. RESPIRATORY: Normal respiratory rate, trachea midline, airway patent. No stridor, nasal flaring or accessory muscle use. Lungs are clear in all garcia without wheeze, rhonchi, or crackles. MUSCULOSKELETAL: Normal gait and coordination. Equal tone and mass bilaterally. Equal strength bilaterally to upper and lower extremities. No spinal tenderness. EXTREMITIES: CMS intact. Moves all extremities. SKIN: Warm, dry, soft, appropriate color for ethnicity. No lesions, rashes, or wounds to visualized areas. NEURO: Alert and Oriented X 3. GCS: 15. Good coordination. No ataxia, or sensory deficits, or cognitive issues. Cranial Nerves: II: Visual garcia grossly intact. III & IV & : EOMIs V: Able to open and close jaw. VII: Facial movements symetrical. Able to close eyelids tightly. VIII: Hearing grossly intact, adequate balance. X: Uvula pronation intact. XI: Patient is able to shrug shoulders. XII: Patient is able to stick out tongue and move it side to side. PSYCH: Appropriate affect and mood. <Ashlyn Miguel DO - Last Filed: 07/11/20 09:54> Initial Vital Signs Initial Vital Signs: Vital Signs Temperature 97.8 F 07/10/20 11:22 Pulse Rate 83 07/10/20 11:22 Respiratory Rate 14 07/10/20 11:22 Blood Pressure 143/99 H 07/10/20 11:22 Pulse Oximetry 98 07/10/20 11:22 Scores <LUCAS An - Last Filed: 07/10/20 15:14> NIH Stroke Scale Level of Conciousness: Alert, keenly responsive Ask month/age: Answers both questions correctly. Open/close eyes, close hand: Performs both tasks correctly Best gaze horizontal: Normal Visual garcia: No visual loss Facial palsy: Normal symetrical movement Left arm drift: No drift for full 10 sec Right arm drift: No drift for full 10 sec Left leg drift: No drift for full 5 sec Right leg drift: No drift for full 5 sec Limb ataxia: Absent Sensory on face/arms/legs: Normal, no sensory loss Best language: No aphasia, normal Dysarthria: Normal Extinction or inattention: No abnormality Total NIH Stroke scale score: 0 Course <LUCAS An - Last Filed: 07/10/20 15:14> Course Course Narrative: APAP given, patient states headache still remains. Toradol and Benadryl given, she reports some improvement. Orders Ordered: Discontinued Medications Acetaminophen (Acetaminophen 325 Mg Tablet) 975 mg PO NOW ONE Stop: 07/10/20 11:45 Last Admin: 07/10/20 12:17 Dose: 975 mg Documented by: RANJIT Diphenhydramine HCl (Diphenhydramine 25 Mg Tablet) 25 mg PO NOW ONE Stop: 07/10/20 12:59 Last Admin: 07/10/20 13:10 Dose: 25 mg Documented by: RANJIT Ketorolac Tromethamine (Ketorolac 60 Mg/2 Ml Vial) 30 mg IM NOW ONE Stop: 07/10/20 12:59 Last Admin: 07/10/20 13:10 Dose: 30 mg Documented by: RANJIT Consultations Consultation #1: Patient staffed with Dr. Miguel, discussed test, test results, plan of care. Vital Signs Vital signs: Vital Signs - 8 hr 07/10/20 11:22 07/10/20 13:33 Temperature 97.8 F Pulse Rate 83 72 Respiratory Rate 14 Blood Pressure 143/99 H 144/91 H Pulse Oximetry 98 99 <Ashlyn Miguel DO - Last Filed: 07/11/20 09:54> Orders Ordered: Discontinued Medications Acetaminophen (Acetaminophen 325 Mg Tablet) 975 mg PO NOW ONE Stop: 07/10/20 11:45 Last Admin: 07/10/20 12:17 Dose: 975 mg Documented by: RANJIT Diphenhydramine HCl (Diphenhydramine 25 Mg Tablet) 25 mg PO NOW ONE Stop: 07/10/20 12:59 Last Admin: 07/10/20 13:10 Dose: 25 mg Documented by: RANJIT Ketorolac Tromethamine (Ketorolac 60 Mg/2 Ml Vial) 30 mg IM NOW ONE Stop: 07/10/20 12:59 Last Admin: 07/10/20 13:10 Dose: 30 mg Documented by: RANJIT Vital Signs Vital signs: Vital Signs - 8 hr 07/10/20 11:22 07/10/20 13:33 Temperature 97.8 F Pulse Rate 83 72 Respiratory Rate 14 Blood Pressure 143/99 H 144/91 H Pulse Oximetry 98 99 MDM - Headache <LUCAS An - Last Filed: 07/10/20 15:14> Medical Records Attestation: I reviewed the patient's medical records. Lab Data Attestation: I reviewed the patient's lab results. Imaging Data CT scan - head: Radiologist's Impression: Located Within [facility] [place] [id number] Scan ReportSigned Patient: Jenni Mitchell R#: [id number]: 1980Acct:[id number]/Sex: 39 / FDate of Service: 07/10/20Loc: EDAccession Number: [id number] Procedure: CT head/brain wo con Ordering Provider: Erlinda Hammond PROCEDURE: CT HEAD/BRAIN WO CON INDICATIONS: Headache with L eye double vision TECHNIQUE: Noncontrast 4.5 mm thick angled axial sections acquired from the foramen magnum to the vertex, with coronal and sagittal reformats. For radiation dose reduction, the following was used: automated exposure control, adjustment of mA and/or kV according to patient size. COMPARISON: Located Within [facility], CT, CT HEAD/BRAIN WO CON, 01/30/2020, 19:30. FINDINGS: Image quality: Excellent. CSF spaces: Basal cisterns are patent. No extra-axial fluid collections. Ventricles are normal in size and shape. Brain: No midline shift. No intracranial masses or hemorrhage. Joshua-white matter interface is normal. Skull and face: Calvarium and visualized facial bones are intact, without suspicious lesions. Sinuses: Visualized sinuses and mastoids are clear. IMPRESSION: No CT evidence of acute intracranial pathology. No significant changes from previous study. Dictated by: Beny Mcgee M.D. on 07/10/2020 at 12:26 Approved by: Beny Mcgee M.D. on 07/10/2020 at 12:27 [facility] Narrative Medical decision making narrative: 39-year-old female presents to the emergency department for headache behind her eyes and blurry vision to left eye with some double vision to left eye when she covers her right eye. She was by the clinic for head CT. Given patient's history, head CT was ordered which was negative. NIH 0, no other stroke like symptoms. Neuro exam intact which decreases suspicion for intracranial pathology. Given monocular diplopia I suspect this is most likely caused by a refractive error, additionally, double vision is not present unless she covers her right eye. Headache may be related to eye issues and or recent sinus congestion which is most likely viral. Patient did not report any relief with Tylenol, but did report some relief after administration of Toradol and Benadryl. Due to this and some reports of light sensitivity, this may also be related to a migraine in nature. Patient is hemodynamically stable, no acute distress. She was referred to Ophthalmology for further evaluation. Strict ED precautions given for new or worsening symptoms. She agreed to plan of care verbalized understanding. Discharge Plan Departure Patient Disposition: Home Clinical Impression: Headache Qualifiers: Headache type: unspecified Headache chronicity pattern: unspecified pattern Intractability: not intractable Qualified Code(s): R51.9 - Headache, unspecified Instructions: DI for Headache Activity Restrictions/Additional Instructions: Thank you for entrusting me with your care today. As discussed, your head CT is negative for any concerning findings. Your headaches may be related to recent sinus congestion and or the changes in your vision. I do recommend you follow-up with the psychologist engineering listed below, call their office today and schedule an appointment as soon as possible. Return emergency department for any new or worsening symptoms such as worsening vision, severe pain, uncontrollable vomiting, high fevers, or any other concerns. Prescriptions: No Action Mynatal 1 EACH capsule 1 cap PO DAILY Qty: 0 RF: 0 meclizine 25 mg tablet 25 mg PO TID PRN (Reason: dizziness) Qty: 10 RF: 0 phenazopyridine [Pyridium] 100 mg tablet 100 mg PO TID PRN (Reason: pain) Qty: 6 RF: 0 Referrals: Beverly Anton MD [Physician] - <Ashlyn Miguel DO - Last Filed: 07/11/20 09:54> Cosign ED Attending Demetriusature Attestation: I was immediately available in the department for consultation. Documentation has been reviewed. Patient case was reviewed with myself. Patient has multiple medical issues. There was concern for TIA but she has monocular diplopia that is more likely to be an acute neurologic event such as stroke or TIA and more likely to be Ophthalmology related, possibly a ophthalmologic migraine, refractory error or other cause, no suspicious changes for infection/sepsis that require antibiotics at this time. Patient's head CT. Labs do not show any acute abnormalities that would explain patient's symptoms. Patient's NIH is 0.
--- NOTE | 2020-07-10 11:54 | DI.CT.S_ITS ---
PROCEDURE: CT HEAD/BRAIN WO CON INDICATIONS: Headache with L eye double vision TECHNIQUE: Noncontrast 4.5 mm thick angled axial sections acquired from the foramen magnum to the vertex, with coronal and sagittal reformats. For radiation dose reduction, the following was used: automated exposure control, adjustment of mA and/or kV according to patient size. COMPARISON: [facility], CT, CT HEAD/BRAIN WO CON, 01/30/2020, 19:30. FINDINGS: Image quality: Excellent. CSF spaces: Basal cisterns are patent. No extra-axial fluid collections. Ventricles are normal in size and shape. Brain: No midline shift. No intracranial masses or hemorrhage. Joshua-white matter interface is normal. Skull and face: Calvarium and visualized facial bones are intact, without suspicious lesions. Sinuses: Visualized sinuses and mastoids are clear. IMPRESSION: No CT evidence of acute intracranial pathology. No significant changes from previous study. Dictated by: Beny Mcgee M.D. on 07/10/2020 at 12:26 Approved by: Beny Mcgee M.D. on 07/10/2020 at 12:27
[2020-07-10] MEDS: ACETAMINOPHEN 325 MG TABLET 975 MG PO (12:17)
[2020-07-10] MEDS: KETOROLAC 60 MG/2 ML VIAL 30 MG IM (13:10)
[2020-07-10] MEDS: diphenhydrAMINE 25 MG TABLET PO (13:10)
[2020-07-10 13:33] VITALS: BP 144/91; PULSE 72; O2SAT 99
== END 2020-07-10 13:34 | disposition home or self-care (01) ==
PROVIDERS: Emergency Provider Nurse Practitioner
DX: R51.9 Headache, unspecified (principal); R09.81 Nasal congestion; H53.8 Other visual disturbances; I10 Essential (primary) hypertension; Z79.82 Long term (current) use of aspirin
CPT/HCPCS: 70450; 96372; 99281; 99284; J1885

== ENCOUNTER 2020-09-07 15:49 | Emergency (ER) | payer MEDICAID, OTHER, SELFPAY ==
[2020-09-07 15:53] VITALS: BP 156/114; PULSE 88; RESP 16; TEMP 36.4; O2SAT 98; BMI 25.4
--- NOTE | 2020-09-07 15:54 | DI.RAD.S_ITS ---
PROCEDURE: XR ANKLE RT MIN 3V INDICATIONS: injured ankle TECHNIQUE: 3 views of the ankle were acquired. COMPARISON: None. FINDINGS: Bones: No fractures or dislocations. Ankle mortise is normally aligned. No suspicious bony lesions. Soft tissues: No tibiotalar joint effusion. Achilles tendon appears normal. IMPRESSION: No fracture. No osseous lesion. If symptoms and/or clinical suspicion for pathology persists, further assessment with repeat radiographs (7-10 days) or advanced imaging (e.g. CT, MRI or bone scan) should be considered. Dictated by: Marta Jones MD, PhD on 09/07/2020 at 16:18 Approved by: Marta Jones MD, PhD on 09/07/2020 at 16:20
--- NOTE | 2020-09-07 16:24 | ED.LOWEXIN ---
HPI - Extremity Injury (Lower) General Chief Complaint: Extremity Injury, Lower Stated Complaint: RIGHT FOOT INJURY UNABLE TO PUT PRESSURE ON IT Time Seen by Provider: 09/07/20 16:24 Source: patient Mode of arrival: Ambulatory Limitations: no limitations History of Present Illness HPI Narrative: Patient is a 40-year-old female here for evaluation of right ankle injury. Patient states that she missed a step and twisted her right ankle. She has been unable to put pressure on it since then. Describes pain throughout her right ankle. Has not tried anything for the symptoms prior to arrival. Related Data Home Medications Medication Instructions Recorded Confirmed Mynatal 1 cap PO DAILY #0 09/08/16 08/25/19 Previous Rx's Medication Instructions Recorded meclizine 25 mg PO TID PRN #10 tab 01/12/20 phenazopyridine [Pyridium] 100 mg PO TID PRN #6 tab 06/11/20 Allergies Allergy/AdvReac Type Severity Reaction Status Date / Time codeine Allergy Intermediate HIVES Verified 09/07/20 15:55 Review of Systems Constitutional Constitutional: Denies fever(s) Musculoskeletal Musculoskeletal: Denies tingling Comments: Right ankle pain Integumentary/Breasts Skin/Breast: Denies rash Neurologic Neurologic: Denies tingling Hematologic/Lymphatic On Anticoagulants: No Allergic/Immunologic Allergic/Immunologic: Denies urticaria Patient History Medical History AMA (advanced maternal age) multigravida 35+ Asthma (spontaneous vaginal delivery) Surgical History History of cholecystectomy (~2010) S/P dilatation and curettage (~04/11/19) S/P rhinoplasty (~2006) [place] teeth removed Family History Father Diabetes mellitus Hypertension Mother Pancreatic cancer Grandfather Hypertension Diabetes mellitus S/P triple vessel bypass Grandmother Cancer Grandfather No problems noted. Grandmother No problems noted. Social History marital status: household members: spouse and children education level: high school (10th Grade) occupational status: unemployed current occupational exposures/hazards: No special constantine needs: No Smoking Status: Never smoker substance use type: does not use Smoking Status: Never smoker alcohol intake frequency: other Substance Use Type: does not use Exam Initial Vital Signs Initial Vital Signs: Vital Signs Temperature 97.6 F 09/07/20 15:53 Pulse Rate 88 09/07/20 15:53 Respiratory Rate 16 09/07/20 15:53 Blood Pressure 156/114 H 09/07/20 15:53 Pulse Oximetry 98 09/07/20 15:53 Const General: cooperative Limitations: mental status not altered HENMT Head: normal to inspection and normocephalic Cardio Pulses: dorsalis pedis present on the right Skin Lesions: no lesions Rashes: no rashes Neuro Sensory Exam: no sensory deficits noted Extrem Other: Patient does not have proximal fibula tenderness. She does have tenderness throughout her right ankle with any palpation. Does not have any foot tenderness. Her toes are unremarkable. Procedures Orthopedic Splinting/Casting Injury #1: Side: right Lower Extremity Injury Location: ankle Lower Extremity Immobilizer: Randy wrap Other Orthopedic Equipment: crutches Post splinting neuro exam: no change Post splinting vascular exam: no change Placed by: Nursing Course Orders Ordered: ED Orders 09/07/20 15:54 XR ankle RT min 3V Stat Vital Signs Vital signs: Vital Signs - 8 hr 09/07/20 15:53 Temperature 97.6 F Pulse Rate 88 Respiratory Rate 16 Blood Pressure 156/114 H Pulse Oximetry 98 MDM - Extremity Injury (Lower) Imaging Data Extremity x-ray #1: Radiologist's Impression: [address] [id number] ReportSigned Patient: Jenni Mitchell R#: [id number]: 1980Acct:[id number]/Sex: 40 / FDate of Service: 09/07/20Loc: EDAccession Number: [id number] Procedure: XR ankle RT min 3V Ordering Provider: Jeronimo Mendoza D.O. PROCEDURE: XR ANKLE RT MIN 3V INDICATIONS: injured ankle TECHNIQUE: 3 views of the ankle were acquired. COMPARISON: None. FINDINGS: Bones: No fractures or dislocations. Ankle mortise is normally aligned. No suspicious bony lesions. Soft tissues: No tibiotalar joint effusion. Achilles tendon appears normal. IMPRESSION: No fracture. No osseous lesion. If symptoms and/or clinical suspicion for pathology persists, further assessment with repeat radiographs (7-10 days) or advanced imaging (e.g. CT, MRI or bone scan) should be considered. Dictated by: Marta Jones MD, PhD on 09/07/2020 at 16:18 Approved by: Marta Jones MD, PhD on 09/07/2020 at 16:[address] [facility] Narrative Medical decision making narrative: Neurovascularly intact, no fractures on the x-rays, was given an Randy bandage and crutches for comfort. Was given return precautions and follow-up instructions. She expressed understanding and agreement. Discharge Plan Departure Patient Disposition: Home Clinical Impression: Ankle sprain and strain Instructions: How to Use Crutches, DI for Ankle Sprain, How To Perform RICE (Rest, Ice, Compress, Elevate), How to Apply an Elastic Wrap on Ankle Activity Restrictions/Additional Instructions: There were no fractures seen on the x-rays. Be sure to keep your ankle elevated and iced. You can use Tylenol and/or ibuprofen for any discomfort. Use the crutches for your comfort. Return to the emergency department for any new or worsening symptoms Prescriptions: No Action Mynatal 1 EACH capsule 1 cap PO DAILY Qty: 0 RF: 0 meclizine 25 mg tablet 25 mg PO TID PRN (Reason: dizziness) Qty: 10 RF: 0 phenazopyridine [Pyridium] 100 mg tablet 100 mg PO TID PRN (Reason: pain) Qty: 6 RF: 0
== END 2020-09-07 16:43 | disposition home or self-care (01) ==
PROVIDERS: Emergency Provider Emergency Medicine
DX: S93.401A Sprain of unspecified ligament of right ankle, initial encounter (principal); X50.1XXA Overexertion from prolonged static or awkward postures, initial encounter
CPT/HCPCS: 73610; 99282; 99283

== ENCOUNTER → 2020-10-11 14:59 | Outpatient (CLI) | payer MEDICAID, OTHER, SELFPAY ==
--- NOTE | 2020-10-11 15:28 | PM.TREADMILL ---
Cardiac Stress Test Report Referral & Results Date Patient Seen: 10/11/20 Time Patient Seen: 15:28 Requesting provider: Pipe Bruner Indication: palpitations Rest ECG: Sinus rhythm Procedure Note: Standard Juan protocol, 3:03 mins, 3.3 METS Markedly reduced exercise capacity, IGNACIO +62% Accelerated heart response to exercise, max HR 161, target HR was 153 No chest pain or anginal symptoms Nonspecific ST depression in V3-V6; no ectopy Test stopped due to report of lightheadedness and paleness in color, symptoms improved in recovery. Impression: Equivocal exercise stress test Please note: Actual ECG tracings can be found in the PACS system.
--- NOTE | 2020-10-11 19:28 | DI.NM.S_ITS ---
DATE OF SERVICE: 10/11/2020 PROCEDURE: Exercise stress test. INDICATION: Exertional palpitation. CARDIAC STRESS: The patient underwent exercise stress test under the supervision of an attending staff. She walked on Juan protocol for 3 minutes 03 seconds and achieved a maximum heart rate of 161, which was 89 percent of target heart rate. Resting blood pressure 122/86 and peak blood pressure 144/96. The patient achieved 4.6 METs of workload. Functional aerobic impairment positive 62 percent. No chest pain or anginal symptoms, but felt lightheadedness and paleness in her color, hence exercise stress test was discontinued. Her color got improved in recovery, as well as lightheadedness. Baseline EKG revealed sinus rhythm and heart rate was about 96. During stress, no convincing ischemic changes or significant arrhythmias, other than sinus tachycardia. CONCLUSION: 1. Exercise stress test is negative for inducible ischemia. 2. Enhanced chronotropic response. Within 3 minutes, the patient achieved maximum heart rate of 161, which was 89 percent of target heart rate. There were no significant arrhythmias, other than sinus tachycardia. Diastolic blood pressure increased from 86 baseline to 96 at peak and systolic blood pressure from 122 mmHg to 144 mmHg. Heart rate decreased slowly in late recovery. Even after 7 minutes of recovery, heart rate was more than 100, up to 107 beats per minute. Jenni Mitchell - Kandace/brigid doc#: [id number]/job#: [id number] dd: 10/11/2020 16:50:00 dt: 10/11/2020 18:45:00 DICTATING MD/COPIES TO: Pedro Chery MD COPIES MNE: KIANNA;
== END ==
PROVIDERS: PCP Physician Assistant; Referring Provider Physician Assistant; Visit Provider Physician Assistant
DX: R00.2 Palpitations (principal)
CPT/HCPCS: 93017

== ENCOUNTER → 2020-10-16 17:53 | Outpatient (CLI) | payer MEDICAID, OTHER, SELFPAY ==
--- NOTE | 2020-10-16 | DI.RAD.S_ITS ---
PROCEDURE: XR ANKLE RT MIN 3V INDICATIONS: acute right ankle pain TECHNIQUE: 3 views of the ankle were acquired. COMPARISON: [facility], CR, XR ANKLE RT MIN 3V, 09/07/2020, 16:02. FINDINGS: Bones: No fractures or dislocations. Ankle mortise is normally aligned. No suspicious bony lesions. Soft tissues: No tibiotalar joint effusion. Achilles tendon appears normal. IMPRESSION: Negative examination. If the patient's pain or other symptoms persist, consider further evaluation with MRI Dictated by: Ryan Campos M.D. on 10/17/2020 at 10:23 Approved by: Ryan Campos M.D. on 10/17/2020 at 10:24
--- NOTE | 2020-10-16 | DI.RAD.S_ITS ---
PROCEDURE: XR TIBIA FUBULA RT 2V INDICATIONS: Acute right ankle pain TECHNIQUE: 2 views of the tibia and fibula were acquired. COMPARISON: None. FINDINGS: Bones: No fractures or dislocations. No suspicious bony lesions. Soft tissues: No suspicious soft tissue calcifications or masses. IMPRESSION: Negative examination. Dictated by: Ryan Campos M.D. on 10/17/2020 at 10:53 Approved by: Ryan Campos M.D. on 10/17/2020 at 10:54
== END ==
PROVIDERS: PCP Physician Assistant; Referring Provider Family Medicine; Visit Provider Family Medicine
DX: M25.571 Pain in right ankle and joints of right foot (principal)
CPT/HCPCS: 73590; 73610

== ENCOUNTER 2020-11-20 01:10 | Emergency (ER) | payer MEDICAID, OTHER, SELFPAY ==
[2020-11-20] VITALS (8 sets, daily range): BP systolic 134–154; BP diastolic 85–100; PULSE 83–96; RESP 14–16; TEMP 36–36.7; O2SAT 97–100; BMI 25.7
--- NOTE | 2020-11-20 01:20 | ED_ITS ---
HPI - Neuro Symptoms/Deficit General Chief Complaint: Neuro Symptoms/Deficit Stated Complaint: hypertention Time Seen by Provider: 11/20/20 01:13 Source: patient and EMS Mode of arrival: EMS Limitations: no limitations History of Present Illness HPI Narrative: 40-year-old female nonsmoker with history of hypertension, multiple sinus surgeries and prior ischemic stroke presents by EMS with a chief complaint of not feeling great over the course of the day. It is unclear exactly when her symptoms started but it seems like it has been much of the day and is included a gradual rise in her blood pressure, generalized vague headache, nausea and vomiting and some tingling in her left greater than right hands. She denies any blurred vision or trouble speech. She denies any upper extremity weakness. She denies chest pain or shortness of breath. She denies any abdominal pain. She denies any recent change in her dosing regimen of antihypertensives nor any dietary change. She has had no recent trauma or inju ry nor any fever or chills. She has not activated as a code stroke as she does not have any clear time of onset nor any large unilateral findings consistent with large vessel occlusion Location: left arm History of same: Yes Severity: mild Quality: tingling Exacerbating factors: none Context: gradual onset On Anticoagulants: No Associated symptoms: denies other symptoms Related Data Home Medications Medication Instructions Recorded Confirmed Mynatal 1 cap PO DAILY #0 09/08/16 08/25/19 Previous Rx's Medication Instructions Recorded meclizine 25 mg PO TID PRN #10 tab 01/12/20 phenazopyridine [Pyridium] 100 mg PO TID PRN #6 tab 06/11/20 Allergies Allergy/AdvReac Type Severity Reaction Status Date / Time codeine Allergy Intermediate HIVES Verified 09/07/20 15:55 Review of Systems Constitutional Constitutional: Denies chills, Denies fatigue, Denies fever(s), Denies frequent falls, Denies lethargy and Denies weakness Eyes Eyes: Denies change in vision, Denies eye discharge, Denies irritation and Den ies loss of vision ENT Ears, Nose, Mouth, and Throat: Denies change in voice, Denies dizziness, Denies neck pain, Denies sore throat and Denies throat swelling Cardiovascular Cardiovascular: Denies chest pain, Denies irregular heart rhythm, Denies lightheadedness, Denies palpitations, Denies dyspnea, Denies dyspnea on exertion and Denies orthopnea Respiratory Respiratory: Denies cough, Denies dyspnea, Denies dyspnea on exertion and Denies wheezing Gastrointestinal Gastrointestinal: Denies abdominal pain, Denies change in bowel habits, Denies diarrhea, Reports nausea and Denies vomiting Musculoskeletal Musculoskeletal: Denies neck pain and Reports numbness Integumentary/Breasts Skin/Breast: Denies pruritus, Denies erythema, Denies rash and Denies wounds Neurologic Neurologic: Denies behavioral changes, Denies confusion, Denies dizziness, Denies frequent falls, Denies loss of vision, Reports numbness and Denies weakne ss Psychiatric Psychiatric: Denies anxiety, Denies behavioral changes, Denies confusion, Denies depression, Denies homicidal ideation and Denies suicidal ideation Endocrine Endocrine: Denies fatigue, Denies flushing and Denies palpitations Hematologic/Lymphatic Hematologic/Lymphatic: Denies easy bruising On Anticoagulants: No Allergic/Immunologic Allergic/Immunologic: Denies urticaria, Denies throat swelling and Denies wheezing Patient History Medical History (Updated 11/20/20 @ 04:01 by aDnial Youssef DO) AMA (advanced maternal age) multigravida 35+ Asthma (spontaneous vaginal delivery) Surgical History History of cholecystectomy (~2010) S/P dilatation and curettage (~04/11/19) S/P rhinoplasty (~2006) [place] teeth removed Family History Father Diabetes mellitus Hypertension Mother Pancreatic cancer Grandfather Hypertension Diabetes mellitus S/P triple vessel bypass Grandmother Cancer Grandfather No problems noted. Grandmother No problems noted. Social History marital status: household members: spouse and children education level: high school (10th Grade) occupational status: unemployed current occupational exposures/hazards: No special constantine needs: No Smoking Status: Never smoker substance use type: does not use Smoking Status: Never smoker alcohol intake frequency: other Substance Use Type: does not use Exam Narrative Exam Narrative: GENERAL: [] 40 year old patient appears stated age. Well- developed patient, in mild distress. Anxious and tearful HEAD: Atraumatic. Normocephalic. EYES: Pupils equal round and reactive. Extraocular motions intact. No scleral icterus. No injection or drainage. ENT: Nose without bleeding, purulent drainage. Throat without erythema, tonsillar hypertrophy or exudate. Airway patent. NECK: Trachea midline. Non tender CARDIOVASCULAR: Regular rate and rhythm without murmurs, gallops, or rubs. RESPIRATORY: Clear to auscultation. Breath sounds equal bilaterally. No wheezes, rales, or rhonchi. GASTROINTESTINAL: Abdomen soft, non-tender, nondistended. EXTREMITIES: No edema or joint tenderness. BACK: Nontender without deformity or crepitance. No flank tenderness. NEURO: AOx3. SKIN: No rash or erythema of visible areas Initial Vital Signs Initial Vital Signs: Vital Signs Temperature 98.1 F 11/20/20 01:29 Pulse Rate 95 H 11/20/20 01:29 Respiratory Rate 14 11/20/20 01:29 Blood Pressure 154/100 H 11/20/20 01:29 Pulse Oximetry 97 11/20/20 01:29 Scores NIH Stroke Scale Level of Conciousness: Alert, keenly responsive Ask month/age: Answers both questions correctly. Open/close eyes, close hand: Performs both tasks correctly Best gaze horizontal: Normal Visual garcia: No visual loss Facial palsy: Normal symetrical movement Left arm drift: No drift for full 10 sec Right arm drift: No drift for full 10 sec Left leg drift: No drift for full 5 sec Right leg drift: No drift for full 5 sec Limb ataxia: Absent Sensory on face/arms/legs: Mild to moderate sensory loss, can tell touch Best language: No aphasia, normal Dysarthria: Normal Extinction or inattention: No abnormality Total NIH Stroke scale score: 1 Course Orders Ordered: ED Orders 11/20/20 01:[address] angio head and neck Stat Basic Metabolic Panel Stat Complete Blood Count AUTO DIFF Stat Troponin & CK Cardiac Panel Stat Urine Drug Screen, Rapid Stat EKG-12 Lead Stat 11/20/20 02:26 Urinalysis and Microscopic Stat Discontinued Medications Sodium Chloride (Normal Saline 0.9%) 1,000 mls @ 150 mls/hr IV CONT MAYANK Last Admin: 11/20/20 02:57 Dose: Not Given Documented by: TK Vital Signs Vital signs: Vital Signs - 8 hr 11/20/20 01:29 11/20/20 03:42 11/20/20 03:50 Temperature 98.1 F Pulse Rate 95 H 96 H 90 Respiratory Rate 14 Blood Pressure 154/100 H 134/94 H 135/95 H Pulse Oximetry 97 98 100 11/20/20 04:00 11/20/20 04:01 11/20/20 04:10 Temperature Pulse Rate 88 89 91 H Respiratory Rate Blood Pressure 143/85 H 135/89 Pulse Oximetry 100 100 100 11/20/20 04:20 11/20/20 04:24 Temperature 96.8 F L Pulse Rate 83 83 Respiratory Rate 16 Blood Pressure 135/89 Pulse Oximetry 98 98 MDM - Neuro Symptoms/Deficit Lab Data Result diagrams: 11/20/20 01:23 11/20/20 01:23 Labs: Lab Results 11/20/20 11/20/20 Range/Units 01:23 01:23 WBC 11.6 H (4.5-11.0) X10^3/uL RBC 4.57 (4.0-5.2) X10^6/uL Hgb 12.8 (12.0-16.0) g/dL Hct 39.1 (36-46) % MCV 85.6 (80-100) fL MCH 28.0 (26-34) PG MCHC 32.7 (30-36) % RDW 13.3 (11.6-14.8) % Plt Count 423 H (150-400) X10^3/uL Neut % (Auto) Not Reportable Lymph % (Auto) Not Reportable [place] % (Auto) Not Reportable Eos % (Auto) Not Reportable Baso % (Auto) Not Reportable Lymph # (Auto) Not Reportable [place] # (Auto) Not Reportable Baso # (Auto) Not Reportable Total Counted 100 Seg Neutrophils % 59.0 (38-70) % Band Neutrophils % 2.0 L (3-7) % Lymphocytes % (Manual) 31.0 (25-45) % Monocytes % (Manual) 3.0 (2-11) % Eosinophils % (Manual) 2.0 (2-4) % Basophils % (Manual) 2.0 H (0-1) % Myelocytes % 1.0 H (-0) % Neutrophils # (Manual) 7076 H (9040-2278) /uL RBC Morphology Normal morphology Sodium 139 (137-145) mmol/L Potassium 3.8 (3.4-5.1) mmol/L Chloride 109 H (98-107) mmol/L Carbon Dioxide 20 L (22-32) mmol/L BUN 8 (7-17) mg/dL Creatinine 0.69 (0.52-1.04) mg/dL Estimated GFR > 60.0 (>60) mL/min BUN/Creatinine Ratio 11.6 (6-22) Glucose 106 H (70-100) mg/dL Calcium 9.1 (8.4-10.2) mg/dL Total Creatine Kinase 88 (30-135) U/L CK-MB (CK-2) TNP CK-MB (CK-2) Rel Index TNP Troponin I < 0.012 (0.01-0.034) ng/mL Imaging Data CT scan - head: Radiologist's Impression: No stroke CTA Head/Neck: Radiologist's Impression: No acute findings MDM Narrative Medical decision making narrative: Patient presents with blood pressure in the 200s, nausea and some left upper extremity tingling. Over the course of the vi sit, without any intervention her blood pressure normalizes into the 130s and 120s and patient has a complete resolution of symptoms. She no longer has any the symptoms that brought her in. Images have been interpreted and are unremarkable, labs are unremarkable. Return precautions have been given and questions answered to her apparent satisfaction Discharge Plan Departure Patient Disposition: Home Clinical Impression: Hypertension Qualifiers: Hypertension type: essential hypertension Qualified Code(s): I10 - Essential (primary) hypertension Instructions: Essential Hypertension Activity Restrictions/Additional Instructions: *You have been diagnosed with [hypertension with left arm tingling resolved] *What to do: *Please continue to take your regular medications as directed. [ ] New medication prescriptions sent to your pharmacy: [ ] [ ] New medication written as a paper prescription [x ] No new medications given *Please follow up with your primary care provider in 2-3 days, call for an appointment. Let them know you were seen in the Emergency Department and that we ask that you be seen in follow up. We will electronically transmit a record of today's note if your PCP is in our system *If you do not have a primary care provider please contact the [facility] Resource line at [phone]. They will ask some questions about your medical history and help get you set up with a doctor in the community. *Return to Emergency Department if you should have any new, worsening or concerning symptoms, such as [fever greater than 101 F, shaking chills, worsening pain, persistent vomiting or other bothersome symptoms] Prescriptions: No Action Mynatal 1 EACH capsule 1 cap PO DAILY Qty: 0 RF: 0 meclizine 25 mg tablet 25 mg PO TID PRN (Reason: dizziness) Qty: 10 RF: 0 phenazopyridine [Pyridium] 100 mg tablet 100 mg PO TID PRN (Reason: pain) Qty: 6 RF: 0 Referrals: Pipe Bruner PA-C [Primary Care Provider] -
--- NOTE | 2020-11-20 01:23 | DI.CT.S_ITS ---
PROCEDURE: CT STROKE INDICATIONS: left arm tingling, history of stroke and tpa TECHNIQUE: Noncontrast 4.5 mm thick angled axial sections acquired from the foramen magnum to the vertex, with coronal reformats. For radiation dose reduction, the following was used: automated exposure control, adjustment of mA and/or kV according to patient size. COMPARISON: [facility], CT, CT HEAD/BRAIN WO CON, 07/10/2020, 12:14. [facility], CT, CT ANGIO HEAD AND NECK, 05/21/2020, 17:24. [facility], CT, CT STROKE, 05/21/2020, 17:18. [facility], CT, CT HEAD/BRAIN WO CON, 01/30/2020, 19:30. FINDINGS: Image quality: Excellent. CSF spaces: Basal cisterns are patent. No extra-axial fluid collections. Ventricles are normal in size and shape. Brain: No midline shift. No intracranial masses or hemorrhage. Joshua-white matter interface is normal. Borderline cerebellar ectopia stable compared to prior exams. Skull and face: Calvarium and visualized facial bones are intact, without suspicious lesions. Sinuses: Visualized sinuses are clear. Postsurgical changes compatible with left canal wall up partial mastoidectomy. IMPRESSION: No acute intracranial disease process. This study fulfills neurological imaging criteria for inclusion or exclusion of acute stroke therapies based on available published neurological imaging guidelines. Dictated by: Marta Jones MD, PhD on 11/20/2020 at 7:18 Approved by: Marta Jones MD, PhD on 11/20/2020 at 7:22
--- NOTE | 2020-11-20 01:23 | DI.CT.S_ITS ---
PROCEDURE: CT ANGIO HEAD AND NECK INDICATIONS: left arm tingling, history of stroke and tpa TECHNIQUE: After the administration of intravenous contrast, 1 mm thick sections acquired from the aortic arch through the [place]. Post-contrast 4.5 mm thick sections then re-acquired from the foramen magnum to the vertex. 3-dimensional jtzcymd-trhgeoyfw-shruumfgut (MIP) and/or volume rendering reformats were acquired of the central intracranial vasculature and neck separately. COMPARISON: [facility], CT, CT STROKE, 11/20/2020, 1:31. FINDINGS: Image quality: Excellent. BRAIN: CSF spaces: Ventricles are normal in size and shape. Basal cisterns are patent. No extra-axial fluid collections. Brain: No midline shift. No intracranial bleeds or masses. Joshua-white matter interface appears intact. Skull and face: Calvarium and facial bones appear intact, without suspicious lesions. Orbits appear normal. Sinuses: Sinuses and mastoids are clear. HEAD CT ANGIOGRAPHY: Anterior circulation: Intracranial internal carotid arteries are normal in size and flow. The flow within the paired anterior cerebral arteries is normal and symmetric. The flow within the middle cerebral arteries is normal and symmetric. The anterior communicating artery is seen. No aneurysms are seen. Posterior circulation: Visualized portions of the vertebral arteries demonstrate normal caliber, and join to form a normal appearing basilar artery. Flow within the posterior cerebral arteries is normal and symmetric. No aneurysms are seen. Dural sinuses demonstrate normal postcontrast enhancement. NECK CT ANGIOGRAPHY: Carotid system: The great vessels demonstrate a conventional anatomy as they arise from the aortic arch. The origins of the common carotid arteries appear patent. The common carotid arteries demonstrate normal caliber and courses. The bifurcation regions are both widely patent. The internal carotid arteries demonstrate normal calibers and courses. Posterior circulation: The origins of the vertebral arteries both appear widely patent. The more superior extracranial portions of both vertebral arteries also demonstrate normal courses and calibers. They join to form a normal appearing basilar artery. Soft tissues: Visualized neck soft tissues demonstrate no suspicious abnormalities. Bones: No suspicious bony lesions. Visualized cervical spine appears normally aligned. IMPRESSION: 1. No acute intracranial disease process. 2. No large vessel occlusion, vascular stenosis, vascular dissection or aneurysm. Any quantitative measurements of stenosis were performed using NASCET criteria. Dictated by: Marta Jones MD, PhD on 11/20/2020 at 7:46 Approved by: Marta Jones MD, PhD on 11/20/2020 at 7:53
[2020-11-20 01:38] LABS: BUN Creatinine Ratio 11.6 (6-22); Blood Urea Nitrogen 8 mg/dL (7-17); Calcium 9.1 mg/dL (8.4-10.2); Carbon Dioxide 20 mmol/L (22-32); Chloride 109 mmol/L (98-107); Creatine Kinase 88 U/L (30-135); Estimated Glomerular Filt Rate > 60.0 mL/min (>60); Glucose 106 mg/dL (70-100); HEMOLYSIS < 15 (0-50); Potassium 3.8 mmol/L (3.4-5.1); Sodium 139 mmol/L (137-145)
[2020-11-20 01:46] LABS: Add Manual Diff / Slide Review YES; Hematocrit 39.1 % (36-46); Hemoglobin 12.8 g/dL (12.0-16.0); Mean Corpuscular HGB Conc 32.7 % (30-36); Mean Corpuscular Volume 85.6 fL (80-100); Platelet Count 423 X10^3/uL (150-400); Red Blood Cell Count 4.57 X10^6/uL (4.0-5.2); Red Cell Distribution Width 13.3 % (11.6-14.8); White Blood Cell Count 11.6 X10^3/uL (4.5-11.0)
[2020-11-20 01:50] LABS: Troponin I < 0.012 ng/mL (0.01-0.034)
[2020-11-20 03:42] LABS: Neutrophils Absolute Manual 7076 /uL (3000-5900); Total Cells Counted 100
[2020-11-20 03:43] LABS: RBC Morphology Normal Morphology
== END 2020-11-20 04:26 | disposition home or self-care (01) ==
PROVIDERS: Emergency Provider Emergency Medicine; PCP Physician Assistant
DX: I10 Essential (primary) hypertension (principal); R20.2 Paresthesia of skin; Z86.73 Personal history of transient ischemic attack (TIA), and cerebral infarction without residual deficits
CPT/HCPCS: 36415; 70450; 70496; 70498; 80048; 82550; 84484; 85007; 85025; 93005; 93010; 99285; Q9967

== ENCOUNTER 2021-03-30 16:25 | Emergency (ER) | payer MEDICAID, OTHER, SELFPAY ==
[2021-03-30 16:30] VITALS: BP 180/103; PULSE 96; RESP 17; TEMP 36.4; O2SAT 100; BMI 27.3
--- NOTE | 2021-03-30 16:33 | DI.RAD.S_ITS ---
PROCEDURE: XR KNEE RT 3V INDICATIONS: fall TECHNIQUE: 3 views of the knee were acquired. COMPARISON: None. FINDINGS: Bones: No fractures or dislocations. No suspicious bony lesions. Soft tissues: No joint effusion. No suspicious soft tissue calcifications. IMPRESSION: Unremarkable knee radiographs. Dictated by: Otis Burroughs D.O. on 03/30/2021 at 15:56 Approved by: Otis Burroughs D.O. on 03/30/2021 at 15:57
--- NOTE | 2021-03-30 17:00 | ED.LOWEXIN ---
HPI - Extremity Injury (Lower) <Bobby Street PA-C - Last Filed: 03/30/21 20:06> General Chief Complaint: Extremity Injury, Lower Stated Complaint: hurt knee,RT Time Seen by Provider: 03/30/21 16:30 Source: patient Mode of arrival: Ambulatory History of Present Illness HPI Narrative: Jenni presents today with chief complaint of right knee pain that started yesterday evening. She reports that she was decorating for Halloween and fell backwards into a hole in the ground. This caused her to twist her right knee. Since then, she has had increased pain with movement of her right knee but is able to walk on it. She denies any significant swelling, redness, fever, numbness, or any other injuries or acute concerns at this time. Related Data Home Medications Medication Instructions Recorded Confirmed vitamin-ferrous fumarate 1 cap PO DAILY #0 09/08/16 08/25/19 65 mg iron-folic acid 1 mg capsule (Mynatal) Previous Rx's Medication Instructions Recorded meclizine 25 mg tablet 25 mg PO TID PRN #10 tab 01/12/20 phenazopyridine 100 mg tablet 100 mg PO TID PRN #6 tab 06/11/20 (Pyridium) Allergies Allergy/AdvReac Type Severity Reaction Status Date / Time codeine Allergy Intermediate HIVES Verified 03/30/21 16:32 Review of Systems <Bobby Street PA-C - Last Filed: 03/30/21 20:06> Review of Systems Narrative: As per HPI Patient History <Bobby Street PA-C - Last Filed: 03/30/21 20:06> Medical History (Updated 03/30/21 @ 17:[address] PA-C) AMA (advanced maternal age) multigravida 35+ Asthma (spontaneous vaginal delivery) Surgical History History of cholecystectomy (~2010) S/P dilatation and curettage (~04/11/19) S/P rhinoplasty (~2006) [place] teeth removed Family History Father Diabetes mellitus Hypertension Mother Pancreatic cancer Grandfather Hypertension Diabetes mellitus S/P triple vessel bypass Grandmother Cancer Grandfather No problems noted. Grandmother No problems noted. Social History marital status: household members: spouse and children education level: high school (10th Grade) occupational status: unemployed current occupational exposures/hazards: No special constantine needs: No Smoking Status: Never smoker substance use type: does not use Smoking Status: Never smoker alcohol intake frequency: other Substance Use Type: does not use Exam <Bobby Street PA-C - Last Filed: 03/30/21 20:06> Narrative Exam Narrative: Exam Narrative: Const General: cooperative, healthy appearing, comfortable, no acute distress, well developed and well groomed Nutritional Appearance: average body habitus Orientation: alert and oriented x3 HENMT Head: normal to inspection and atraumatic Ears: hearing grossly normal bilaterally Nose: external nose normal and nares normal Face and sinus: normal facial exam Neck Neck: normal visual inspection and supple Resp Effort & Inspection: normal respiratory effort, able to speak in complete sentences, no audible wheezes, not labored, no nasal flaring and no respiratory distress Neuro General: alert, oriented x3, gait normal, tone normal and moves all extremities Cognition: normal cognition Speech: speech normal Gait: normal gait Extremities Lower extremities exposed. Slight joint effusion noted of right knee. No overlying skin abnormalities. Intact range of motion. Soft tissue tenderness to the lateral aspect of the patella. No significant bony tenderness. No calf tenderness or swelling. Distal sensation is intact. Psych Appearance: grossly normal and well kempt Mental Status: mental status grossly normal Speech and Movement: speech and movement normal Mood: congruent mood Affect: normal affect Initial Vital Signs Initial Vital Signs: Vital Signs Temperature 97.6 F 03/30/21 16:30 Pulse Rate 96 H 03/30/21 16:30 Respiratory Rate 17 03/30/21 16:30 Blood Pressure 180/103 H 03/30/21 16:30 Pulse Oximetry 100 03/30/21 16:30 <Patricia Hurtado DO - Last Filed: 03/30/21 22:32> Initial Vital Signs Initial Vital Signs: Vital Signs Temperature 97.6 F 03/30/21 16:30 Pulse Rate 96 H 03/30/21 16:30 Respiratory Rate 17 03/30/21 16:30 Blood Pressure 180/103 H 03/30/21 16:30 Pulse Oximetry 100 03/30/21 16:30 Course <Bobby Street PA-C - Last Filed: 03/30/21 20:06> Orders Ordered: ED Orders 03/30/21 16:33 XR knee RT 3V Stat Discontinued Medications Ketorolac Tromethamine (Ketorolac 30 Mg/Ml Vial) 30 mg IM NOW ONE Stop: 03/30/21 17:03 Last Admin: 03/30/21 17:12 Dose: 30 mg Documented by: CHALINO Vital Signs Vital signs: Vital Signs - 8 hr 03/30/21 16:30 03/30/21 17:18 Temperature 97.6 F 98 F Pulse Rate 96 H 75 Respiratory Rate 17 18 Blood Pressure 180/103 H 180/103 H Pulse Oximetry 100 99 <Patricia Hurtado DO - Last Filed: 03/30/21 22:32> Orders Ordered: ED Orders 03/30/21 16:33 XR knee RT 3V Stat Discontinued Medications Ketorolac Tromethamine (Ketorolac 30 Mg/Ml Vial) 30 mg IM NOW ONE Stop: 03/30/21 17:03 Last Admin: 03/30/21 17:12 Dose: 30 mg Documented by: CHALINO Vital Signs Vital signs: Vital Signs - 8 hr 03/30/21 16:30 03/30/21 17:18 Temperature 97.6 F 98 F Pulse Rate 96 H 75 Respiratory Rate 17 18 Blood Pressure 180/103 H 180/103 H Pulse Oximetry 100 99 MDM - Extremity Injury (Lower) <Bobby Street PA-C - Last Filed: 03/30/21 20:06> MDM Narrative Medical decision making narrative: No obvious bony injury noted on x-ray or joint effusions. Physical examination is suggestive of mild patellar effusion. We will treat as a sprain/strain 1st with return precautions discussed. Patient verbalizes understanding and agrees to plan and has no further concerns at this time. Thank you A [id number] system was used with the dictation of this note. Please disregard any spelling or grammatical errors. Discharge Plan Departure Patient Disposition: Home Clinical Impression: Strain of right knee Qualifiers: Encounter type: initial encounter Qualified Code(s): S86.911A - Strain of unspecified muscle(s) and tendon(s) at lower leg level, right leg, initial encounter Instructions: DI for Knee Sprain Activity Restrictions/Additional Instructions: Recommend treating this like a strain with rest, ice, compression and elevation with light range of motion and activity. Use of NSAIDs or acetaminophen as needed for pain management. If in 1-2 weeks she is still having significant discomfort, MRI or formal physical therapy evaluation may be indicated. Follow-up with PCP for further management. Thank you Bobby Street PA-C Prescriptions: No Action Mynatal 1 EACH capsule 1 cap PO DAILY Qty: 0 RF: 0 meclizine 25 mg tablet 25 mg PO TID PRN (Reason: dizziness) Qty: 10 RF: 0 phenazopyridine [Pyridium] 100 mg tablet 100 mg PO TID PRN (Reason: pain) Qty: 6 RF: 0 Referrals: Pipe Bruner PA-C [Primary Care Provider] - <Patricia Hurtado DO - Last Filed: 03/30/21 22:32> Cosign ED Attending Demetriusature Attestation: I was immediately available in the department for consultation. Documentation has been reviewed. I agree with assessment and plan.
[2021-03-30] MEDS: KETOROLAC 30 MG/ML VIAL IM (17:12)
[2021-03-30 17:18] VITALS: BP 180/103; PULSE 75; RESP 18; TEMP 36.6; O2SAT 99
== END 2021-03-30 17:19 | disposition home or self-care (01) ==
PROVIDERS: Emergency Provider Physician Assistant; PCP Physician Assistant
DX: S86.911A Strain of unspecified muscle(s) and tendon(s) at lower leg level, right leg, initial encounter (principal); W19.XXXA Unspecified fall, initial encounter
CPT/HCPCS: 73562; 96372; 99283; J1885

== ENCOUNTER 2021-10-14 17:20 | Emergency (ER) | payer MEDICAID, OTHER, SELFPAY ==
[2021-10-14 17:41] VITALS: BP 147/94; PULSE 81; RESP 22; TEMP 36.9; O2SAT 96
[2021-10-14] MEDS: PROPARACAINE 0.5% OPHTH SOL 1 DROPS EYE-RIGHT (19:20)
== END 2021-10-14 20:02 | disposition left against medical advice (07) ==
PROVIDERS: Emergency Provider Emergency Medicine; PCP Physician Assistant
DX: H57.11 Ocular pain, right eye (principal)
CPT/HCPCS: 99282

== ENCOUNTER 2022-02-06 20:36 | Emergency (ER) | payer MEDICAID, OTHER, SELFPAY ==
[2022-02-06 20:37] VITALS: BP 174/104; PULSE 71; RESP 16; TEMP 36.7; O2SAT 96; BMI 27.3
--- NOTE | 2022-02-06 20:51 | DI.RAD.S_ITS ---
PROCEDURE: XR ELBOW RT MIN 3V INDICATIONS: fall. R arm injury TECHNIQUE: 3 views of the elbow were acquired. COMPARISON: None. FINDINGS: Bones: No fractures or dislocations. No suspicious bony lesions. Soft tissues: No elbow joint effusion. No suspicious soft tissue calcifications. IMPRESSION: 1. No fracture or dislocation. Dictated by: Harris Ahmadi M.D. on 02/06/2022 at 22:23 Approved by: Harris Ahmadi M.D. on 02/06/2022 at 22:23
--- NOTE | 2022-02-06 20:52 | DI.RAD.S_ITS ---
PROCEDURE: XR SHOULDER RT MIN 2V INDICATIONS: fall. R arm injury TECHNIQUE: 2 views of the shoulder were acquired. COMPARISON: None. FINDINGS: Bones: No fractures or dislocations. There is mild acromioclavicular joint degeneration. No suspicious bony lesions. Visualized ribs appear intact. Soft tissues: No suspicious soft tissue calcifications. IMPRESSION: 1. No fracture or dislocation. Dictated by: Harris Ahmadi M.D. on 02/06/2022 at 22:23 Approved by: Harris Ahmadi M.D. on 02/06/2022 at 22:24
--- NOTE | 2022-02-06 20:58 | ED.UPPEXIN ---
HPI - Extremity Injury (Upper) General Chief Complaint: Extremity Injury, Upper Stated Complaint: Fell, Rt elbow inj Time Seen by Provider: 02/06/22 20:50 Source: patient and family Mode of arrival: Ambulatory History of Present Illness HPI narrative: 41F nonsmoker with noncontributory medical history presents with family in the chief complaint of a mechanical ground level fall resulting in right elbow and shoulder pain. She was in her normal state of health and denies prodromal symptoms such as dizziness, weakness or lightheadedness. She denies any neck or head injury. She states that she was trying to step over her daughter's stress which is laying on the ground and her foot got caught it and she fell from standing onto her right elbow. She now has significant pain in her elbow and shoulder with any attempts at range of motion. She is got some tingling in her fingers but is able to move them. She denies any wrist pain or injury. Related Data Home Medications Medication Instructions Recorded Confirmed vitamin-ferrous fumarate 1 cap PO DAILY ##0 09/08/16 08/25/19 65 mg iron-folic acid 1 mg capsule (Mynatal) Previous Rx's Medication Instructions Recorded meclizine 25 mg tablet 25 mg PO TID PRN dizziness #10 tabs 01/12/20 phenazopyridine 100 mg tablet 100 mg PO TID PRN pain 6 doses #6 06/11/20 (Pyridium) tabs hydrocodone 5 mg-acetaminophen 325 1 tab PO Q4-6H PRN pain #20 tabs 02/07/22 mg tablet Allergies Allergy/AdvReac Type Severity Reaction Status Date / Time codeine Allergy Intermediate HIVES Verified 02/06/22 20:51 Review of Systems Review of Systems Narrative: GENERAL: Denies chills, fatigue, malaise, fever, sweats. HEENT: Denies sinus pain, ear pain, sore throat, difficulty swallowing, dizziness. RESPIRATORY: Denies dyspnea, cough, wheezing, hemoptysis, sputum. CARDIOVASCULAR: Denies chest pain, palpitations, orthopnea, edema, GASTROINTESTINAL: Denies nausea, vomiting, abdominal pain, diarrhea, constipation, melena. : Denies dysuria, frequency, incontinence, hematuria, urinary retention. MUSCULOSKELETAL: See HPI SKIN: Denies rash, skin lesions, or other NEUROLOGIC: Denies weakness, headache, numbness, change in speech, confusion, seizures, incoordination. PSYCHIATRIC: No concerning psychosocial issues. 12 point review of systems is negative except for those stated above Patient History Medical History (Updated 02/07/22 @ 05:02 by Danial Youssef DO) AMA (advanced maternal age) multigravida 35+ Asthma (spontaneous vaginal delivery) Surgical History History of cholecystectomy (~2010) S/P dilatation and curettage (~04/11/19) S/P rhinoplasty (~2006) [place] teeth removed Family History Father Diabetes mellitus Hypertension Mother Pancreatic cancer Grandfather Hypertension Diabetes mellitus S/P triple vessel bypass Grandmother Cancer Grandfather No problems noted. Grandmother No problems noted. Social History marital status: household members: spouse and children education level: high school (10th Grade) occupational status: unemployed current occupational exposures/hazards: No special constantine needs: No Smoking Status: Never smoker substance use type: does not use Smoking Status: Never smoker alcohol intake frequency: other Substance Use Type: marijuana Exam Narrative Exam Narrative: GENERAL: [41] year old patient appears stated age. Well-developed patient, in mild distress. Tearful complaining of pain HEAD: Atraumatic. Normocephalic. EYES: Pupils equal round and reactive. Extraocular motions intact. No scleral icterus. No injection or drainage. ENT: Nose without bleeding, purulent drainage. Throat without erythema, tonsillar hypertrophy or exudate. Airway patent. NECK: Trachea midline. Non tender CARDIOVASCULAR: Regular rate and rhythm without murmurs, gallops, or rubs. RESPIRATORY: Clear to auscultation. Breath sounds equal bilaterally. No wheezes, rales, or rhonchi. GASTROINTESTINAL: Abdomen soft, non-tender, nondistended. EXTREMITIES: No edema or joint tenderness. BACK: Nontender without deformity or crepitance. No flank tenderness. NEURO: AOx3. SKIN: No rash or erythema of visible areas Initial Vital Signs Initial Vital Signs: Vital Signs Temperature 98.1 F 02/06/22 20:37 Pulse Rate 71 02/06/22 20:37 Respiratory Rate 16 02/06/22 20:37 Blood Pressure 174/104 H 02/06/22 20:37 Pulse Oximetry 96 02/06/22 20:37 Oxygen Delivery Method 02/06/22 20:37 Procedures Orthopedic Splinting/Casting Injury #1: Side: right Upper Extremity Injury Location: elbow Upper Extremity Immobilizer: sling/shoulder immobilizer Post splinting neuro exam: intact Post splinting vascular exam: intact Placed by: Nursing Course Orders Ordered: ED Orders 02/06/22 20:51 XR elbow RT min 3V Stat 02/06/22 20:52 XR shoulder RT min 2V Stat 02/06/22 22:37 CT UE RT wo con Stat Discontinued Medications Hydrocodone Bitart/Acetaminophen (Hydrocodone/Acet 5/325 Prepack) 1 bottle MISC SEEINSTR ONE Stop: 02/06/22 21:02 Last Admin: 02/06/22 21:16 Dose: Not Given Documented By: NR Oxycodone/Acetaminophen (Oxycodone/Apap 5/325 Prepack) 1 bottle MISC SEEINSTR ONE Stop: 02/06/22 21:07 Last Admin: 02/06/22 21:14 Dose: 1 bottle Documented By: NR Vital Signs Vital signs: Vital Signs - 8 hr 02/06/22 20:37 Temperature 98.1 F Pulse Rate 71 Respiratory Rate 16 Blood Pressure 174/104 H Pulse Oximetry 96 Oxygen Delivery Method Room Air MDM - Extremity Injury (Upper) Imaging Data Extremity x-ray #1: Radiologist's Impression: [address] [address] XRay Report Signed Patient: Jenni Mitchell V MR#: [id number] : 1980 Acct:[id number] Age/Sex: 41 / F Date of Service: 02/06/22 Loc: ED Accession Number: [id number] ?? Procedure: XR elbow RT min 3V Ordering Provider: Danial Youssef D.O. PROCEDURE:? XR ELBOW RT MIN 3V INDICATIONS:? fall. R arm injury ? TECHNIQUE:? 3 views of the elbow were acquired.? ? COMPARISON:? None. ? FINDINGS:? ? Bones:? No fractures or dislocations.? No suspicious bony lesions.? ? Soft tissues:? No elbow joint effusion.? No suspicious soft tissue calcifications.? ? ? IMPRESSION:? ? 1. No fracture or dislocation. ? ? Dictated by: Harris Ahmadi M.D. on 02/06/2022 at 22:23 ? ? Approved by: Harris Ahmadi M.D. on 02/06/2022 at 22:23 ? UE Extremity: Radiologist's Impression: Jenni Mitchell V??41??F??1980 ? Allergy/Adv: codeine Close Upper Extremity CT (Signed) Harris Ahmadi - 02/06/22 Shoulder X-Ray (Signed) Ahmadi,Harris - 02/06/22 Elbow X-Ray (Signed) Harris Ahmadi - 02/06/22 DI Result 03/30/21 Knee X-Ray (Signed) Otis Burroughs - 03/30/21 Head/Neck CTA (Signed) Marta Jones - 11/20/[address] (Signed) Marta Jones - 11/20/20 Tibia/Fibula X-Ray (Signed) Ryan Campos - 10/16/20 Ankle X-Ray (Signed) Ryan Campos - 10/16/20 Radiology Report (Cancelled) Pedro Chery - 10/11/20 Ankle X-Ray (Signed) Marta Jones - 09/07/[address] (Signed) Beny Mcgee - 07/10/20 Chest X-Ray (Signed) Bladimir Donato - 06/28/20 Outside EKG 06/28/20 KUB X-Ray (Signed) Daron Jaime - 06/22/20 Abdomen/Pelvis CT (Signed) Ishan Alan - 06/11/20 Chest X-Ray (Signed) Justin Burger - 06/05/20 Head/Neck CTA (Signed) Kayleigh Oconnor - 05/21/[address] (Signed) Kayleigh Oconnor - 05/21/20 Telemetry Strips 05/21/[address] (Signed) Ulysses Bhatt - 01/30/20 Pelvis Ultrasound (Signed) Paco Hale - 12/11/19 Ultrasound (Signed) Daron Jaime - 03/13/19 Telemetry Strips 09/16/16 [address] [place] [address] CT Scan Report Signed Patient: Jenni Mitchell V MR#: [id number] : 1980 Acct:[id number] Age/Sex: 41 / F Date of Service: 02/06/22 Loc: ED Accession Number: [id number] ?? Procedure: CT UE RT wo con Ordering Provider: Danial Youssef D.O. PROCEDURE:? CT UE RT WO CON ? INDICATIONS:? severe shoulder/elbow pain after fall, negative Xrays ? TECHNIQUE:? Noncontrast 1-1.5 mm axial sections were acquired through the right upper extremity centered at the elbow, with coronal and sagittal reformats.? ? COMPARISON:? [facility], CR, XR SHOULDER RT MIN 2V, 02/06/2022, 21:08.? [facility], CR, XR ELBOW RT MIN 3V, 02/06/2022, 21:08. ? FINDINGS:? Image quality:? Excellent.? ? Bones:? There is a small curvilinear lucency within the posterior radial head suspicious for a nondisplaced fracture.? Elsewhere, no fracture or dislocation demonstrated within the right upper extremity.? The visualized ribs appear intact. ? Soft tissues:? No elbow joint effusion.? No glenohumeral joint effusion.? The visualized musculature appears preserved. ? IMPRESSION:? ? 1. Small curvilinear lucency suspicious for a nondisplaced fracture of the radial head. ? ? Dictated by: Harris Ahmadi M.D. on 02/07/2022 at 0:25 ? ? Approved by: Harris Ahmadi M.D. on 02/07/2022 at 0:30 ? Extremity x-ray #2: Radiologist's Impression: Close Upper Extremity CT (Signed) Harris Ahmadi - 02/06/22 Shoulder X-Ray (Signed) Harris Ahmadi - 02/06/22 Elbow X-Ray (Signed) Harris Ahmadi - 02/06/22 DI Result 03/30/21 Knee X-Ray (Signed) Otis Burroughs - 03/30/21 Head/Neck CTA (Signed) Marta Jones - 11/20/[address] (Signed) Marta Jones - 11/20/20 Tibia/Fibula X-Ray (Signed) Ryan Campos - 10/16/20 Ankle X-Ray (Signed) Ryan Campos - 10/16/20 Radiology Report (Cancelled) MiirStephanycristopher - 10/11/20 Ankle X-Ray (Signed) Marta Jones - 09/07/[address] (Signed) Yohana Mcgeeng - 07/10/20 Chest X-Ray (Signed) Bladimir Donato - 06/28/20 Outside EKG 06/28/20 KUB X-Ray (Signed) Daron Jaime - 06/22/20 Abdomen/Pelvis CT (Signed) Ishan Alan - 06/11/20 Chest X-Ray (Signed) Justin Burger - 06/05/20 Head/Neck CTA (Signed) Kayleigh Oconnor - 05/21/[address] (Signed) Kayleigh Oconnor - 05/21/20 Telemetry Strips 05/21/[address] (Signed) Ulysses Bhatt - 01/30/20 Pelvis Ultrasound (Signed) Paco Hale - 12/11/19 Ultrasound (Signed) Daron Jaime - 03/13/19 Telemetry Strips 09/16/16 [place] [address] XRay Report Signed Patient: Jenni Mitchell V MR#: [id number] : 1980 Acct:[id number] Age/Sex: 41 / F Date of Service: 02/06/22 Loc: ED Accession Number: [id number] ?? Procedure: XR shoulder RT min 2V Ordering Provider: Danial Youssef D.O. PROCEDURE:? XR SHOULDER RT MIN 2V ? INDICATIONS:? fall. R arm injury ? TECHNIQUE:? 2 views of the shoulder were acquired.? ? COMPARISON:? None. ? FINDINGS:? ? Bones:? No fractures or dislocations.? There is mild acromioclavicular joint degeneration.? No suspicious bony lesions.? Visualized ribs appear intact.? ? Soft tissues:? No suspicious soft tissue calcifications.? ? IMPRESSION:? ? 1. No fracture or dislocation.? ? ? Dictated by: Harris Ahmadi M.D. on 02/06/2022 at 22:23 ? ? Approved by: Harris Ahmadi M.D. on 02/06/2022 at 22:24 ? Discharge Plan Departure Patient Disposition: Home Clinical Impression: Closed fracture of radial head Instructions: DI for Elbow Fracture Activity Restrictions/Additional Instructions: *You have been diagnosed with [right radial head fracture] *What to do: *Please continue to take your regular medications as directed. [ x] New medication prescriptions sent to your pharmacy: [ [facility]] [ ] New medication written as a paper prescription [x] Tylenol and occasional Motrin for pain *Please follow up with [Mariano ] of [facility] in 2-3 days, call for an appointment. Let them know you were seen in the Emergency Department and that we ask that you be seen in follow up. We will electronically transmit a record of today's note if your PCP is in our system *Return to Emergency Department if you should have any new, worsening or concerning symptoms, such as [worsening pain, significant swelling, cold extremities, numbness, tingling, weakness or other bothersome symptoms You have been prescribed a short course of narcotic medications. These are potentially dangerous and addictive medications that should be used carefully. While on these medications you cannot drive or operate heavy machinery. Additionally, you cannot sign legal documents or perform any duties such as this. Many people get constipated on narcotic medications so it would be advisable to discuss stool softeners with the pharmacist when you picker/puller your prescription. Please understand that we cannot provide further refills of narcotics or controlled substances through the ED and your pain management will need to be through your Primary Care Provider Prescriptions: New hydrocodone-acetaminophen 5-325 mg tablet 1 tab PO Q4-6H PRN (Reason: pain) Qty: 20 0RF No Action Mynatal 1 EACH capsule 1 cap PO DAILY Qty: 0 meclizine 25 mg tablet 25 mg PO TID PRN (Reason: dizziness) Qty: 10 0RF phenazopyridine [Pyridium] 100 mg tablet 100 mg PO TID PRN (Reason: pain) Qty: 6 0RF Referrals: Pipe Bruner PA-C [Primary Care Provider] - Aicha Quintnaa MD [Physician] - Visit Report Forms: Patient Portal/API
[2022-02-06] MEDS: OXYCODONE/APAP 5/325 PREPACK 1 BOTTLE MISC (21:14)
--- NOTE | 2022-02-06 22:37 | DI.CT.S_ITS ---
PROCEDURE: CT UE RT WO CON INDICATIONS: severe shoulder/elbow pain after fall, negative Xrays TECHNIQUE: Noncontrast 1-1.5 mm axial sections were acquired through the right upper extremity centered at the elbow, with coronal and sagittal reformats. COMPARISON: [facility], CR, XR SHOULDER RT MIN 2V, 02/06/2022, 21:08. [facility], CR, XR ELBOW RT MIN 3V, 02/06/2022, 21:08. FINDINGS: Image quality: Excellent. Bones: There is a small curvilinear lucency within the posterior radial head suspicious for a nondisplaced fracture. Elsewhere, no fracture or dislocation demonstrated within the right upper extremity. The visualized ribs appear intact. Soft tissues: No elbow joint effusion. No glenohumeral joint effusion. The visualized musculature appears preserved. IMPRESSION: 1. Small curvilinear lucency suspicious for a nondisplaced fracture of the radial head. Dictated by: Harris Ahmadi M.D. on 02/07/2022 at 0:25 Approved by: Harris Ahmadi M.D. on 02/07/2022 at 0:30
== END 2022-02-07 00:46 | disposition home or self-care (01) ==
PROVIDERS: Emergency Provider Emergency Medicine; PCP Physician Assistant
DX: S52.121A Displaced fracture of head of right radius, initial encounter for closed fracture (principal); W18.30XA Fall on same level, unspecified, initial encounter
CPT/HCPCS: 73030; 73080; 73200; 99284

== ENCOUNTER 2022-04-25 16:38 | Emergency (ER) | payer MEDICAID, OTHER, SELFPAY ==
[2022-04-25] VITALS (7 sets, daily range): BP systolic 134–145; BP diastolic 84–95; PULSE 111–128; RESP 24–32; TEMP 37.1; O2SAT 96–97
--- NOTE | 2022-04-25 16:49 | DI.RAD.S_ITS ---
PROCEDURE: XR CHEST 1V INDICATIONS: Flu like symptoms TECHNIQUE: One view of the chest was acquired. COMPARISON: [facility], CR, XR CHEST 1V, 06/28/2020, 11:55. FINDINGS: Surgical changes and devices: None. Lungs and pleura: Lungs are clear. No pleural effusions or pneumothorax. Mediastinum: Mediastinal contours appear normal. Heart size is normal. Bones and chest wall: No suspicious bony lesions. Overlying soft tissues appear unremarkable. IMPRESSION: No acute cardiopulmonary disease. Dictated by: Ivett Burger M.D. on 04/25/2022 at 17:32 Approved by: Ivett Burger M.D. on 04/25/2022 at 17:32
[2022-04-25] MEDS: ALBUTEROL 2.5 MG/3 ML NEB (ADULT) 5 MG INH (17:11)
[2022-04-25] MEDS: IPRATROPIUM 0.5 MG/2.5 ML NEB INH (17:11)
--- NOTE | 2022-04-25 17:18 | RT ---
Pt jessica ly tx well, no distress noted and on room air.
[2022-04-25 17:31] LABS: Influenza A - CEPHEID Flu A NEGATIVE (NEGATIVE); Influenza B - CEPHEID Flu B NEGATIVE (NEGATIVE); Respiratory Syncytial Virus Negative (Negative)
[2022-04-25 17:35] LABS: COVID-19 CEPHEID 4-PLEX PCR Negative (Negative)
--- NOTE | 2022-04-25 17:55 | ED.SOB ---
HPI - SOB/Dyspnea <LUCAS Puri - Last Filed: 04/25/22 18:58> General Chief Complaint: Shortness of Breath/Dyspnea Stated Complaint: sob Time Seen by Provider: 04/25/22 17:28 Source: patient and EMS Mode of arrival: EMS Limitations: no limitations History of Present Illness HPI Narrative: This is a 41-year-old female with history of asthma presents to the emergency department via EMS for cough, cold symptoms, congestion, and wheezing which started about 4 days ago. Patient's family had RSV last week, she has 5 children and 1 of them tested positive for influenza a yesterday. She states that her symptoms have gotten worse over the last 4 days and today was the worst. She had nausea vomiting the 1st 2 days and no longer does. She received 3 nebs between EMS and arrival to the emergency department before she started to get better. Patient takes Combivent and albuterol inhalers at home. Related Data Home Medications Medication Instructions Recorded Confirmed vitamin-ferrous fumarate 1 cap PO DAILY ##0 09/08/16 08/25/19 65 mg iron-folic acid 1 mg capsule (Mynatal) Previous Rx's Medication Instructions Recorded meclizine 25 mg tablet 25 mg PO TID PRN dizziness #10 tabs 01/12/20 phenazopyridine 100 mg tablet 100 mg PO TID PRN pain 6 doses #6 06/11/20 (Pyridium) tabs hydrocodone 5 mg-acetaminophen 325 1 tab PO Q4-6H PRN pain #20 tabs 02/07/22 mg tablet benzonatate 100 mg capsule 100 mg PO BID PRN cough #20 caps 04/25/22 cetirizine 10 mg tablet (Zyrtec) 10 mg PO BEDTIME PRN congestion 04/25/22 #20 tabs guaifenesin 600 mg tablet, 600 mg PO BID PRN cough #14 tabs 04/25/22 extended release 12 hr magnesium oxide 400 mg PO BEDTIME #30 caps 04/25/22 methylprednisolone 4 mg tablets in See Rx Instructions PO .COMPLEX 04/25/22 a dose pack (Medrol (Orion)) #21 ea Allergies Allergy/AdvReac Type Severity Reaction Status Date / Time codeine Allergy Intermediate HIVES Verified 02/06/22 20:51 Review of Systems <LUCAS Puri - Last Filed: 04/25/22 18:58> Review of Systems Narrative: Review of systems is negative for acute abnormalities unless otherwise noted in HPI Patient History <LUCAS Puri - Last Filed: 04/25/22 18:58> Medical History (Updated 04/25/22 @ 18:35 by LUCAS Puri) AMA (advanced maternal age) multigravida 35+ Asthma (spontaneous vaginal delivery) Surgical History History of cholecystectomy (~2010) S/P dilatation and curettage (~04/11/19) S/P rhinoplasty (~2006) [place] teeth removed Family History Father Diabetes mellitus Hypertension Mother Pancreatic cancer Grandfather Hypertension Diabetes mellitus S/P triple vessel bypass Grandmother Cancer Grandfather No problems noted. Grandmother No problems noted. Social History marital status: household members: spouse and children education level: high school (10th Grade) occupational status: unemployed current occupational exposures/hazards: No special constantine needs: No Smoking Status: Never smoker substance use type: does not use Smoking Status: Never smoker alcohol intake frequency: other Substance Use Type: marijuana Exam <LUCAS Puri - Last Filed: 04/25/22 18:58> Narrative Exam Narrative: Reviewed vitals signs and nursing notes. General: cooperative, comfortable, in no acute distress, well groomed HEENT: symmetrical facial expressions, moist mucous membranes Cardiovascular: regular rate and rhythm, no peripheral edema, warm extremities Respiratory: normal effort, able to speak in complete sentences, mild expiratory wheezes to right lower base after 3 nebs, No retractions, hypoxia or difficulty breathing. GI: abdomen soft, nontender to palpation, nondistended, without masses, rebound tenderness or exquisite tenderness with exam. MSK: moves all extremities, neurovascularly intact, no weakness, normal tone Skin: brisk capillary refill, without pallor or erythema Neuro: normal speech and cognition, A&O x3, ambulatory, clear speech Psych: mental status is grossly normal, congruent mood, normal affect, pleasant and cooperative Initial Vital Signs Initial Vital Signs: Vital Signs Temperature 98.8 F 04/25/22 16:44 Pulse Rate 111 H 04/25/22 16:44 Respiratory Rate 32 H 04/25/22 16:44 Blood Pressure 134/88 04/25/22 16:44 Pulse Oximetry 96 04/25/22 16:44 Oxygen Delivery Method 04/25/22 16:44 <Jeronimo Mendoza DO - Last Filed: 04/25/22 18:59> Initial Vital Signs Initial Vital Signs: Vital Signs Temperature 98.8 F 04/25/22 16:44 Pulse Rate 111 H 04/25/22 16:44 Respiratory Rate 32 H 04/25/22 16:44 Blood Pressure 134/88 04/25/22 16:44 Pulse Oximetry 96 04/25/22 16:44 Oxygen Delivery Method 04/25/22 16:44 Course <LUCAS Puri - Last Filed: 04/25/22 18:58> Orders Ordered: ED Orders 04/25/22 16:44 Covid-19 + FLU A/B + RSV - PCR Stat 04/25/22 16:49 XR chest 1V Stat Acetaminophen (Acetaminophen 325 Mg Tablet) 650 mg PO Q6H PRN PRN Reason: Fever/Mild Pain (1-3) Discontinued Medications Albuterol (Albuterol 2.5 Mg/3 Ml Neb (Adult)) 5 mg INH NOW ONE Stop: 04/25/22 17:07 Last Admin: 04/25/22 17:11 Dose: 5 mg Documented By: NL Dexamethasone (Dexamethasone 10 Mg/Ml Vial) 10 mg PO NOW ONE Stop: 04/25/22 17:53 Last Admin: 04/25/22 18:19 Dose: 10 mg Documented By: AT Guaifenesin (Guaifenesin Er 600 Mg Tab) 600 mg PO NOW ONE Stop: 04/25/22 17:55 Last Admin: 04/25/22 18:26 Dose: 600 mg Documented By: AT Ipratropium [employer] (Ipratropium 0.5 Mg/2.5 Ml Neb) 0.5 mg INH NOW ONE Stop: 04/25/22 17:07 Last Admin: 04/25/22 17:11 Dose: 0.5 mg Documented By: NL Ketorolac Tromethamine (Ketorolac 30 Mg/Ml Vial) 15 mg IV NOW ONE Stop: 04/25/22 17:53 Last Admin: 04/25/22 18:20 Dose: 15 mg Documented By: AT Ondansetron HCl (Ondansetron 4 Mg/2 Ml Inj) 4 mg IV NOW ONE Stop: 04/25/22 17:53 Last Admin: 04/25/22 18:21 Dose: 4 mg Documented By: AT Reevaluation(s) Reevaluation #1: Patient appears much better after her 3rd nebulizer, respirations are unlabored without retractions, without wheezing, occasional squeak auscultated to right lower base. Without hypoxia and pain is under control. Vital Signs Vital signs: Vital Signs - 8 hr 04/25/22 16:44 04/25/22 17:12 04/25/22 16:48 Temperature 98.8 F Pulse Rate 111 H 114 H 114 H Respiratory Rate 32 H 24 Blood Pressure 134/88 Pulse Oximetry 96 96 97 Oxygen Delivery Method Room Air Room Air 04/25/22 17:00 04/25/22 17:00 04/25/22 17:30 Temperature Pulse Rate 118 H Respiratory Rate Blood Pressure 136/89 134/91 H Pulse Oximetry 96 Oxygen Delivery Method 04/25/22 17:30 04/25/22 18:00 04/25/22 18:00 Temperature Pulse Rate 125 H 128 H Respiratory Rate Blood Pressure 138/95 H Pulse Oximetry 97 96 Oxygen Delivery Method Room Air <Jeronimo Mendoza DO - Last Filed: 04/25/22 18:59> Orders Ordered: ED Orders 04/25/22 16:44 Covid-19 + FLU A/B + RSV - PCR Stat 04/25/22 16:49 XR chest 1V Stat Acetaminophen (Acetaminophen 325 Mg Tablet) 650 mg PO Q6H PRN PRN Reason: Fever/Mild Pain (1-3) Discontinued Medications Albuterol (Albuterol 2.5 Mg/3 Ml Neb (Adult)) 5 mg INH NOW ONE Stop: 04/25/22 17:07 Last Admin: 04/25/22 17:11 Dose: 5 mg Documented By: JAIRO Dexamethasone (Dexamethasone 10 Mg/Ml Vial) 10 mg PO NOW ONE Stop: 04/25/22 17:53 Last Admin: 04/25/22 18:19 Dose: 10 mg Documented By: AT Guaifenesin (Guaifenesin Er 600 Mg Tab) 600 mg PO NOW ONE Stop: 04/25/22 17:55 Last Admin: 04/25/22 18:26 Dose: 600 mg Documented By: AT Ipratropium [employer] (Ipratropium 0.5 Mg/2.5 Ml Neb) 0.5 mg INH NOW ONE Stop: 04/25/22 17:07 Last Admin: 04/25/22 17:11 Dose: 0.5 mg Documented By: NL Ketorolac Tromethamine (Ketorolac 30 Mg/Ml Vial) 15 mg IV NOW ONE Stop: 04/25/22 17:53 Last Admin: 04/25/22 18:20 Dose: 15 mg Documented By: AT Ondansetron HCl (Ondansetron 4 Mg/2 Ml Inj) 4 mg IV NOW ONE Stop: 04/25/22 17:53 Last Admin: 04/25/22 18:21 Dose: 4 mg Documented By: AT Vital Signs Vital signs: Vital Signs - 8 hr 04/25/22 16:44 04/25/22 17:12 04/25/22 16:48 Temperature 98.8 F Pulse Rate 111 H 114 H 114 H Respiratory Rate 32 H 24 Blood Pressure 134/88 Pulse Oximetry 96 96 97 Oxygen Delivery Method Room Air Room Air 04/25/22 17:00 04/25/22 17:00 04/25/22 17:30 Temperature Pulse Rate 118 H Respiratory Rate Blood Pressure 136/89 134/91 H Pulse Oximetry 96 Oxygen Delivery Method 04/25/22 17:30 04/25/22 18:00 04/25/22 18:00 Temperature Pulse Rate 125 H 128 H Respiratory Rate Blood Pressure 138/95 H Pulse Oximetry 97 96 Oxygen Delivery Method Room Air MDM - SOB/Dyspnea <Patricia Weldon [facility] - Last Filed: 04/25/22 18:58> Lab Data Labs: Lab Results 04/25/22 Range/Units 16:44 SARS-CoV-2 (PCR) Negative (Negative) Influenza A (RT-PCR) Flu a negative (NEGATIVE) Influenza B (RT-PCR) Flu b negative (NEGATIVE) RSV (PCR) Negative (Negative) Imaging Data Chest x-ray: Radiologist's Impression: PROCEDURE:? XR CHEST 1V ? INDICATIONS:? Flu like symptoms ? TECHNIQUE:? One view of the chest was acquired.? ? COMPARISON:? [facility], CR, XR CHEST 1V, 06/28/2020, 11:55. ? FINDINGS:? ? Surgical changes and devices:? None.? ? Lungs and pleura:? Lungs are clear.? No pleural effusions or pneumothorax.? ? Mediastinum:? Mediastinal contours appear normal.? Heart size is normal.? ? Bones and chest wall:? No suspicious bony lesions.? Overlying soft tissues appear unremarkable.? ? IMPRESSION:? No acute cardiopulmonary disease. ? ? Dictated by: Ivett Burger M.D. on 04/25/2022 at 17:32 ? ? Approved by: Ivett Burger M.D. on 04/25/2022 at 17:32 ? MDM Narrative Medical decision making narrative: This is a 41-year-old female presents to the emergency department via EMS for shortness of breath, asthma exacerbation secondary to upper respiratory infection she has had for the last 4 days with productive cough, exposure to RSV and influenza at home. Patient has 5 children, all of them had RSV and now 2 of them have influenza. Patient takes Combivent and albuterol inhalers at home, she received [address] to the emergency department and initially before she was able to make full sentences without stopping to breathe. She has occasional squeaks to her right lower base but breath sounds are without crackles, rhonchi, diminished breath sounds, wheezing, with improved air movement. She has a wet sounding cough, did not have fever but had chills while she was in the emergency department. She was given Toradol, Tylenol, dexamethasone, Zofran, Mucinex and albuterol with Atrovent for her symptoms. She felt much better and was ready to discharge home. Patient is tolerating p.o., encouraged her to stay hydrated, use [id number] medications as needed, she was prescribed medications for her symptoms including a Medrol Dosepak, magnesium to take with her daily vitamin for a smooth muscle relaxant, Mucinex, Zyrtec and Tessalon Perles. She is given strict return precautions, understands to continue with her Combivent and albuterol as prescribed. Chest x-ray without any focal opacity/consolidation, pleural effusion or pneumothorax. Patient is appropriate and amenable to discharge home. Vital signs are stable on repeat examination is unremarkable. Patient has been informed of results. Patient has been given strict return to ER precautions for any new or worsening symptoms. Patient understands to follow up closely with outpatient providers as instructed. Patient understands plan and agrees to discharge home. All questions and concerns answered at this time. <Jeronimo Mendoza, DO - Last Filed: 04/25/22 18:59> Lab Data Labs: Lab Results 04/25/22 Range/Units 16:44 SARS-CoV-2 (PCR) Negative (Negative) Influenza A (RT-PCR) Flu a negative (NEGATIVE) Influenza B (RT-PCR) Flu b negative (NEGATIVE) RSV (PCR) Negative (Negative) Discharge Plan Departure Patient Disposition: Home Clinical Impression: Acute viral syndrome Asthma exacerbation Qualifiers: Asthma severity: moderate Asthma persistence: unspecified Qualified Code(s): J45.901 - Unspecified asthma with (acute) exacerbation Instructions: Asthma -- Adult, DI for Cough -- Adult, DI for Viral Upper Respiratory Infection -- Adult Activity Restrictions/Additional Instructions: *You have been diagnosed with an asthma exacerbation secondary to upper respiratory infection which is likely the flu but has not turned your test positive today. Your x-ray does not show any pneumonia, your symptoms should start to get better in the next 24-48 hours. Please hydrated and drink plenty of clear fluids, I have given you multiple medications and symptoms to [facility], there is cough medicine, Zyrtec for congestion, Mucinex for productive cough, and a steroid pack to take as prescribed, I have also given you magnesium which is a smooth muscle relaxant and can help with your asthma, please take this with your vitamins. I hope you feel better soon, please come back to the emergency department for worsening of your breathing or exacerbation. I hope you feel better soon. Tylenol and ibuprofen as needed for fever and chills. *What to do: *Please continue to take your regular medications as directed. [x ] New medication prescriptions sent to your pharmacy: [ [facility]] [ ] New medication written as a paper prescription [ ] No new medications given *Please follow up with your primary care provider in 2-3 days, call for an appointment. Let them know you were seen in the Emergency Department and that we asked that you be seen for follow-up. We will electronically transmit a record of today's note if your PCP is in our system *If you do not have a primary care provider please contact [phone] to establish care with one of the [facility] primary care providers. *Return to Emergency Department if you should have any new, worsening, or concerning symptoms, such as [fever greater than 101F, chills, worsening pain, persistent vomiting or other bothersome symptoms]. Prescriptions: New methylprednisolone [Medrol (Orion)] 4 mg tablets,dose pack See Rx Instructions .ROUTE .COMPLEX Qty: 21 0RF Rx Instructions: orally per package directions guaifenesin 600 mg tablet extended release 12hr 600 mg PO BID PRN (Reason: cough) Qty: 14 0RF benzonatate 100 mg capsule 100 mg PO BID PRN (Reason: cough) Qty: 20 0RF cetirizine [Zyrtec] 10 mg tablet 10 mg PO BEDTIME PRN (Reason: congestion) Qty: 20 0RF magnesium oxide 400 mg magnesium capsule 400 mg PO BEDTIME Qty: 30 0RF No Action Mynatal 1 EACH capsule 1 cap PO DAILY Qty: 0 meclizine 25 mg tablet 25 mg PO TID PRN (Reason: dizziness) Qty: 10 0RF phenazopyridine [Pyridium] 100 mg tablet 100 mg PO TID PRN (Reason: pain) Qty: 6 0RF hydrocodone-acetaminophen 5-325 mg tablet 1 tab PO Q4-6H PRN (Reason: pain) Qty: 20 0RF Referrals: Pipe Bruner PA-C [Primary Care Provider] - Visit Report Forms: Patient Portal/API <Jeronimo Mendoza, DO - Last Filed: 04/25/22 18:59> [facility] Attestation: Dr Mendoza Co-Sign Statement: I was available for consultation during this patient's emergency department visit. This chart is signed by myself for administrative purposes only. I did not have direct contact with this patient during this visit. They were seen independently by the APC.
[2022-04-25] MEDS: DEXAMETHASONE 10 MG/ML VIAL PO (18:19)
[2022-04-25] MEDS: KETOROLAC 30 MG/ML VIAL 15 MG IV (18:20)
[2022-04-25] MEDS: ONDANSETRON 4 MG/2 ML INJ IV (18:21)
[2022-04-25] MEDS: guaiFENesin ER 600 MG TAB PO (18:26)
== END 2022-04-25 18:48 | disposition home or self-care (01) ==
PROVIDERS: Emergency Medicine; Emergency Provider Nurse Practitioner Critical Care Medicine; PCP Physician Assistant
DX: J45.901 Unspecified asthma with (acute) exacerbation (principal); B34.9 Viral infection, unspecified; Z20.822 Contact with and (suspected) exposure to COVID-19
CPT/HCPCS: 0241U; 71045; 94640; 96374; 96375; 99284; J1100; J1885; J2405; J7613

== ENCOUNTER 2022-04-30 02:34 | Observation (INO) | payer MEDICAID, OTHER, SELFPAY ==
[2022-04-30] VITALS (12 sets, daily range): BP systolic 133–154; BP diastolic 87–109; PULSE 80–107; RESP 14–29; TEMP 35.4–36.8; O2SAT 94–98; BMI 25.4
--- NOTE | 2022-04-30 02:34 | DI.CT.S_ITS ---
PROCEDURE: CT HEAD/BRAIN WO CON INDICATIONS: upper extremity weakness, history of stroke TECHNIQUE: Noncontrast 4.5 mm thick angled axial sections acquired from the foramen magnum to the vertex, with coronal and sagittal reformats. For radiation dose reduction, the following was used: automated exposure control, adjustment of mA and/or kV according to patient size. COMPARISON: [facility], CT, CT STROKE, 11/20/2020, 1:31. [facility], CT, CT HEAD/BRAIN WO CON, 07/10/2020, 12:14. FINDINGS: Image quality: Excellent. CSF spaces: Basal cisterns are patent. No extra-axial fluid collections. Ventricles are normal in size and shape. Brain: No midline shift. No intracranial masses or hemorrhage. Joshua-white matter interface is normal. Skull and face: Calvarium and visualized facial bones are intact, without suspicious lesions. Sinuses: Visualized sinuses. There is left mastoidectomy. Right mastoid is clear. IMPRESSION: 1. No acute intracranial abnormalities. No significant discrepancy with the material handler 2nd shift radiology preliminary report. Dictated by: Ivett Burger M.D. on 04/30/2022 at 7:43 Approved by: Ivett Burger M.D. on 04/30/2022 at 7:44
--- NOTE | 2022-04-30 02:34 | DI.CT.S_ITS ---
PROCEDURE: CT ANGIO HEAD AND NECK INDICATIONS: upper extremity weakness, history of stroke TECHNIQUE: After the administration of intravenous contrast, 1 mm thick sections acquired from the aortic arch through the [place] of [place]. Post-contrast 4.5 mm thick sections then re-acquired from the foramen magnum to the vertex. 3-dimensional jhykpkd-zyokaajez-hrilfbectd (MIP) and/or volume rendering reformats were acquired of the central intracranial vasculature and neck separately. For radiation dose reduction, the following was used: automated exposure control, adjustment of mA and/or kV according to patient size. COMPARISON: [facility], CT, CT ANGIO HEAD AND NECK, 11/20/2020, 1:31. FINDINGS: Image quality: Excellent. BRAIN: CSF spaces: Ventricles are normal in size and shape. Basal cisterns are patent. No extra-axial fluid collections. Brain: No midline shift. No intracranial bleeds or masses. Joshua-white matter interface appears intact. Skull and face: Calvarium and facial bones appear intact, without suspicious lesions. Orbits appear normal. Sinuses: Sinuses and mastoids are clear. HEAD CT ANGIOGRAPHY: Anterior circulation: Intracranial internal carotid arteries are normal in size and flow. The flow within the paired anterior cerebral arteries is normal and symmetric. The flow within the middle cerebral arteries is normal and symmetric. The anterior communicating artery is seen. No aneurysms are seen. Posterior circulation: Visualized portions of the vertebral arteries demonstrate normal caliber, and join to form a normal appearing basilar artery. Flow within the posterior cerebral arteries is normal and symmetric. No aneurysms are seen. NECK CT ANGIOGRAPHY: Carotid system: The great vessels demonstrate a conventional anatomy as they arise from the aortic arch. The origins of the common carotid arteries appear patent. The common carotid arteries demonstrate normal caliber and courses. The bifurcation regions are both widely patent. The internal carotid arteries demonstrate normal calibers and courses. Posterior circulation: The origins of the vertebral arteries both appear widely patent. The more superior extracranial portions of both vertebral arteries also demonstrate normal courses and calibers. They join to form a normal appearing basilar artery. Soft tissues: Visualized neck soft tissues demonstrate no suspicious abnormalities. Bones: No suspicious bony lesions. Visualized cervical spine appears normally aligned. IMPRESSION: 1. No acute intracranial abnormalities. 2. No hemodynamic significant stenosis in anterior or posterior circulations. 3. No hemodynamic significant stenosis in cervical carotid arteries or vertebral arteries bilaterally. No significant discrepancy with the fast food shift supervisor radiology preliminary report. Any quantitative measurements of stenosis were performed using NASCET criteria. Dictated by: Ivett Burger M.D. on 04/30/2022 at 7:48 Approved by: Ivett Burger M.D. on 04/30/2022 at 8:05
--- NOTE | 2022-04-30 02:46 | ED_ITS ---
HPI - Neuro Symptoms/Deficit General Chief Complaint: Neuro Symptoms/Deficit Stated Complaint: poss stroke Time Seen by Provider: 04/30/22 02:40 History of Present Illness HPI Narrative: 41-year-old female nonsmoker with history of asthma, hypertension, prior stroke a few years ago with left-sided symptoms that has completely resolved presents by EMS for evaluation of stroke-like symptoms that started at about 2200 last night. She had been in her normal state of health and states that she 1st noticed some numbness and tingling around her lips over the course of the day and then in the evening she developed numbness and tingling in her fingertips and upon waking this morning she noticed that the tingling had moved up most of her arm that she noticed it was weak and uncoordinated. She denies any recent trauma, fever or head injury. She denies any blurred or double vision nor any trouble with speech. She denies balance trouble or issues with her lower extremities such as numbness, tingling or weakness. She is had no chest pain or shortness of breath. She is taken directly to CT scan but not activated as a code stroke as she is outside of the window for tPA and does not have a sufficiently elevated LAMS score to activate code IR Related Data Home Medications Medication Instructions Recorded Confirmed vitamin-ferrous fumarate 1 cap PO DAILY ##0 09/08/16 08/25/19 65 mg iron-folic acid 1 mg capsule (Mynatal) Previous Rx's Medication Instructions Recorded meclizine 25 mg tablet 25 mg PO TID PRN dizziness #10 tabs 01/12/20 phenazopyridine 100 mg tablet 100 mg PO TID PRN pain 6 doses #6 06/11/20 (Pyridium) tabs hydrocodone 5 mg-acetaminophen 325 1 tab PO Q4-6H PRN pain #20 tabs 02/07/22 mg tablet benzonatate 100 mg capsule 100 mg PO BID PRN cough #20 caps 04/25/22 cetirizine 10 mg tablet (Zyrtec) 10 mg PO BEDTIME PRN congestion 04/25/22 #20 tabs guaifenesin 600 mg tablet, 600 mg PO BID PRN cough #14 tabs 04/25/22 extended release 12 hr magnesium oxide 400 mg PO BEDTIME #30 caps 04/25/22 methylprednisolone 4 mg tablets in See Rx Instructions PO .COMPLEX 04/25/22 a dose pack (Medrol (Orion)) #21 ea Allergies Allergy/AdvReac Type Severity Reaction Status Date / Time codeine Allergy Intermediate HIVES Verified 04/30/22 02:54 Review of Systems Review of Systems Narrative: GENERAL: Denies chills, fatigue, malaise, fever, sweats. HEENT: Denies sinus pain, ear pain, sore throat, difficulty swallowing, dizziness. RESPIRATORY: Denies dyspnea, cough, wheezing, hemoptysis, sputum. CARDIOVASCULAR: Denies chest pain, palpitations, orthopnea, edema, GASTROINTESTINAL: Denies nausea, vomiting, abdominal pain, diarrhea, constipation, melena. : Denies dysuria, frequency, incontinence, hematuria, urinary retention. MUSCULOSKELETAL: denies weakness, joint pain, or bony pain SKIN: Denies rash, skin lesions, or other NEUROLOGIC: See HPI PSYCHIATRIC: No concerning psychosocial issues. 12 point review of systems is negative except for those stated above Patient History Medical History AMA (advanced maternal age) multigravida 35+ Asthma (spontaneous vaginal delivery) Surgical History History of cholecystectomy (~2010) S/P dilatation and curettage (~04/11/19) S/P rhinoplasty (~2006) [place] teeth removed Family History Father Diabetes mellitus Hypertension Mother Pancreatic cancer Grandfather Hypertension Diabetes mellitus S/P triple vessel bypass Grandmother Cancer Grandfather No problems noted. Grandmother No problems noted. Social History marital status: household members: spouse and children education level: high school (10th Grade) occupational status: unemployed current occupational exposures/hazards: No special constantine needs: No Smoking Status: Never smoker substance use type: does not use Smoking Status: Never smoker alcohol intake frequency: other Substance Use Type: marijuana Exam Narrative Exam Narrative: GENERAL: [41] year old patient appears stated age. Well-developed patient, in mild distress. GCS 15 HEAD: Atraumatic. Normocephalic. EYES: Pupils equal round and reactive. Extraocular motions intact. No scleral icterus. No injection or drainage. ENT: Nose without bleeding, purulent drainage. Throat without erythema, tonsillar hypertrophy or exudate. Airway patent. NECK: Trachea midline. Non tender CARDIOVASCULAR: Regular rate and rhythm without murmurs, gallops, or rubs. RESPIRATORY: Clear to auscultation. Breath sounds equal bilaterally. No wheezes, rales, or rhonchi. GASTROINTESTINAL: Abdomen soft, non-tender, nondistended. EXTREMITIES: No edema or joint tenderness. BACK: Nontender without deformity or crepitance. No flank tenderness. NEURO: AOx3. Cranial nerves 2-12 grossly intact SKIN: No rash or erythema of visible areas Initial Vital Signs Initial Vital Signs: Vital Signs Pulse Rate 98 H 04/30/22 02:50 Blood Pressure 133/102 H 04/30/22 02:50 Pulse Oximetry 97 04/30/22 02:50 Scores NIH Stroke Scale Level of Conciousness: Alert, keenly responsive Ask month/age: Answers both questions correctly. Open/close eyes, close hand: Performs both tasks correctly Best gaze horizontal: Normal Visual garcia: No visual loss Facial palsy: Normal symetrical movement Left arm drift: Drifts down, not to bed Right arm drift: No drift for full 10 sec Left leg drift: No drift for full 5 sec Right leg drift: No drift for full 5 sec Limb ataxia: Present in one limb Sensory on face/arms/legs: Mild to moderate sensory loss, can tell touch Best language: No aphasia, normal Dysarthria: Normal Extinction or inattention: No abnormality Total NIH Stroke scale score: 3 Course Orders Ordered: ED Orders 04/30/22 02:34 CT angio head and neck Stat CT head/brain wo con Stat EKG-12 Lead Stat 04/30/22 03:02 COVID19 -Nasal RAPID/Pre-Proc Stat 04/30/22 03:08 Complete Blood Count AUTO DIFF Stat Comprehensive Metabolic Panel Stat Ethanol (ETOH) Stat Partial Thromboplastin Time Stat Prothrombin Time INR Stat Troponin & CK Cardiac Panel Stat 04/30/22 03:27 Urinalysis and Microscopic Stat Urine Drug Screen, Rapid Stat Discontinued Medications Aspirin (Aspirin 81 Mg Chew Tab) 324 mg PO NOW ONE Stop: 04/30/22 04:04 Last Admin: 04/30/22 04:10 Dose: 324 mg Reevaluation(s) Reevaluation #1: 0330 -symptoms now completely resolved, NIH stroke scale now 0 Vital Signs Vital signs: Vital Signs - 8 hr 04/30/22 02:55 04/30/22 02:50 04/30/22 02:50 Temperature 98.2 F Pulse Rate 93 H 98 H Respiratory Rate 14 Blood Pressure 133/102 H 133/102 H Pulse Oximetry 96 97 Oxygen Delivery Method Room Air 04/30/22 03:05 04/30/22 03:19 04/30/22 03:19 Temperature Pulse Rate 89 96 H Respiratory Rate 28 H Blood Pressure 145/93 H Pulse Oximetry 95 96 Oxygen Delivery Method 04/30/22 03:30 04/30/22 03:30 Temperature Pulse Rate 90 Respiratory Rate 26 H Blood Pressure 139/87 Pulse Oximetry 97 Oxygen Delivery Method MDM - Neuro Symptoms/Deficit Lab Data Result diagrams: 04/30/22 03:08 04/30/22 03:08 Labs: Lab Results 04/30/22 04/30/22 04/30/22 Range/Units 03:02 03:08 03:08 WBC 6.6 (4.5-11.0) X10^3/uL RBC 4.82 (4.0-5.2) X10^6/uL Hgb 13.9 (12.0-16.0) g/dL Hct 40.7 (36-46) % MCV 84.4 (80-100) fL MCH 28.7 (26-34) PG MCHC 34.0 (30-36) % RDW 14.5 (11.6-14.8) % Plt Count 358 (150-400) X10^3/uL Neut % (Auto) 45.9 L (50-75) % Lymph % (Auto) 43.0 H (25-40) % [place] % (Auto) 9.3 (3-14) % Eos % (Auto) 1.0 L (2-4) % Baso % (Auto) 0.8 (0-2) % Neut # (Auto) 3000 (1569-3330) /uL Lymph # (Auto) 2900 (7801-2099) /uL [place] # (Auto) 600 (0-900) /uL Eos # (Auto) 100 (0-450) /uL Baso # (Auto) 100 (0-100) /uL PT 11.5 (10.1-12.7) SECONDS INR 1.0 (0.9-1.3) APTT 27 (26-36) SECONDS Sodium (137-145) mmol/L Potassium (3.4-5.1) mmol/L Chloride (98-107) mmol/L Carbon Dioxide (22-32) mmol/L BUN (7-17) mg/dL Creatinine (0.52-1.04) mg/dL Estimated GFR (>60) mL/min BUN/Creatinine Ratio (6-22) Glucose (70-100) mg/dL Calcium (8.4-10.2) mg/dL Total Bilirubin (0.2-1.3) mg/dL AST (14-36) IU/L ALT (<35) IU/L Alkaline Phosphatase (38-126) U/L Total Creatine Kinase (30-135) U/L CK-MB (CK-2) CK-MB (CK-2) Rel Index Troponin I (0.01-0.034) ng/mL Total Protein (6.3-8.2) g/dL Albumin (3.5-5.0) g/dL Globulin (1.7-4.1) g/dL Albumin/Globulin Ratio (1.0-2.8) Urine Color Urine Appearance Urine pH (4.5-8.0) Ur Specific [place] (1.000-1.035) Urine Protein (Negative) Urine Glucose (UA) (Negative) g/dL Urine Ketones (NEGATIVE) Urine Occult Blood (Negative) Urine Nitrate (Negative) Urine Bilirubin (NEGATIVE) Urine Urobilinogen (0.2) E.U./dL Ur Leukocyte Esterase (NEGATIVE) Urine RBC (0-5/HPF) Urine WBC (0-5/HPF) Ur Squamous Epith Cells (0-5/HPF) Urine Bacteria (None) Ur Culture Indicated? U Opiates 300ng/mL cut (Negative) Ur Oxycodone Screen (Negative) Urine Methadone Screen (Negative) Ur Barbiturates Screen (Negative) U Tricyclic Antidepress (Negative) Ur Phencyclidine Scrn (Negative) Ur Amphetamines Screen (Negative) U Methamphetamines Scrn (Negative) Ur MDMA Scrn (Ecstasy) (Negative) U Benzodiazepines Scrn (Negative) Urine Cocaine Screen (Negative) U Marijuana (THC) Screen (Negative) Ethyl Alcohol ( - 10) mg/dL SARS-CoV-2 (PCR) Negative (Negative) 04/30/22 04/30/22 04/30/22 Range/Units 03:08 03:27 03:27 WBC (4.5-11.0) X10^3/uL RBC (4.0-5.2) X10^6/uL Hgb (12.0-16.0) g/dL Hct (36-46) % MCV (80-100) fL MCH (26-34) PG MCHC (30-36) % RDW (11.6-14.8) % Plt Count (150-400) X10^3/uL Neut % (Auto) (50-75) % Lymph % (Auto) (25-40) % [place] % (Auto) (3-14) % Eos % (Auto) (2-4) % Baso % (Auto) (0-2) % Neut # (Auto) (6046-4701) /uL Lymph # (Auto) (6076-1974) /uL [place] # (Auto) (0-900) /uL Eos # (Auto) (0-450) /uL Baso # (Auto) (0-100) /uL PT (10.1-12.7) SECONDS INR (0.9-1.3) APTT (26-36) SECONDS Sodium 139 (137-145) mmol/L Potassium 2.9 L (3.4-5.1) mmol/L Chloride 105 (98-107) mmol/L Carbon Dioxide 22 (22-32) mmol/L BUN 7 (7-17) mg/dL Creatinine 0.65 (0.52-1.04) mg/dL Estimated GFR > 60 (>60) mL/min BUN/Creatinine Ratio 10.8 (6-22) Glucose 109 H (70-100) mg/dL Calcium 7.8 L (8.4-10.2) mg/dL Total Bilirubin 0.4 (0.2-1.3) mg/dL AST 30 (14-36) IU/L ALT 28 (<35) IU/L Alkaline Phosphatase 98 (38-126) U/L Total Creatine Kinase 46 (30-135) U/L CK-MB (CK-2) TNP CK-MB (CK-2) Rel Index TNP Troponin I < 0.012 (0.01-0.034) ng/mL Total Protein 7.0 (6.3-8.2) g/dL Albumin 3.9 (3.5-5.0) g/dL Globulin 3.1 (1.7-4.1) g/dL Albumin/Globulin Ratio 1.3 (1.0-2.8) Urine Color Straw Urine Appearance Clear Urine pH 7.0 (4.5-8.0) Ur Specific [place] <=1.005 (1.000-1.035) Urine Protein Negative (Negative) Urine Glucose (UA) Negative (Negative) g/dL Urine Ketones Negative (NEGATIVE) Urine Occult Blood Trace-lysed (Negative) Urine Nitrate Negative (Negative) Urine Bilirubin Negative (NEGATIVE) Urine Urobilinogen 0.2 (0.2) E.U./dL Ur Leukocyte Esterase Negative (NEGATIVE) Urine RBC None seen (0-5/HPF) Urine WBC 0-1/hpf (0-5/HPF) Ur Squamous Epith Cells 5-10 /hpf H (0-5/HPF) Urine Bacteria Moderate (10-30) H (None) Ur Culture Indicated? Cult not indicated U Opiates 300ng/mL cut Negative (Negative) Ur Oxycodone Screen Negative (Negative) Urine Methadone Screen Negative (Negative) Ur Barbiturates Screen Negative (Negative) U Tricyclic Antidepress Negative (Negative) Ur Phencyclidine Scrn Negative (Negative) Ur Amphetamines Screen Negative (Negative) U Methamphetamines Scrn Negative (Negative) Ur MDMA Scrn (Ecstasy) Negative (Negative) U Benzodiazepines Scrn Negative (Negative) Urine Cocaine Screen Negative (Negative) U Marijuana (THC) Screen Positive H (Negative) Ethyl Alcohol < 10 ( - 10) mg/dL SARS-CoV-2 (PCR) (Negative) MDM Narrative Medical decision making narrative: 41-year-old female with history of prior stroke, hypertension and hyperlipidemia presents by EMS for evaluation of stroke-like symptoms that began last night. She is outside the window for tPA and not presenting with criteria to activate code IR but taken directly to CT scan. Thankfully CT of head as well as CTA of head and neck show no significant abnormal findings. Labs are unremarkable. Over the duration of her stay symptoms have completely resolved and at time of admission stroke scale is 0. I have spoken with hospitalist who is happy to accept on his service. Records from prior visits reviewed. Discussed with patient and family who agree with diagnosis and plan. Questions answered to their apparent satisfaction Discharge Plan Departure Patient Disposition: Admitted as Observation Clinical Impression: Brain TIA Admit Date/Time: 04/30/22 04:04 Admit Provider: Samir Jeronimo
[2022-04-30 03:22] LABS: Add Manual Diff / Slide Review NO; Basophils Absolute Auto 100 /uL (0-100); Basophils Percent Auto 0.8 % (0-2); Eosinophils Absolute Auto 100 /uL (0-450); Hematocrit 40.7 % (36-46); Hemoglobin 13.9 g/dL (12.0-16.0); Lymphocytes Absolute Auto 2900 /uL (1100-4500); Mean Corpuscular Hemoglobin 28.7 PG (26-34); Mean Corpuscular Volume 84.4 fL (80-100); Monocytes Absolute Auto 600 /uL (0-900); Monocytes Percent Auto 9.3 % (3-14); Neutrophils Absolute Auto 3000 /uL (1500-7000); Neutrophils Percent Auto 45.9 % (50-75); Platelet Count 358 X10^3/uL (150-400); Red Blood Cell Count 4.82 X10^6/uL (4.0-5.2); Red Cell Distribution Width 14.5 % (11.6-14.8); White Blood Cell Count 6.6 X10^3/uL (4.5-11.0)
[2022-04-30 03:27] LABS: Prothrombin Time 11.5 SECONDS (10.1-12.7)
[2022-04-30 03:30] LABS: PTT Partial Thromboplastin Tim 27 SECONDS (26-36)
[2022-04-30 03:32] LABS: Alanine Aminotransferase 28 IU/L (<35); Albumin 3.9 g/dL (3.5-5.0); Albumin Globulin Ratio 1.3 (1.0-2.8); Alkaline Phosphatase 98 U/L (38-126); Aspartate Aminotransferase 30 IU/L (14-36); BUN Creatinine Ratio 10.8 (6-22); Bilirubin Total 0.4 mg/dL (0.2-1.3); Blood Urea Nitrogen 7 mg/dL (7-17); Calcium 7.8 mg/dL (8.4-10.2); Carbon Dioxide 22 mmol/L (22-32); Chloride 105 mmol/L (98-107); Creatine Kinase 46 U/L (30-135); Estimated Glomerular Filt Rate > 60 mL/min (>60); Ethanol (ETOH) < 10 mg/dL; Globulin 3.1 g/dL (1.7-4.1); Glucose 109 mg/dL (70-100); HEMOLYSIS < 15 (0-50); Potassium 2.9 mmol/L (3.4-5.1); Sodium 139 mmol/L (137-145)
[2022-04-30 03:32] LABS: Appearance Urine UA CLEAR; Bilirubin Urine UA NEGATIVE (NEGATIVE); Glucose Urine UA NEGATIVE (Negative); Ketones Urine UA NEGATIVE (NEGATIVE); Leukocyte Esterase Urine UA NEGATIVE (NEGATIVE); Nitrite Urine UA NEGATIVE (Negative); Occult Blood Urine UA TRACE-LYSED (Negative); Protein Urine UA NEGATIVE (Negative); Specific Gravity Urine UA <=1.005 (1.000-1.035); Urobilinogen Urine UA 0.2 E.U./dL (0.2)
[2022-04-30 03:33] LABS: Color Urine UA Straw
[2022-04-30 03:37] LABS: UR Morphine/Opiate cutoff 300 Negative (Negative); Ur Creatinine Normal (Normal); Ur Specific Gravity Normal (Normal); Urine Amphetamines Negative (Negative); Urine Barbiturates Negative (Negative); Urine Benzodiazepines Negative (Negative); Urine Cocaine Negative (Negative); Urine MDMA Negative (Negative); Urine Methadone Negative (Negative); Urine Methamphetamines Negative (Negative); Urine Oxycodone Negative (Negative); Urine Phencyclidine Negative (Negative); Urine Tetrahydrocannabinol Positive (Negative); Urine Tricyclic Antidepressant Negative (Negative); Urine pH Normal (Normal)
[2022-04-30 03:40] LABS: COVID19 -Nasal RAPID Negative (Negative)
[2022-04-30 03:41] LABS: Bacteria Urine Moderate (10-30); RBC Urine None Seen (0-5/HPF); Squamous Epithelial Cell Urine 5-10 /HPF (0-5/HPF); WBC Urine 0-1/HPF (0-5/HPF)
[2022-04-30 03:42] LABS: Culture Indicated Urine Cult Not Indicated
[2022-04-30 03:43] LABS: Troponin I < 0.012 ng/mL (0.01-0.034)
[2022-04-30] MEDS: ASPIRIN 81 MG CHEW TAB 324 MG PO (04:10)
--- NOTE | 2022-04-30 05:51 | DI.MRI.S_ITS ---
PROCEDURE: MR HEAD/BRAIN WO CON INDICATIONS: TIA / r/o Stroke TECHNIQUE: Noncontrast axial T1 spin echo, axial T2 fast spin echo, sagittal and axial FLAIR, coronal T2 fast spin echo, axial gradient echo, axial diffusion and ADC through the brain. COMPARISON: [facility], CT, CT HEAD/BRAIN WO CON, 01/30/2020, 19:30. CT, FACIAL BONES WO CONTRAST, 06/01/2010, 2:56. [facility], CT, HEAD WITHOUT CONTRAST, 06/01/2010, 2:44. [facility], CT, CT STROKE, 05/21/2020, 17:18. [facility], CT, CT ANGIO HEAD AND NECK, 04/30/2022, 2:38. [facility], CT, CT HEAD/BRAIN WO CON, 04/30/2022, 2:38. FINDINGS: Image quality: Excellent. CSF Spaces: Basal cisterns are patent. No extra-axial fluid collections. Ventricles are normal in size and shape. Brain: No intracranial masses or hemorrhage. There several foci of T2/FLAIR hyperintensity in subcortical and periventricular white matter. Joshua/white matter interface is normal. Brainstem appears normal. Diffusion-weighted images demonstrate no acute ischemic insult. No chronic ischemic insults. Normal intravascular flow voids are present. Skull and face: Calvarium has normal marrow signal. Orbits appear normal. Left mastoidectomy. There is fluid in the left middle air. Sinuses: Sinuses and mastoids are clear. IMPRESSION: 1. No acute intracranial abnormalities. 2. Several foci of T2/FLAIR hyperintensity in subcortical and periventricular white matter. Differential diagnoses are chronic small vessel ischemic change versus a demyelinating process such as multiple sclerosis. Recommend clinical correlation. 3. Left mastoidectomy. Fluid in the left middle air. Please correlate with surgical history and physical examination. Dictated by: Ivett Burger M.D. on 04/30/2022 at 7:45 Approved by: Ivett Burger M.D. on 04/30/2022 at 8:01
--- NOTE | 2022-04-30 05:52 | DI.ECHO.S_ITS ---
[facility]+ [facility] +---------+ : : [address] [place] : : : : [id number] : : : : Phone: [phone] Echocardiogram Report + :Name: JOHNNA BROOKS V Study Date: 04/30/2022 Height: 60 in : :[facility] ReadingLocation: Weight: 130 lb : : Gender: Female BSA: 1.6 m2 : :: 1980 Age: 41 yrs BP: 139/87 mmHg: :Reason For Study: TIA, BUBBLE STUDY : :Ordering Physician: RIP, : :NETO DUNLAP Performed By: Casi Johns : :Referring: NETO ERWIN MD : + Interpretation Summary The ejection fraction is estimated to be 55-60%. Diastolic parameters suggest probable normal left ventricular diastolic function and normal filling pressures. The right ventricle is normal in size and function. After agitated saline contrast injection, a single bubble appears in the left atrium within 3 beats of coughing. This could suggest a very tiny ASD. There is mild tricuspid regurgitation. RVSP 23 mmHg. Procedure: A two-dimensional transthoracic echocardiogram with color flow and Doppler was performed. The study quality was technically adequate. A saline contrast injection was performed to assess for cardiac shunting. The injection was performed through an intravenous line in the right arm. Comparison is made with the echocardiogram of 05/16/2021. The patient was in sinus rhythm with heart rates between 72-101 bpm during the exam. Left Ventricle: There is normal left ventricular wall thickness. The left ventricle is normal in size. The ejection fraction is estimated to be 55-60%. Diastolic parameters suggest probable normal left ventricular diastolic function and normal filling pressures. Right Ventricle: The right ventricle is normal in size and function. Atria: The left atrial size is normal. Right atrial size is normal. Mitral Valve: The mitral valve is normal in structure and function. There is mild mitral regurgitation. Aortic Valve: The aortic valve is trileaflet. The aortic valve opens well. There is no aortic valve stenosis. There is trace aortic regurgitation. Tricuspid Valve: The tricuspid valve is normal in structure and function. There is mild tricuspid regurgitation. The right ventricular systolic pressure is estimated to be at least 23 mmHg based on an estimated right atrial pressure of 3 mm Hg. Pulmonic Valve: The pulmonic valve leaflets are thin and pliable; valve motion is normal. There is trace pulmonic regurgitation. Great Vessels: The aortic root is normal size. The dimensions of the ascending aorta are normal. The IVC is of normal diameter and collapses greater than 50% with a sniff. This suggests a low right atrial pressure of 3 mm Hg. Pericardium/ Pleura There is no pericardial effusion. There is no pleural effusion. MMode/2D Measurements & Calculations LVIDd: 3.9 cm LVOT diam: 1.8 cm LVIDs: 2.6 cm Ao root diam: 2.9 cm FS: 33.8 % asc Aorta Diam: 3.0 cm EPSS: 0.50 cm Ao Arch Diam (Prox Trans): 2.8 cm IVSd: 0.78 cm LVPWd: 0.73 cm LV montes. diameter/BSA (cm/m^2): 2.5 LV sys. diameter/BSA (cm/m^2): 1.7 LA A2 area: 11.6 cm2 RA long axis: 3.7 cm LA A4 area: 10.3 cm2 RA area: 9.8 cm2 LA length (vol): 4.3 cm RA vol: 22.2 ml LA vol: 23.7 ml RA : 14.3 ml/m2 LA vol index: 15.3 ml/m2 IVC diam: 1.5 cm RVD1 (basal): 2.7 cm RVD2 (mid): 2.5 cm TAPSE: 1.7 cm Doppler Measurements & Calculations Ao V2 max: 132.0 cm/sec LVOT Max Efrain: 82.5 cm/sec Ao V2 mean: 90.9 cm/sec LV V1 max P.7 mmHg Ao max P.0 mmHg LV V1 VTI: 17.0 cm Ao mean P.7 mmHg KHADIJAH(I,D): 1.7 cm2 Ao V2 VTI: 24.1 cm KHADIJAH(V,D): 1.5 cm2 sev ratio: 0.70 KHADIJAH indexed to BSA (cm^2/m^2): 1.1 MV E max efrain: 78.4 cm/sec TR max efrain: 223.4 cm/sec MV A max efrain: 99.1 cm/sec TR max P.0 mmHg MV E/A: 0.79 PA V2 max: 85.2 cm/sec Med Peak E' Efrain: 8.4 cm/sec PA V2 mean: 57.3 cm/sec E/E' med: 9.4 PA mean P.5 mmHg Lat Peak E' Efrain: 10.1 cm/sec PA pr(Accel): 24.2 mmHg E/E' lat: 7.7 E/e' average: 8.5 MV dec time: 0.26 sec SV(TAEOT): 41.7 ml Reading Physician:12:23 PM
--- NOTE | 2022-04-30 06:15 | PM.HP.1 ---
History of Present Illness History of Present Illness Date Patient Seen: 04/30/22 Chief complaint: poss stroke Narrative: 41-year-old female nonsmoker with history of asthma, hypertension, prior stroke in 2019 with left-sided symptoms that has completely resolved presents by EMS for evaluation of stroke-like symptoms that started at about 2200 last night.? She had been in her normal state of health and states that she 1st noticed some numbness and tingling around her lips over the course of the day and then in the evening she developed numbness and tingling in her fingertips and upon waking this morning she noticed that the tingling had moved up most of her arm that she noticed it was weak and uncoordinated.? She denies any recent trauma, fever or head injury.? She denies any blurred or double vision nor any trouble with speech.? She denies balance trouble or issues with her lower extremities such as numbness, tingling or weakness.? She is had no chest pain or shortness of breath.? She is taken directly to CT scan but not activated as a code stroke as she is outside of the window for tPA and does not have a sufficiently elevated LAMS score to activate code IR. I saw the patient on the medical floor, she says that she is back to her baseline other than some tingling in her left side of the face. Left upper extremity tingling completely resolved. She denies any weakness. She says that she probably slept on her left side might have caused? Denies any episodes of seizures, incontinence, any other neurological symptoms. She is being feeling sick past 1 week with upper respiratory symptoms and all her family members are also sick. She was in the ER day before was tested negative for COVID and was given Zyrtec. Patient History Medical History AMA (advanced maternal age) multigravida 35+ Asthma (spontaneous vaginal delivery) Surgical History History of cholecystectomy (~2010) S/P dilatation and curettage (~04/11/19) S/P rhinoplasty (~2006) [place] teeth removed Family & Social History Family History Father Diabetes mellitus Hypertension Mother Pancreatic cancer Grandfather Hypertension Diabetes mellitus S/P triple vessel bypass Grandmother Cancer Grandfather No problems noted. Grandmother No problems noted. Social History: household members spouse,children Prior Living Arrangements House Safety & Behavioral: Feels Safe in Current Yes Environment Tobacco & Substance use: Smoking Status Never smoker alcohol intake frequency other Substance Use Type marijuana Comment: Lives with her family. Five children. Very supportive at bedside. Meds Home Medications and Allergies Home Medications Medication Instructions Recorded Confirmed Type lisinopril 10 mg tablet 10 mg PO DAILY 04/30/22 04/30/22 History Allergies Allergy/AdvReac Type Severity Reaction Status Date / Time codeine Allergy Intermediate HIVES Verified 04/30/22 02:54 Review of Systems Review of Systems Narrative: All other systems reviewed, negative other than as mentioned in HPI. Exam Vital Signs (past 8 hours): - 04/30/22 02:55 04/30/22 02:50 04/30/22 02:50 Temperature 98.2 F Pulse Rate 93 H 98 H Respiratory Rate 14 Blood Pressure 133/102 H 133/102 H Pulse Oximetry 96 97 Oxygen Delivery Method Room Air Oxygen Flow Rate 04/30/22 03:05 04/30/22 03:19 04/30/22 03:19 Temperature Pulse Rate 89 96 H Respiratory Rate 28 H Blood Pressure 145/93 H Pulse Oximetry 95 96 Oxygen Delivery Method Oxygen Flow Rate 04/30/22 03:30 04/30/22 03:30 04/30/22 04:06 Temperature Pulse Rate 90 107 H Respiratory Rate 26 H 29 H Blood Pressure 139/87 Pulse Oximetry 97 Oxygen Delivery Method Oxygen Flow Rate 04/30/22 04:17 04/30/22 04:49 Temperature 95.7 F L Pulse Rate 88 Respiratory Rate 17 Blood Pressure 154/109 H Pulse Oximetry 94 Oxygen Delivery Method Room Air Oxygen Flow Rate 0 Oxygen Delivery Method Room Air Oxygen Flow Rate 0 Narrative Exam Narrative: Neuro exam extensive, nonfocal. Unable to elicit any sensory or motor deficits on my exam. Constitutional, HEENT, eyes, neck, chest, respiratory, cardiovascular, GI, , skin, neuro, extremity, psych exam done within normal limits except as mentioned above for positive findings. Objective Labs Result Diagrams: 04/30/22 03:08 04/30/22 03:08 Labs: Laboratory Results - last 24 hr 04/30/22 04/30/22 04/30/22 03:02 03:08 03:08 WBC 6.6 RBC 4.82 Hgb 13.9 Hct 40.7 MCV 84.4 MCH 28.7 MCHC 34.0 RDW 14.5 Plt Count 358 Neut % (Auto) 45.9 L Lymph % (Auto) 43.0 H [place] % (Auto) 9.3 Eos % (Auto) 1.0 L Baso % (Auto) 0.8 Neut # (Auto) 3000 Lymph # (Auto) 2900 [place] # (Auto) 600 Eos # (Auto) 100 Baso # (Auto) 100 PT 11.5 INR 1.0 APTT 27 Sodium Potassium Chloride Carbon Dioxide BUN Creatinine Estimated GFR BUN/Creatinine Ratio Glucose Calcium Total Bilirubin AST ALT Alkaline Phosphatase Total Creatine Kinase CK-MB (CK-2) CK-MB (CK-2) Rel Index Troponin I Total Protein Albumin Globulin Albumin/Globulin Ratio Urine Color Urine Appearance Urine pH Ur Specific [place] Urine Protein Urine Glucose (UA) Urine Ketones Urine Occult Blood Urine Nitrate Urine Bilirubin Urine Urobilinogen Ur Leukocyte Esterase Urine RBC Urine WBC Ur Squamous Epith Cells Urine Bacteria Ur Culture Indicated? U Opiates 300ng/mL cut Ur Oxycodone Screen Urine Methadone Screen Ur Barbiturates Screen U Tricyclic Antidepress Ur Phencyclidine Scrn Ur Amphetamines Screen U Methamphetamines Scrn Ur MDMA Scrn (Ecstasy) U Benzodiazepines Scrn Urine Cocaine Screen U Marijuana (THC) Screen Ethyl Alcohol SARS-CoV-2 (PCR) Negative 04/30/22 04/30/22 04/30/22 03:08 03:27 03:27 WBC RBC Hgb Hct MCV MCH MCHC RDW Plt Count Neut % (Auto) Lymph % (Auto) [place] % (Auto) Eos % (Auto) Baso % (Auto) Neut # (Auto) Lymph # (Auto) [place] # (Auto) Eos # (Auto) Baso # (Auto) PT INR APTT Sodium 139 Potassium 2.9 L Chloride 105 Carbon Dioxide 22 BUN 7 Creatinine 0.65 Estimated GFR > 60 BUN/Creatinine Ratio 10.8 Glucose 109 H Calcium 7.8 L Total Bilirubin 0.4 AST 30 ALT 28 Alkaline Phosphatase 98 Total Creatine Kinase 46 CK-MB (CK-2) TNP CK-MB (CK-2) Rel Index TNP Troponin I < 0.012 Total Protein 7.0 Albumin 3.9 Globulin 3.1 Albumin/Globulin Ratio 1.3 Urine Color Straw Urine Appearance Clear Urine pH 7.0 Ur Specific [place] <=1.005 Urine Protein Negative Urine Glucose (UA) Negative Urine Ketones Negative Urine Occult Blood Trace-lysed Urine Nitrate Negative Urine Bilirubin Negative Urine Urobilinogen 0.2 Ur Leukocyte Esterase Negative Urine RBC None seen Urine WBC 0-1/hpf Ur Squamous Epith Cells 5-10 /hpf H Urine Bacteria Moderate (10-30) H Ur Culture Indicated? Cult not indicated U Opiates 300ng/mL cut Negative Ur Oxycodone Screen Negative Urine Methadone Screen Negative Ur Barbiturates Screen Negative U Tricyclic Antidepress Negative Ur Phencyclidine Scrn Negative Ur Amphetamines Screen Negative U Methamphetamines Scrn Negative Ur MDMA Scrn (Ecstasy) Negative U Benzodiazepines Scrn Negative Urine Cocaine Screen Negative U Marijuana (THC) Screen Positive H Ethyl Alcohol < 10 SARS-CoV-2 (PCR) Assessment & Plan Assessment and plan (1) Acute viral syndrome: Status: Acute (2) Brain TIA: Status: Acute Assessment & Plan narrative: Nonspecific neurological symptoms with left-sided tingling and numbness on face and upper extremity -resolving, most likely TIA -with a history of stroke and hypertension patient is high-risk -admitted for stroke workup, MRI of brain and also echocardiogram. Patient is not on antiplatelet therapy at this time. We will recommend to start her on aspirin full dose. We will start on statin. Other labs are pending. History of hypertension -continue her home lisinopril SCDs for DVT prophylaxis, ambulation as tolerated, do not think patient needs chemical prophylaxis at this time. Diet for GI prophylaxis. Once MRI and echocardiogram done, patient probably can be discharged safely with an outpatient follow-up. Overall prognosis is good. Care plan extensively discussed with the patient and also at bedside, answered all questions. Time Spent With Patient Critical Care time: I spent a total of [] minutes of critical care time on this patient's care today; this time is exclusive of procedural time. Quality VTE Deep Vein Thrombosis/Pulmonary Embolism Present on Admission: No
--- NOTE | 2022-04-30 06:18 | PC.NURSE ---
Pt arrived from ED via wheelchair at 0435, ambulated to bed steady on feet. Pt states tingling in lips and numbness in hand is gone completely. NIH score 0. Passed swallow screen. Pt has cough from upper respiratory infection. Came to ED a few days ago, negative for covid, flu, rsv. RR elevated in high 20s. Oriented to room and call light. Taken to MRI at 0615.
[2022-04-30 06:37] LABS: Cholesterol 142 mg/dL (140-199); HDL Cholesterol 32 mg/dL (40-60); LDL Cholesterol Calculated 84 mg/dL (<100); Triglycerides 128 mg/dL (35-150)
[2022-04-30] MEDS: POTASSIUM CHLORIDE 20 MEQ TAB 40 MEQ PO ×2 (06:57→12:00)
[2022-04-30] MEDS: POTASSIUM CHLORIDE IN WATER 10 MEQ/100 ML PIGGYBACK 100 MEQ IV (06:57)
[2022-04-30] MEDS: ATORVASTATIN 20 MG TABLET 10 MG PO (06:58)
[2022-04-30] MEDS: lisinopriL 10 MG TABLET PO (08:41)
--- NOTE | 2022-04-30 16:45 | P.DS_ITS ---
History of Present Illness History of Present Illness Date Patient Seen: 04/30/22 Chief complaint: poss stroke Narrative: Per admitting provider: 41-year-old female nonsmoker with history of asthma, hypertension, prior stroke in 2019 with left-sided symptoms that has completely resolved presents by EMS for evaluation of stroke-like symptoms that started at about 2200 last night.? She had been in her normal state of health and states that she 1st noticed some numbness and tingling around her lips over the course of the day and then in the evening she developed numbness and tingling in her fingertips and upon waking this morning she noticed that the tingling had moved up most of her arm that she noticed it was weak and uncoordinated.? She denies any recent trauma, fever or head injury.? She denies any blurred or double vision nor any trouble with speech.? She denies balance trouble or issues with her lower extremities such as numbness, tingling or weakness.? She is had no chest pain or shortness of breath.? She is taken directly to CT scan but not activated as a code stroke as she is outside of the window for tPA and does not have a sufficiently elevated LAMS score to activate code IR. I saw the patient on the medical floor, she says that she is back to her baseline other than some tingling in her left side of the face. Left upper extremity tingling completely resolved. She denies any weakness. She says that she probably slept on her left side might have caused? Denies any episodes of seizures, incontinence, any other neurological symptoms. She is being feeling sick past 1 week with upper respiratory symptoms and all her family members are also sick. She was in the ER day before was tested negative for COVID and was given Zyrtec. Discharge Providers Provider Date of admission: 04/30/22 04:04 Discharge Date: 04/30/22 Primary care physician: Pipe Bruner PA-C Discharge provider: Alberto Kumar MD Summary Hospital Course Discharge Diagnosis: 1. Possible TIA 2. History of CVA 3. Hypertension 4. Possible Atrial septal defect 5. Hypokalemia 6. Viral upper respiratory infection Hospital Course: Ms. Mitchell was admitted with left sided symptoms including facial tingling and numbness and also similar symptoms in her left fingers. She had some uncoordinated movements. These all improved in the hospital. She had a low LAMS score and she presented to the hospital outside window for tpa so this was not given. She thought she may have slept oddly on her left side or taken some medications for her cold that may have cause her symptoms. CT head, CTA head/neck and MRI head all showed no acute abnormality. There were nonspecific white matter changes that may be consistent with chronic small vessel ischemic changes or could be seen in MS. She was discharged on aspirin and statin for treatment for possible TIA. In addition she was referred to neurology for further workup for these multiple neurological events and to evaluate for question of MS. On Echo she was noted to have on bubble study a single bubble noted cross the septum consistent with possible small septal defect. She had no lower extremity swelling or pain so DVT was thought very unlikely. She may have this monitored going forward or if indicated possibly closed by cardiology. Exam Vital Signs (past 8 hours): Oxygen Delivery Method Room Air Oxygen Flow Rate 0 Narrative Exam Narrative: GEN: no acute distress CV: regular rate and rhythm PULM: clear bilaterally NEURO: awake, alert, no focal deficits, upper and lower extremities with normal strength, no sensory deficits Objective Labs Result Diagrams: 04/30/22 03:08 04/30/22 03:08 Labs: Laboratory Results - last 24 hr 04/30/22 04/30/22 04/30/22 03:02 03:08 03:08 WBC 6.6 RBC 4.82 Hgb 13.9 Hct 40.7 MCV 84.4 MCH 28.7 MCHC 34.0 RDW 14.5 Plt Count 358 Neut % (Auto) 45.9 L Lymph % (Auto) 43.0 H [place] % (Auto) 9.3 Eos % (Auto) 1.0 L Baso % (Auto) 0.8 Neut # (Auto) 3000 Lymph # (Auto) 2900 [place] # (Auto) 600 Eos # (Auto) 100 Baso # (Auto) 100 PT 11.5 INR 1.0 APTT 27 Sodium Potassium Chloride Carbon Dioxide BUN Creatinine Estimated GFR BUN/Creatinine Ratio Glucose Calcium Total Bilirubin AST ALT Alkaline Phosphatase Total Creatine Kinase CK-MB (CK-2) CK-MB (CK-2) Rel Index Troponin I Total Protein Albumin Globulin Albumin/Globulin Ratio Triglycerides Cholesterol LDL Cholesterol, Calc HDL Cholesterol Urine Color Urine Appearance Urine pH Ur Specific [place] Urine Protein Urine Glucose (UA) Urine Ketones Urine Occult Blood Urine Nitrate Urine Bilirubin Urine Urobilinogen Ur Leukocyte Esterase Urine RBC Urine WBC Ur Squamous Epith Cells Urine Bacteria Ur Culture Indicated? U Opiates 300ng/mL cut Ur Oxycodone Screen Urine Methadone Screen Ur Barbiturates Screen U Tricyclic Antidepress Ur Phencyclidine Scrn Ur Amphetamines Screen U Methamphetamines Scrn Ur MDMA Scrn (Ecstasy) U Benzodiazepines Scrn Urine Cocaine Screen U Marijuana (THC) Screen Ethyl Alcohol SARS-CoV-2 (PCR) Negative 04/30/22 04/30/22 04/30/22 03:08 03:08 03:27 WBC RBC Hgb Hct MCV MCH MCHC RDW Plt Count Neut % (Auto) Lymph % (Auto) [place] % (Auto) Eos % (Auto) Baso % (Auto) Neut # (Auto) Lymph # (Auto) [place] # (Auto) Eos # (Auto) Baso # (Auto) PT INR APTT Sodium 139 Potassium 2.9 L Chloride 105 Carbon Dioxide 22 BUN 7 Creatinine 0.65 Estimated GFR > 60 BUN/Creatinine Ratio 10.8 Glucose 109 H Calcium 7.8 L Total Bilirubin 0.4 AST 30 ALT 28 Alkaline Phosphatase 98 Total Creatine Kinase 46 CK-MB (CK-2) TNP CK-MB (CK-2) Rel Index TNP Troponin I < 0.012 Total Protein 7.0 Albumin 3.9 Globulin 3.1 Albumin/Globulin Ratio 1.3 Triglycerides 128 Cholesterol 142 LDL Cholesterol, Calc 84 HDL Cholesterol 32 L Urine Color Urine Appearance Urine pH Ur Specific [place] Urine Protein Urine Glucose (UA) Urine Ketones Urine Occult Blood Urine Nitrate Urine Bilirubin Urine Urobilinogen Ur Leukocyte Esterase Urine RBC Urine WBC Ur Squamous Epith Cells Urine Bacteria Ur Culture Indicated? U Opiates 300ng/mL cut Negative Ur Oxycodone Screen Negative Urine Methadone Screen Negative Ur Barbiturates Screen Negative U Tricyclic Antidepress Negative Ur Phencyclidine Scrn Negative Ur Amphetamines Screen Negative U Methamphetamines Scrn Negative Ur MDMA Scrn (Ecstasy) Negative U Benzodiazepines Scrn Negative Urine Cocaine Screen Negative U Marijuana (THC) Screen Positive H Ethyl Alcohol < 10 SARS-CoV-2 (PCR) 04/30/22 03:27 WBC RBC Hgb Hct MCV MCH MCHC RDW Plt Count Neut % (Auto) Lymph % (Auto) [place] % (Auto) Eos % (Auto) Baso % (Auto) Neut # (Auto) Lymph # (Auto) [place] # (Auto) Eos # (Auto) Baso # (Auto) PT INR APTT Sodium Potassium Chloride Carbon Dioxide BUN Creatinine Estimated GFR BUN/Creatinine Ratio Glucose Calcium Total Bilirubin AST ALT Alkaline Phosphatase Total Creatine Kinase CK-MB (CK-2) CK-MB (CK-2) Rel Index Troponin I Total Protein Albumin Globulin Albumin/Globulin Ratio Triglycerides Cholesterol LDL Cholesterol, Calc HDL Cholesterol Urine Color Straw Urine Appearance Clear Urine pH 7.[address] [place] <=1.005 Urine Protein Negative Urine Glucose (UA) Negative Urine Ketones Negative Urine Occult Blood Trace-lysed Urine Nitrate Negative Urine Bilirubin Negative Urine Urobilinogen 0.2 Ur Leukocyte Esterase Negative Urine RBC None seen Urine WBC 0-1/hpf Ur Squamous Epith Cells 5-10 /hpf H Urine Bacteria Moderate (10-30) H Ur Culture Indicated? Cult not indicated U Opiates 300ng/mL cut Ur Oxycodone Screen Urine Methadone Screen Ur Barbiturates Screen U Tricyclic Antidepress Ur Phencyclidine Scrn Ur Amphetamines Screen U Methamphetamines Scrn Ur MDMA Scrn (Ecstasy) U Benzodiazepines Scrn Urine Cocaine Screen U Marijuana (THC) Screen Ethyl Alcohol SARS-CoV-2 (PCR) [facility] Medical History AMA (advanced maternal age) multigravida 35+ Asthma (spontaneous vaginal delivery) Surgical History History of cholecystectomy (~2010) S/P dilatation and curettage (~04/11/19) S/P rhinoplasty (~2006) [place] teeth removed Family History Father Diabetes mellitus Hypertension Mother Pancreatic cancer Grandfather Hypertension Diabetes mellitus S/P triple vessel bypass Grandmother Cancer Grandfather No problems noted. Grandmother No problems noted. Social History marital status: household members: spouse and children education level: high school (10th Grade) occupational status: unemployed current occupational exposures/hazards: No special constantine needs: No Smoking Status: Never smoker substance use type: does not use Discharge Plan Discharge Plan Patient Disposition: Home Provider Discharge Comment: Ms. Mitchell came in with numbness. She improved in the hospital. She thought it might be related to some medications she was taking for her cold. She was started on aspirin. She was noted to have a possible atrial septal defect in her heart which appeared very small. She is referred to a neurologist. Discharge orders & Medications Prescriptions: New aspirin [Enteric Coated Aspirin] 81 mg tablet,delayed release (DR/EC) 81 mg PO DAILY Qty: 30 0RF Continued lisinopril 10 mg Tablet 10 mg PO DAILY Follow up/Referrals: [facility] [Provider Group] - 1 Month (please ask your fast food assistant restaurant manager to assist with referal & schedule a appointment for transient neurologic symptoms, TIA vs MS vs other) Pipe Bruner PA-C [Primary Care Provider] - 05/05/22 10:30 am (appt:05/05 @ 10:30 w/djulien banuelos please arrive 15minutes prior to scheduled appointment time) Diet/Activity/Treatments Diet: Regular Discharge Data Primary Care Provider: Pipe Bruner Attending Provider: Samir Jeronimo VTE Deep Vein Thrombosis/Pulmonary Embolism Present on Admission: No
== END 2022-04-30 13:41 | disposition home or self-care (01) ==
LOC: ED 02:37 → AC 04:06
PROVIDERS: Admitting Provider Family Medicine; Emergency Provider Emergency Medicine; PCP Physician Assistant; Visit Provider Family Medicine
DX: R20.0 Anesthesia of skin (principal); J06.9 Acute upper respiratory infection, unspecified; E87.6 Hypokalemia; R29.703 NIHSS score 3; I10 Essential (primary) hypertension; J45.909 Unspecified asthma, uncomplicated; Z86.73 Personal history of transient ischemic attack (TIA), and cerebral infarction without residual deficits; Z20.822 Contact with and (suspected) exposure to COVID-19
CPT/HCPCS: 70450; 70496; 70498; 70551; 80053; 80061; 80305; 80320; 81001; 82550; 84484; 85025; 85610; 85730; 87635; 93005; 93306; 99285; C9803; G0378; Q9967

== ENCOUNTER 2022-05-04 00:35 | Emergency (ER) | payer MEDICAID, OTHER, SELFPAY ==
[2022-04-30 04:47] VITALS: BMI 25.4
[2022-05-04 01:10] VITALS: BP 154/103; PULSE 89; RESP 18; TEMP 36.4; O2SAT 97; BMI 25.4
--- NOTE | 2022-05-04 03:49 | PC.NURSE ---
no answer when called x 2
== END 2022-05-04 03:51 | disposition left against medical advice (07) ==
PROVIDERS: Emergency Provider Emergency Medicine; PCP Physician Assistant
CPT/HCPCS: 99281

== ENCOUNTER 2023-06-10 23:18 | Emergency (ER) | payer MEDICAID, OTHER, SELFPAY ==
[2022-04-30 04:47] VITALS: BMI 25.4
[2023-06-10 23:25] VITALS: BP 155/105; PULSE 94; RESP 15; TEMP 36.5; O2SAT 98; BMI 25.4
[2023-06-10 23:26] VITALS: PULSE 86; O2SAT 97
[2023-06-10 23:27] VITALS: BP 148/87; PULSE 88; O2SAT 97
--- NOTE | 2023-06-10 23:34 | DI.CT.S_ITS ---
PROCEDURE: CT ANGIO HEAD AND NECK INDICATIONS: L SIDED WEAKNESS X30 MIN, NOW RESOLVED TECHNIQUE: After the administration of intravenous contrast, 1 mm thick sections acquired from the aortic arch through the [place] of [place]. 3-dimensional azgyuyq-bygebdkfs-dzcuhxtlqz (MIP) and/or volume rendering reformats were acquired of the central intracranial vasculature and neck separately. For radiation dose reduction, the following was used: automated exposure control, adjustment of mA and/or kV according to patient size. COMPARISON: [facility], CT, CT ANGIO HEAD AND NECK, 04/30/2022, 2:38. FINDINGS: Image quality: Diagnostic HEAD ANGIOGRAPHY: Anterior circulation: ICAs: Normal and symmetric ACAs: Normal and symmetric MCAs: Patent bilaterally. Possible tiny aneurysm versus infundibulum at the M1 bifurcation measuring 1-2 mm. AComm: No aneurysm Venous sinuses: patent Posterior circulation: Dominance: Slightly left dominant Vertebral arteries: No stenosis or occlusion. No aneurysm. Basilar artery: Unremarkable PComms: No aneurysm patient advocate: Unremarkable NECK ANGIOGRAPHY: Aortic arch and subclavian arteries: Normal flow, no aneurysm. CCAs: No stenosis, occlusion, or aneurysm. ICA origins (by NASCET criteria): No hemodynamically significant narrowing. ICAs: No stenosis, occlusion or aneurysm. ECAs: Origins are patent. Vertebral arteries: Unremarkable Soft tissues: No significant mass or lymphadenopathy. There is crowding of the foramen magnum. Lung apices: No apical pneumothorax. There is mosaic attenuation. Bones: No acute or suspicious findings. Opacification of possible postsurgical changes of the left left mastoid air cells, correlate with clinical history IMPRESSION: No high-grade stenosis or large vessel occlusion. Possible tiny aneurysm versus infundibulum at the M1 bifurcation on the right. Other findings as above. Consider MRI if there is high concern for infarct. Any quantitative measurements of stenosis were performed using NASCET criteria. Dictated by: Tex Gates M.D. on 06/11/2023 at 0:32 Approved by: Tex Gates M.D. on 06/11/2023 at 0:39
--- NOTE | 2023-06-10 23:34 | DI.CT.S_ITS ---
PROCEDURE: CT HEAD/BRAIN WO CON INDICATIONS: L SIDED WEAKNESS X30 MINUTES, NOW RESOLVED TECHNIQUE: Noncontrast 4.5 mm thick angled axial sections acquired from the foramen magnum to the vertex, with coronal and sagittal reformats. For radiation dose reduction, the following was used: automated exposure control, adjustment of mA and/or kV according to patient size. COMPARISON: Located [facility], CT, CT HEAD/BRAIN WO CON, 04/30/2022, 2:38. FINDINGS: Image quality: Diagnostic CSF spaces: Basal cisterns are patent. Lateral ventricles are symmetric. Volume: Generally maintained. Brain: No intracranial hemorrhage. Joshua-white differentiation is grossly maintained. Craniofacial structures: Crowding of foramen magnum partially seen. Paranasal sinuses are clear where visualized. Left mastoid opacification, and suspected postsurgical changes Partially empty sella. IMPRESSION: No acute intracranial abnormality. Other findings as above. Dictated by: Tex Gates M.D. on 06/11/2023 at 0:29 Approved by: Tex Gates M.D. on 06/11/2023 at 0:32
[2023-06-10 23:35] VITALS: PULSE 97; RESP 24; O2SAT 98
--- NOTE | 2023-06-10 23:41 | ED.NEUROSD ---
HPI - Neuro Symptoms/Deficit General Chief Complaint: Neuro Symptoms/Deficit Stated Complaint: Left sided weakness Time Seen by Provider: 06/10/23 23:31 Source: patient and EMS Mode of arrival: EMS History of Present Illness HPI Narrative: 42-year-old female with history of hypertension presents by EMS from home for left-sided numbness. Patient states that she was looking through pictures for a when she thought that her left foot was asleep. She tried to walk it off but she states the numbness spread upwards to her left side. EMS reports that on scene personnel noted a left-sided facial droop and left decreased hearing therapist strength. On medic arrival patient had no appreciable left hearing therapist decrease or facial droop, but she was reporting numbness in her left lower extremity. On arrival the patient stated that her symptoms had completely resolved. She no longer endorsed numbness or weakness. She states that a similar event happened 3-4 years ago where she was given tPA and transferred to [facility], but was subsequently told that ?everything was normal?. She states that she has no neurologic deficits at baseline. On Anticoagulants: No Related Data Home Medications Medication Instructions Recorded Confirmed lisinopril 10 mg tablet 10 mg PO DAILY 04/30/22 04/30/22 Previous Rx's Medication Instructions Recorded aspirin 81 mg tablet,delayed 81 mg PO DAILY #30 tabs 04/30/22 release (Enteric Coated Aspirin) Allergies Allergy/AdvReac Type Severity Reaction Status Date / Time codeine Allergy Intermediate HIVES Verified 04/30/22 02:54 Review of Systems Review of Systems Narrative: Otherwise negative Hematologic/Lymphatic On Anticoagulants: No Patient History Medical History (Updated 06/11/23 @ 01:19 by Ashlyn Singh MD) AMA (advanced maternal age) multigravida 35+ (spontaneous vaginal delivery) Asthma Surgical History [place] teeth removed S/P dilatation and curettage (~04/11/19) S/P rhinoplasty (~2006) History of cholecystectomy (~2010) Family History Father Diabetes mellitus Hypertension Mother Pancreatic cancer Grandfather Hypertension Diabetes mellitus S/P triple vessel bypass Grandmother Cancer Grandfather No problems noted. Grandmother No problems noted. Social History marital status: household members: spouse and children education level: high school (10th Grade) occupational status: unemployed current occupational exposures/hazards: No special constantine needs: No Smoking Status: Never smoker substance use type: does not use Smoking Status: Never smoker alcohol intake frequency: other Substance Use Type: marijuana Exam Initial Vital Signs Initial Vital Signs: Vital Signs Temperature 97.7 F 06/10/23 23:25 Pulse Rate 94 H 06/10/23 23:25 Respiratory Rate 15 06/10/23 23:25 Blood Pressure 155/105 H 06/10/23 23:25 Pulse Oximetry 98 06/10/23 23:25 Oxygen Delivery Method Room Air 06/10/23 23:25 Const: Awake, alert, no acute distress, nontoxic appearing Eyes: PERRL, EOMI, conjunctiva normal ENT: Atraumatic, dentition normal, mucous membranes moist Cardiac: regular rate, regular rhythm RESP: unlabored, clear bilaterally, no wheezing GI: Atraumatic, soft, nontender, nondistended, no rebound, no guarding MSK: Atraumatic, full range of motion, pulses equal Skin: Warm, Dry, intact, no rashes Neuro: AO x3, CN II-XII grossly intact, sensation intact and equal upper and lower extremities, no pronator drift, no lower extremity drift, no ataxia, NIH 0 Psych: affect normal, mood normal, not suicidal, not homicidal Scores ABCD2 Age >= 60 years: no Initial BP. Either SBP >= 140 or DBP >= 90.: yes Clinical features of the TIA: unilateral weakness Duration of symptoms: 10-59 minutes History of diabetes: no ABCD2 Score: 4 Course Orders Ordered: ED Orders 06/10/23 23:30 CBC Auto Diff [Complete Blood Count AUTO DIFF] Stat CMP [Comprehensive Metabolic Panel] Stat PT [Prothrombin Time INR] Stat PTT Partial Thromboplastin Miguel Stat 06/10/23 23:34 CT angio head and neck Stat CT head/brain wo con Stat 06/10/23 23:40 EKG-12 Lead Stat Discontinued Medications Aspirin (Aspirin Ec 325 Mg Tablet) 325 mg PO NOW ONE Stop: 06/11/23 01:04 Clopidogrel Bisulfate (Clopidogrel 75 Mg Tablet) 75 mg PO NOW ONE Stop: 06/11/23 01:04 Vital Signs Vital signs: Vital Signs - 8 hr 06/10/23 23:25 06/10/23 23:26 06/10/23 23:27 Temperature 97.7 F Pulse Rate 94 H 86 Respiratory Rate 15 Blood Pressure 155/105 H 148/87 H Pulse Oximetry 98 97 Oxygen Delivery Method Room Air 06/10/23 23:27 06/10/23 23:35 06/11/23 00:00 Temperature Pulse Rate 88 97 H 92 H Respiratory Rate 24 26 H Blood Pressure Pulse Oximetry 97 98 98 Oxygen Delivery Method MDM - Neuro Symptoms/Deficit Differential Diagnosis Differential diagnosis: Likely cerebrovascular accident and transient cerebral ischemia Lab Data 06/10/23 23:30 06/10/23 23:30 Labs: Lab Results 06/10/23 Range/Units 23:30 WBC 11.0 (4.5-11.0) X10^3/uL RBC 4.67 (4.0-5.2) X10^6/uL Hgb 13.6 (12.0-16.0) g/dL Hct 40.2 (36-46) % MCV 86.1 (80-100) fL MCH 29.1 (26-34) PG MCHC 33.8 (30-36) % RDW 14.0 (11.6-14.8) % Plt Count 368 (150-400) X10^3/uL Neut % (Auto) 57.1 (50-75) % Lymph % (Auto) 31.9 (25-40) % Dawson % (Auto) 7.4 (3-14) % Eos % (Auto) 2.5 (2-4) % Baso % (Auto) 1.1 (0-2) % Neut # (Auto) 6300 (8657-6467) /uL Lymph # (Auto) 3500 (0450-2378) /uL Dawson # (Auto) 800 (0-900) /uL Eos # (Auto) 300 (0-450) /uL Baso # (Auto) 100 (0-100) /uL PT 13.0 H (9.4-12.5) SECONDS INR 1.1 (0.9-1.3) APTT 32 (25.1-36.5) SECONDS Sodium 137 (137-145) mmol/L Potassium 3.5 (3.4-5.1) mmol/L Chloride 108 H (98-107) mmol/L Carbon Dioxide 18 L (22-32) mmol/L BUN 6 L (7-17) mg/dL Creatinine 0.62 (0.52-1.04) mg/dL Estimated GFR > 60 (>60) mL/min BUN/Creatinine Ratio 9.7 (6-22) Glucose 120 H (70-100) mg/dL Calcium 8.8 (8.4-10.2) mg/dL Total Bilirubin 0.6 (0.2-1.3) mg/dL AST 17 (14-36) IU/L ALT 13 (<35) IU/L Alkaline Phosphatase 85 (38-126) U/L Total Protein 7.5 (6.3-8.2) g/dL Albumin 4.0 (3.5-5.0) g/dL Globulin 3.5 (1.7-4.1) g/dL Albumin/Globulin Ratio 1.1 (1.0-2.8) ECG Data Interpretation: Normal sinus rhythm, rate 86 beats per minute. Normal UT, no ST T wave changes, no STEMI MDM Narrative Medical decision making narrative: Patient presents from home for now resolved left-sided symptoms. There was question of if patient had left decreased hearing therapist strength and left facial droop, paramedics did not notice these deficits and patient's only reported symptom was left leg weakness. This has resolved since presentation to the emergency department. On my evaluation patient's NIH score is 0. We will order CT angio, noncontrast CT brain, laboratory work. Laboratory work is reviewed, records from [facility] from May 2020 reviewed, patient's MRI noted to have Chiari 1 malformation but no acute ischemic findings. Consulted with [facility] neurology, who reviewed case and imaging. Stated that patient had ABCD2 score of 3 which is borderline for needing dual antiplatelet therapy, but did recommend admission for echo, MRI, stroke workup. Discussed labs, imaging, neurology recommendations with patient has been and recommended admission. They are in agreement. Initially after agreeing to admission patient called me to her room to state that she had changed her mind about staying for admission. She states that she is fairly certain that this episode was related to anxiety around her sister's and . She states that she has had no symptoms since return to the emergency department. I informed the patient that she would be leaving against medical advice, she states she understands this risk, but she states that she has her blood pressure medication, aspirin, and Plavix at home as well as refills at her pharmacy. She has a neurologist that she will call 1st thing tomorrow morning to schedule the next available follow up appointment. Has been at bedside is in agreement with plan. Discharge Plan Departure Patient Disposition: Left Against Medical Advice Clinical Impression: Left sided numbness, Left against medical advice Instructions: DI for Transient Ischemic Attack Activity Restrictions/Additional Instructions: Make sure to take aspirin and Plavix daily. Please restart taking your blood pressure medication. Call your neurologist office 1st thing tomorrow morning for the next available follow up appointment. Please return to the emergency department for any new or worsening symptoms. Prescriptions: No Action lisinopril 10 mg Tablet 10 mg PO DAILY aspirin [Enteric Coated Aspirin] 81 mg tablet,delayed release (DR/EC) 81 mg PO DAILY Qty: 30 0RF Referrals: Pipe Bruner PA-C [Primary Care Provider] - Stand Alone Forms: Patient Portal/API, Against Medical Advice
[2023-06-10 23:45] LABS: INR 1.1 (0.9-1.3)
[2023-06-10 23:48] LABS: PTT Partial Thromboplastin Tim 32 SECONDS (25.1-36.5)
[2023-06-10 23:49] LABS: Add Manual Diff / Slide Review NO; Basophils Absolute Auto 100 /uL (0-100); Basophils Percent Auto 1.1 % (0-2); Eosinophils Absolute Auto 300 /uL (0-450); Eosinophils Percent Auto 2.5 % (2-4); Hematocrit 40.2 % (36-46); Hemoglobin 13.6 g/dL (12.0-16.0); Lymphocytes Absolute Auto 3500 /uL (1100-4500); Lymphocytes Percent Auto 31.9 % (25-40); Mean Corpuscular HGB Conc 33.8 % (30-36); Mean Corpuscular Hemoglobin 29.1 PG (26-34); Mean Corpuscular Volume 86.1 fL (80-100); Monocytes Absolute Auto 800 /uL (0-900); Monocytes Percent Auto 7.4 % (3-14); Neutrophils Absolute Auto 6300 /uL (1500-7000); Neutrophils Percent Auto 57.1 % (50-75); Platelet Count 368 X10^3/uL (150-400); Red Blood Cell Count 4.67 X10^6/uL (4.0-5.2)
[2023-06-10 23:51] LABS: Alanine Aminotransferase 13 IU/L (<35); Albumin Globulin Ratio 1.1 (1.0-2.8); Alkaline Phosphatase 85 U/L (38-126); Aspartate Aminotransferase 17 IU/L (14-36); BUN Creatinine Ratio 9.7 (6-22); Bilirubin Total 0.6 mg/dL (0.2-1.3); Blood Urea Nitrogen 6 mg/dL (7-17); Calcium 8.8 mg/dL (8.4-10.2); Carbon Dioxide 18 mmol/L (22-32); Chloride 108 mmol/L (98-107); Estimated Glomerular Filt Rate > 60 mL/min (>60); Globulin 3.5 g/dL (1.7-4.1); Glucose 120 mg/dL (70-100); HEMOLYSIS < 15 (0-50); Potassium 3.5 mmol/L (3.4-5.1); Sodium 137 mmol/L (137-145); Total Protein 7.5 g/dL (6.3-8.2)
[2023-06-11] VITALS: PULSE 92; RESP 26; O2SAT 98
--- NOTE | 2023-06-11 00:02 | PC.NURSE ---
Pt report to this RN that while sitting cross legged she had gradual on set of tingling/ numbness in LLe starting in the toes that eventually went to her knee. Denies any other SX. Reports becoming anxious due to hx of CVA. Pt reports that SX resolved before arriving at the ED.
[2023-06-11 00:30] VITALS: PULSE 88; RESP 30; O2SAT 98
[2023-06-11 01:00] VITALS: PULSE 80; RESP 24; O2SAT 96
[2023-06-11] MEDS: ASPIRIN EC 325 MG TABLET PO (01:24)
[2023-06-11] MEDS: CLOPIDOGREL 75 MG TABLET PO (01:24)
[2023-06-11 01:27] VITALS: BP 171/101; PULSE 86; O2SAT 94
== END 2023-06-11 01:31 | disposition left against medical advice (07) ==
PROVIDERS: Emergency Provider Emergency Medicine; PCP Physician Assistant
DX: R20.0 Anesthesia of skin (principal)
CPT/HCPCS: 70450; 70496; 70498; 80053; 85025; 85610; 85730; 93005; 93010; 99284

== ENCOUNTER → 2023-06-24 08:45 | Outpatient (CLI) | payer OTHER, SELFPAY ==
[2022-04-30 04:47] VITALS: BMI 25.4
--- NOTE | 2023-06-24 08:47 | DI.RAD.S_ITS ---
PROCEDURE: XR CHEST 2V INDICATIONS: ACUTE COUGH TECHNIQUE: 2 views of the chest were acquired. COMPARISON: [facility], CR, XR CHEST 1V, 04/25/2022, 17:02. [facility], CR, XR CHEST 1V, 06/28/2020, 11:55. FINDINGS: Surgical changes and devices: None. Lungs and pleura: Lungs are clear. No pleural effusions or pneumothorax. Mediastinum: Mediastinal contours are normal. Heart size is normal. Bones and chest wall: No suspicious bony abnormalities. Soft tissues appear unremarkable. IMPRESSION: No acute cardiopulmonary abnormality is seen. Dictated by: Torey Earl M.D. on 06/24/2023 at 11:45 Approved by: Torey Earl M.D. on 06/24/2023 at 11:46
== END ==
PROVIDERS: PCP Physician Assistant; Referring Provider Registered Nurse; Visit Provider Registered Nurse
DX: R05.1 Acute cough (principal)
CPT/HCPCS: 71046